=== PATIENT | female | born 1960 | race African-American/Black ===

== ENCOUNTER 2016-09-19 10:35 | Emergency (ER) ==
[2016-09-19 11:24] LABS: MANUAL DIFF NEEDED? NO
[2016-09-19 11:25] LABS: URINE SOURCE CLEAN CATCH
[2016-09-19 11:29] LABS: BASO% 0.3 % (0.0-0.8); EOS# 0.03 X1000 (0.0-0.7); EOS% 0.3 % (0.0-10.0); HEMATOCRIT 37.6 % (37.0-47.0); HEMOGLOBIN 12.5 g/dL (12.0-16.0); LYMPH# 1.07 X1000 (1.2-3.4); LYMPH% 11.2 % (20.5-51.1); MCH 28.7 PG (27-31); MCHC 33.2 g/dL (33-37); MCV 86.2 FL (81-99); MONO# 0.78 X1000 (0.11-0.59); MONO% 8.2 % (1.7-9.3); MPV 9.8 FL (7.4-10.4); PLT 313 X1000 (130-400); RBC 4.36 XMIL (4.2-5.4)
[2016-09-19 11:33] LABS: BILIRUBIN URINE NEGATIVE (NEGATIVE); BLOOD URINE NEGATIVE (NEGATIVE); COLOR YELLOW; GLUCOSE URINE NEGATIVE (NEGATIVE); LEUKOCYTES URINE LARGE (NEGATIVE); NITRITE URINE NEGATIVE (NEGATIVE); PROTEIN URINE TRACE mg/dL (NEGATIVE); SP GRAVITY URINE 1.021; TURBIDITY URINE HAZY (CLEAR); UROBILINOGEN URINE NORMAL (NORMAL)
[2016-09-19 11:35] LABS: URINE MICRO REVIEW NEEDED? YES
[2016-09-19 11:43] LABS: AGAP 14; ALBUMIN 3.9 g/dL (3.5-5.0); ALKALINE PHOSPHATASE 111 U/L (32-104); AMYLASE 78 U/L (20-200); BUN 8 mg/dL (8-22); CALCIUM 9.3 mg/dL (8.8-10.2); CHLORIDE 97 mmol/L (98-107); COSMO 270; GOT 14 U/L (10-30); GPT 10 U/L (10-36); LIPASE 17 U/L (13-60); POTASSIUM 3.9 mmol/L (3.5-5.1); SODIUM 136 mmol/L (136-145); TCO2 25 mmol/L (25-35); TOTAL BILIRUBIN 0.38 mg/dL (0.20-1.00); TOTAL PROTEIN 7.5 g/dL (6.3-8.3)
[2016-09-19 11:48] LABS: UR EPITHELIAL CELLS >10 /HPF (<10); URINE BACTERIA 2+ /HPF; URINE CULTURE NEEDED? YES; URINE RBC <10 /HPF (<10)
[2016-09-19 11:54] LABS: URINE CASTS NONE SEEN; URINE CRYSTALS NONE SEEN; URINE SMALL ROUND CELLS NONE SEEN
--- NOTE | 2016-09-19 13:45 | PROVIDER DOCUMENTATION ---
HPI-Abdominal Pain/GI Problem - General Chief Complaint: Abdominal Pain Stated Complaint: ABD PAIN,RT /LT SIDE PAIN Time Seen by Provider: 09/19/16 13:29 Source: patient Allergies/Adverse Reactions: Patient Allergies Allergy/AdvReac Type Severity Reaction Status Date / Time No Known Allergies Allergy Verified 01/06/16 00:30 Home Medications: Home Medication List Medication Instructions Recorded Confirmed Last Taken Type Albuterol Sulfate [Proair Hfa] 8.5 gm IH Q4-6H PRN PRN 01/02/16 01/06/16 History Bimatoprost 2.5 ml OP QHS 01/02/16 01/06/16 01/05/16 History Hydrocodone/Acetaminophen [[place] 1 each PO DAILY PRN PRN #20 tablet 01/05/1603/1501/05/16 Rx 7.5-325 Tablet] Nicotine Patch [Nicoderm Patch] 42 mg TD DAILY #14 [email or web address] 01/05/16 01/06/16 01/05/16 Rx Benzonatate [Tessalon] 100 mg PO TID PRN PRN #21 capsule 09/19/16 Unknown Rx Sulfamethoxazole/Trimethoprim 1 each PO BID #14 tablet 09/19/16 Unknown Rx [Bactrim Ds Tablet] - History of Present Illness-ABD Nature of Presenting Problems: 55 y/o F with history of COPD presents with RUQ pain that began last night. Patient states pain is cramping and intermittent and worse with movement. She reports similar pain in the past when she gets "muscle cramps". She denies any history of abdominal surgery. Abdominal Pain Onset Location: reports: RUQ Pain Radiation: reports: no radiation Quality of Pain: reports: cramping Severity in ED: reports: moderate Onset/Duration: reports: last night Timing: reports: still present, intermittent Activities at Onset: reports: none Exposure to sick contacts?: No Modifying Factors: improves with: movement (worsens) Associated Symptoms: reports: cough (chronic secondary to COPD). denies: back/ neck pain, chest pain, diarrhea, fever/chills, nausea, vomiting Last BM: this morning Dark Stools Present?: reports: none noticed Rectal Bleeding: reports: none Rectal Pain: reports: none Emesis Description: reports: none Review of Systems - Adult - REVIEW OF SYSTEMS - ADULT Constitutional: reports: no symptoms reported. denies: chills, fever Eyes: reports: no symptoms reported. denies: decreased vision, blurred vision Ears, Nose, Mouth & Throat: reports: no symptoms reported. denies: ear pain, hearing loss Cardiovascular: reports: no symptoms reported. denies: chest pain Respiratory: reports: chronic cough. denies: shortness of breath, wheezing Gastrointestinal: reports: see HPI Genitourinary: reports: no symptoms reported. denies: dysuria, discharge, frequency, flank pain, hematuria Musculoskeletal: reports: no symptoms reported. denies: back pain, neck pain Integumentary: reports: no symptoms reported. denies: itching, rash Neurological: reports: no symptoms reported. denies: dizziness/vertigo, headache/migraines Psychiatric: reports: no symptoms reported Endocrine: reports: no symptoms reported Hematologic/Lymphatic: reports: no symptoms reported Allergic/Immunologic: reports: no symptoms reported All Other Systems: Reviewed and Negative Past History - Adult - PAST MEDICAL HISTORY-ADULT Review of Records: reports: Nursing Assessment Review, Medications Reviewed Major Childhood Illnesses: reports: denies history Cardiovascular: reports: hyperlipidemia Respiratory: reports: COPD Endocrine/Immune: reports: anemia Other Conditions: reports: other cancer (throat), other (tongue/throat cancer) - PRIOR SURGERIES/PROCEDURES Surgical/Procedure History: reports: BTL, other (tumor removed in throat) - IMMUNIZATION STATUS Childhood Immunizations: See Nurse Assessment Flu Vaccine: See Nurse Assessment - FAMILY HISTORY Family History: reviewed, not pertinent Physical Exam-General - PHYSICAL EXAM-ADULT Initial Vital Signs Reviewed: Yes - CONSTITUTIONAL General Appearance: appears well, alert, no apparent distress - EYES Eyes: PERRL/EOMI, pink conjunctivae - HEAD, EARS, NOSE, MOUTH & THROAT HENMT: normocephalic/atraumatic, moist mucous membranes - NECK Neck: non-tender, full range of motion, supple - RESPIRATORY Respiratory: chest non-tender, lungs clear, normal breath sounds, no pleuratic chest pain, no respiratory distress, no accessory muscle use - CARDIOVASCULAR Cardiovascular: normal peripheral pulses, regular rate, rhythm, no edema - GASTROINTESTINAL (ABDOMEN) Abdominal Exam: normal bowel sounds, soft, tenderness (RUQ) - LYMPHATIC Lymphatic: no adenopathy - MUSCULOSKELETAL Back Exam: normal inspection, no CVA tenderness, no vertebral tenderness Extremity: normal inspection - SKIN Integumentary: normal color, normal turgor, warm/dry - NEUROLOGIC Neurologic: grossly normal, no motor/sensory deficits - PSYCHIATRIC Psych/Mental Status: normal mood/affect, normal thought content, normal thought process, oriented x 3 Progress - PLAN OF CARE/RESULTS Progress/Plan/Lab Results: Laboratory Tests 09/19/16 09/19/16 09/19/16 10:57 10:57 11:00 WBC 9.56 RBC 4.36 Hgb 12.5 Hct 37.6 MCV 86.2 MCH 28.7 MCHC 33.2 RDW Std Deviation 14.3 Plt Count 313 MPV 9.8 Immature Gran % (Auto) 0.0 Neut % (Auto) 80.0 H Lymph % (Auto) 11.2 L Bucks % (Auto) 8.2 Eos % (Auto) 0.3 Baso % (Auto) 0.3 Immature Gran # (Auto) 0.00 Neut # (Auto) 7.65 H Lymph # (Auto) 1.07 L Bucks # (Auto) 0.78 H Eos # (Auto) 0.03 Baso # (Auto) 0.03 Sodium 136 Potassium 3.9 Chloride 97 L Carbon Dioxide 25 Anion Gap 14 BUN 8 Creatinine 0.8 Estimated GFR/1.73 m2 > 60 BUN/Creatinine Ratio 10 Glucose 92 Calculated Osmolality 270 Calcium 9.3 Total Bilirubin 0.38 AST 14 ALT 10 Alkaline Phosphatase 111 H Total Protein 7.5 Albumin 3.9 Globulin 3.6 Albumin/Globulin Ratio 1.1 Amylase 78 Lipase 17 Urine Source CLEAN CATCH Urine Color YELLOW Urine Turbidity HAZY Urine pH 6.0 Ur Specific [place] 1.021 Urine Protein TRACE A Ur Glucose (Stick) NEGATIVE Ur Ketones (Stick) NEGATIVE Urine Blood NEGATIVE Urine Nitrite NEGATIVE Urine Bilirubin NEGATIVE Urobilinogen Dipstick NORMAL Urine Leukocytes LARGE A Urine WBC (Auto) 10-20 A Urine RBC (Auto) <10 U Epithel Cells (Auto) >10 A Urine Bacteria (Auto) 2+ Urine Crystals NONE SEEN Small Round Cells NONE SEEN Urine Casts NONE SEEN Urine Yeast-like Cells NONE SEEN Orders Category Date Time Status CHEST-2 VIEWS [RAD] Stat Exams 09/19/16 13:28 Completed US ABDOMEN-COMPLETE [US] Stat Exams 09/19/16 13:28 Draft AMYLASE [CHEM] Stat Lab 09/19/16 10:57 Completed CBC WITH ELECTRONIC DIFF [HEME] Stat Lab 09/19/16 10:57 Completed COMPREHENSIVE METABOLIC PANEL [CHEM] Stat Lab 09/19/16 10:57 Completed LIPASE [CHEM] Stat Lab 09/19/16 10:57 Completed URINALYSIS W/POSS RFLX CULT [URINALYSIS] Stat Lab 09/19/16 11:00 Completed URINE CULTURE [RM] Routine Lab 09/19/16 12:28 Received URINE MANUAL MICROSCOPIC [URINALYSIS] Stat Lab 09/19/16 11:00 Completed Vital Signs Temp Pulse Resp BP Pulse Ox 09/19/16 10:51 98.4 F 86 20 104/75 100 No Known Allergies Allergy (Verified 01/06/16 00:30) Albuterol Sulfate [Proair Hfa] 8.5 gm IH Q4-6H PRN PRN 01/02/16 Bimatoprost 2.5 ml OP QHS 01/02/16 Hydrocodone/Acetaminophen [[place] 7.5-325 Tablet] 1 each PO DAILY PRN PRN #20 tablet 01/05/16 Nicotine Patch [Nicoderm Patch] 42 mg TD DAILY #14 [email or web address] 01/05/16 I&O 09/18/16 09/19/16 09/20/16 06:59 06:59 06:59 Output Total 30 Balance -30 Laboratory 09/19/16 09/19/16 09/19/16 11:00 10:57 10:57 WBC 9.56 RBC 4.36 Hgb 12.5 Hct 37.6 MCV 86.2 MCH 28.7 MCHC 33.2 RDW Std Deviation 14.3 Plt Count 313 MPV 9.8 Immature Gran % (Auto) 0.0 Neut % (Auto) 80.0 H Lymph % (Auto) 11.2 L Bucks % (Auto) 8.2 Eos % (Auto) 0.3 Baso % (Auto) 0.3 Immature Gran # (Auto) 0.00 Neut # (Auto) 7.65 H Lymph # (Auto) 1.07 L Bucks # (Auto) 0.78 H Eos # (Auto) 0.03 Baso # (Auto) 0.03 Sodium 136 Potassium 3.9 Chloride 97 L Carbon Dioxide 25 Anion Gap 14 BUN 8 Creatinine 0.8 Estimated GFR/1.73 m2 > 60 BUN/Creatinine Ratio 10 Glucose 92 Calculated Osmolality 270 Calcium 9.3 Total Bilirubin 0.38 AST 14 ALT 10 Alkaline Phosphatase 111 H Total Protein 7.5 Albumin 3.9 Globulin 3.6 Albumin/Globulin Ratio 1.1 Amylase 78 Lipase 17 Urine Source CLEAN CATCH Urine Color YELLOW Urine Turbidity HAZY Urine pH 6.0 Ur Specific [place] 1.021 Urine Protein TRACE A Ur Glucose (Stick) NEGATIVE Ur Ketones (Stick) NEGATIVE Urine Blood NEGATIVE Urine Nitrite NEGATIVE Urine Bilirubin NEGATIVE Urobilinogen Dipstick NORMAL Urine Leukocytes LARGE A Urine WBC (Auto) 10-20 A Urine RBC (Auto) <10 U Epithel Cells (Auto) >10 A Urine Bacteria (Auto) 2+ Urine Crystals NONE SEEN Small Round Cells NONE SEEN Urine Casts NONE SEEN Urine Yeast-like Cells NONE SEEN - REASSESSMENT Reassessment #1 Time Reassessed: 15:21 (Patient stable. CXR shows poss RUL infiltrate. Normal WBC and SpO2 100%. UA with WBC and bacteria, but also contaminated with epithelial cells. Discussed with Dr. Low who also viewed the xray with me. Advised bactrim to cover for poss infiltrate and UTI.) Status: unchanged - XRAY 1 XRAY Study: Chest XRAY Interpretation: poss RUL infiltrate vs. fibrosis - CT/MRI 1 CT Study: Abdomen CT Results: no acute process Departure - Departure Time of Disposition Order: 15:23 DIAGNOSIS: Lung infiltrate UTI (urinary tract infection) Qualifiers: Urinary tract infection type: site unspecified Disposition: HOME 01 Certified Medical Emergency: Emergent Condition: Good Additional Instructions: Follow up with your primary care doctor for recheck and repeat chest xray within 1 week. Return to ER for any new or worsening symptoms. ED Follow Up Instructions: You have been treated by a care provider in the Emergency Department. These instructions are being provided to you so you can have an understanding of how to care for yourself upon discharge. Upon discharge from the Emergency Department, you are responsible for making arrangements for follow-up care by a physician of your choice. Take all prescribed medications as directed. Return to the Emergency Department immediately for any new or worsening symptoms. You may call the Physician Referral phone number at [phone] to obtain a list of Physicians who are taking new patients. Prescriptions: Sulfamethoxazole/Trimethoprim [Bactrim Ds Tablet] 1 each PO BID #14 tablet Benzonatate [Tessalon] 100 mg PO TID PRN PRN #21 capsule PRN Reason: Cough Attestation - Physician/ IAN Attestation Patient care was provided by Advanced Practice Provider:: Yes Advanced Practice Provider:: Sosa Stewart Advanced Practice Provider documentation review:: The Mid-level provider documentation, treatment plan and medical decision making was reviewed by the physician who agrees with all treatment and medical decision making by the MLP.
--- NOTE | 2016-09-19 14:42 | Diag Imaging Result Document ---
PROCEDURE NAME: US ABDOMEN-COMPLETE - 09/19/2016 COMPLETE ABDOMINAL ULTRASOUND: COMPARISON: None available. FINDINGS: The gallbladder appears normal with no stones, wall thickening, or pericholecystic fluid. The common bile duct is normal in diameter. Sonographic Wesley's sign was reported to be negative. The liver, visualized pancreas, aorta, and IVC are grossly unremarkable. There is a 1.1 cm simple-appearing renal cyst at the upper pole of the left kidney. The kidneys are grossly unremarkable, otherwise. IMPRESSION: Essentially unremarkable abdominal ultrasound.
--- NOTE | 2016-09-19 15:02 | Diag Imaging Result Document ---
PROCEDURE NAME: CHEST-2 VIEWS - 09/19/2016 FRONTAL AND LATERAL CHEST, TWO VIEWS: COMPARISON: 01/02/2016. FINDINGS: The lungs are well expanded. The heart is not enlarged. The pulmonary vessels are not distended. There is fibrosis in the upper right lung. However, the markings are more pronounced on the current exam thus there may be an underlying infiltrate as well. No pleural effusions. IMPRESSION: I suspect that there is combination of fibrosis and infiltrates in the upper right lung.
[2016-09-19 15:48] VITALS: BP 117/78
== END 2016-09-19 15:48 | disposition home or self-care (01) ==
LOC: ED 10:35
DX: N39.0 Urinary tract infection, site not specified (principal); R91.8 Other nonspecific abnormal finding of lung field; R10.11 Right upper quadrant pain; R05 Cough; R10.811 Right upper quadrant abdominal tenderness; E78.5 Hyperlipidemia, unspecified; J44.9 Chronic obstructive pulmonary disease, unspecified; Z79.899 Other long term (current) drug therapy; Z85.810 Personal history of malignant neoplasm of tongue; Z85.818 Personal history of malignant neoplasm of other sites of lip, oral cavity, and pharynx
CPT/HCPCS: 71020; 76700; 80053; 81001; 82150; 83690; 85025; 87088

== ENCOUNTER 2017-02-09 05:56 | Inpatient (IN) ==
[2017-02-09] MEDS ORDERED: D50W SYRINGE IV ONE ×2 (06:00→14:38)
[2017-02-09] MEDS ORDERED: D50W SYRINGE ONE (06:02)
[2017-02-09] MEDS ORDERED: NARCAN ONE (06:08)
[2017-02-09] MEDS ORDERED: ATIVAN ONE (06:11)
[2017-02-09] MEDS ORDERED: ATIVAN IV ONE (06:15)
[2017-02-09] MEDS ORDERED: ZOFRAN IV ONE (06:24)
[2017-02-09] MEDS ORDERED: NS 1,000 ML IV ONE ×2 (06:24→08:47)
[2017-02-09 06:33] LABS: MANUAL DIFF NEEDED? NO; URINE CULTURE NEEDED? NO; URINE MICRO REVIEW NEEDED? NO; URINE SOURCE CLEAN CATCH
[2017-02-09] MEDS ORDERED: NARCAN IV ONE (06:39)
[2017-02-09 06:40] LABS: ALLEN TEST YES; BE -4.9 mmoll (-3.0-3.0); BLOOD TYPE ARTERIAL; DRAW SITE R RADIAL; METHB 1.3 % (0.0-1.5); O2(CT) 15.8 mL/dL (15.0-23.0); PCO2(98.6) 45 mmHg (35-45); PO2(98.6) 104 mmHg (60-100); SAMPLE BLOOD; SAO2 99.1 % (95.0-100.0); pH(98.6) 7.29 (7.35-7.45)
[2017-02-09 06:41] LABS: BASO% 0.3 % (0.0-0.8); EOS# 0.13 X1000 (0.0-0.7); EOS% 0.8 % (0.0-10.0); HEMATOCRIT 36.5 % (37.0-47.0); HEMOGLOBIN 12.6 g/dL (12.0-16.0); IMM GRAN# 0.04 X1000 (0.0-0.04); IMM GRAN% 0.3 % (0.0-0.5); LYMPH# 2.63 X1000 (1.2-3.4); LYMPH% 16.8 % (20.5-51.1); MCH 30.9 PG (27-31); MCHC 34.5 g/dL (33-37); MCV 89.5 FL (81-99); MONO# 0.57 X1000 (0.11-0.59); MONO% 3.6 % (1.7-9.3); MPV 9.6 FL (7.4-10.4); NEUT% 78.2 % (42.2-75.2); PLT 442 X1000 (130-400); RBC 4.08 XMIL (4.2-5.4)
[2017-02-09 06:41] LABS: MODALITY ROOM AIR
[2017-02-09 06:50] LABS: AGAP 23; ALBUMIN 4.3 g/dL (3.5-5.0); ALKALINE PHOSPHATASE 102 U/L (32-104); BUN 14 mg/dL (8-22); CALCIUM 9.1 mg/dL (8.8-10.2); CHLORIDE 104 mmol/L (98-107); COSMO 294; GOT 67 U/L (10-30); GPT 48 U/L (10-36); POTASSIUM 3.2 mmol/L (3.5-5.1); SODIUM 149 mmol/L (136-145); TCO2 22 mmol/L (25-35); TOTAL PROTEIN 7.4 g/dL (6.3-8.3); UR AMPHETAMINES QUAL NONE DETECTED (NONE DETECT); UR BARBITUATES QUAL NONE DETECTED (NONE DETECT); UR BENZODIAZEPIN QUAL NONE DETECTED (NONE DETECT); UR CANNABINOIDS QUAL PRESUMPTIVE POSITIVE (NONE DETECT); UR COCAINE QUAL NONE DETECTED (NONE DETECT); UR METHADONE QUAL NONE DETECTED (NONE DETECT); UR OPIATES QUAL NONE DETECTED (NONE DETECT); UR OXYCODONE QUAL NONE DETECTED (NONE DETECT); UR PCP QUAL NONE DETECTED (NONE DETECT)
[2017-02-09 06:57] LABS: CK PROFILE 236 U/L (24-173)
--- NOTE | 2017-02-09 07:04 | Diag Imaging Result Doc PS360 ---
EXAM: HEAD W/O CONTRAST HISTORY: unresponsive TECHNIQUE: CT of the head without contrast COMMENT: There is no evidence of mass effect, bleed, abnormal extra-axial fluid collection, or hydrocephalus. There is beam hardening artifact from a clip anterolateral to the suprasellar cistern on the right. There is patient motion artifact. There are some patchy areas of subcortical lucency particularly in the left parietal lobe. This has been present since at least the previous study of 11/25/2015. There is some mucosal thickening in the left maxillary sinus. There is deformity of the right lamina papyracea. This was also present on the previous study.There is calcification in the left vertebral artery. IMPRESSION: Chronic ischemic changes. No evidence of acute disease. Electronically signed by Goldy Xie 02/09/2017 7:01 AM
--- NOTE | 2017-02-09 07:05 | Diag Imaging Result Doc PS360 ---
EXAM: FLAT/UPRIGHT ABD/1 VIEW CHEST HISTORY: AMS TECHNIQUE: Flat and upright abdomen with upright AP chest COMMENT: The bowel gas pattern is unremarkable. There is no evidence for organomegaly or mass. There is some stool and gas in the distal colon. There are ill-defined opacities in the right upper lobe which were also present on 09/19/2016 and are suggestive of reactivation mycobacterial or other granulomatous disease. There is COPD. IMPRESSION: No evidence of acute disease. Electronically signed by Goldy Xie 02/09/2017 7:03 AM
[2017-02-09 07:07] LABS: BILIRUBIN URINE NEGATIVE (NEGATIVE); BLOOD URINE NEGATIVE (NEGATIVE); COLOR YELLOW; GLUCOSE URINE NEGATIVE (NEGATIVE); LEUKOCYTES URINE NEGATIVE (NEGATIVE); NITRITE URINE NEGATIVE (NEGATIVE); PROTEIN URINE NEGATIVE (NEGATIVE); SP GRAVITY URINE 1.017; TURBIDITY URINE CLEAR (CLEAR); UROBILINOGEN URINE NORMAL (NORMAL)
[2017-02-09 07:08] LABS: UR EPITHELIAL CELLS <10 /HPF (<10); URINE BACTERIA NEGATIVE /HPF; URINE RBC <10 /HPF (<10); URINE WBC <10 /HPF (<10)
[2017-02-09 07:15] LABS: CK INDEX 1.1 (0.0-2.5); CK-MB 2.59 ng/mL (0.0-5.0)
[2017-02-09] MEDS ORDERED: NS 1,000 ML ONE (08:06)
[2017-02-09] MEDS ORDERED: ZOSYN 3.375 GM/NS 3.375 GM/50 ML IVPB IV ONE (08:17)
[2017-02-09] MEDS ORDERED: VANCOMYCIN 1 GM/NS 1 GM/250 ML IVPB IV ONE (08:17)
[2017-02-09] MEDS ORDERED: M.V.I.-12 10 ML, FOLIC ACID 1 MG, MAGNESIUM SULFATE 1 GM, THIAMINE 100 MG in NS 1,000 ML IV ONE (08:27)
[2017-02-09] MEDS ORDERED: POTASSIUM CHLORIDE 60 MEQ in NS 500 ML IV ONE (08:29)
--- NOTE | 2017-02-09 08:41 | PROVIDER DOCUMENTATION ---
HPI-General Adult - General Chief Complaint: Altered Mental Status Stated Complaint: ETOH Time Seen by Provider: 02/09/17 06:20 Source: family, EMS Allergies/Adverse Reactions: Patient Allergies Allergy/AdvReac Type Severity Reaction Status Date / Time No Known Allergies Allergy Verified 09/19/16 15:47 Home Medications: Home Medication List Medication Instructions Recorded Confirmed Last Taken Type Albuterol Sulfate [Proair Hfa] 8.5 gm IH Q4-6H PRN PRN 01/02/16 09/19/16 History Bimatoprost 2.5 ml OP QHS 01/02/16 09/19/16 01/05/16 History Hydrocodone/Acetaminophen [[place] 1 each PO DAILY PRN PRN #20 tablet 01/05/1601/05/16 Rx 7.5-325 Tablet] Benzonatate [Tessalon] 100 mg PO TID PRN PRN #21 capsule 09/19/16 Unknown Rx Sulfamethoxazole/Trimethoprim 1 each PO BID #14 tablet 09/19/16 Unknown Rx [Bactrim Ds Tablet] - History of Present Illness -Gen Adult Nature of Presenting Problems: Found unresponsive and cold to touch/diaphoresis this morning. Per boyfriend, pt is a daily drinker. Came home last night at midnight and had a brief conversation with the boyfriend. H/o ETOH withdrawal related SZ, R eye glaucoma and brain aneurysm. Pt has a rectal temp of 93 on ED arrival. With 2 SZ episodes. SO2 = 100% on RA. Pt moves all fours but obtunded and does not follow commands and does not answer questions. Location of Pain/Injury: reports: other (Unknown) Onset/Duration: reports: this morning Timing: reports: still present Context/Activities at Onset: reports: other (Unknown) Modifying Factors: improves with: nothing Associated Symptoms: reports: seizure Similar Symptoms Previously?: No Recently seen or treated by another doctor?: No Review of Systems - Adult - REVIEW OF SYSTEMS - ADULT ROS:: unobtainable per condition Constitutional: denies: chills, fever Respiratory: denies: cough, shortness of breath Gastrointestinal: denies: nausea, vomiting Neurological: reports: see HPI, seizure, other (Unresponsive) Past History - Adult - PAST MEDICAL HISTORY-ADULT Review of Records: reports: Old Records Reviewed, Nursing Assessment Review Major Childhood Illnesses: reports: denies history Cardiovascular: reports: hyperlipidemia Respiratory: reports: COPD Endocrine/Immune: reports: anemia Other Conditions: reports: other cancer (throat), other (tongue/throat cancer) - PRIOR SURGERIES/PROCEDURES Surgical/Procedure History: reports: BTL, other (tumor removed in throat) - IMMUNIZATION STATUS Childhood Immunizations: See Nurse Assessment Flu Vaccine: See Nurse Assessment - FAMILY HISTORY Family History: reviewed, not pertinent - SOCIAL HISTORY Smoking: cigarettes Substance Use: alcohol Living Situation: family Physical Exam-General - PHYSICAL EXAM-ADULT Initial Vital Signs Reviewed: Yes - CONSTITUTIONAL General Appearance: no apparent distress, cachetic, thin, obtunded, other (SZ spells observed) - EYES Eyes: other (R pupil slightly larger than L side, about 3mm, L sifr 2 mm. Sluggish response to light b/l) - HEAD, EARS, NOSE, MOUTH & THROAT HENMT: normocephalic/atraumatic - NECK Neck: non-tender, full range of motion, supple, normal inspection. negative: Brudzinski's sign, C-spine tenderness, limited range of motion, lymphadenopathy , tender midline - RESPIRATORY Respiratory: lungs clear, normal breath sounds, no pleuratic chest pain, no respiratory distress, no accessory muscle use - CARDIOVASCULAR Cardiovascular: normal peripheral pulses, regular rate, rhythm, no edema, no gallop, no JVD, no murmur - GASTROINTESTINAL (ABDOMEN) Abdominal Exam: non tender, soft, no organomegaly, no pulsatile mass - LYMPHATIC Lymphatic: no adenopathy - MUSCULOSKELETAL Back Exam: normal inspection, no CVA tenderness, no vertebral tenderness Extremity: normal range of motion, normal inspection, no pedal edema, no calf tenderness - SKIN Integumentary: diaphoresis, other (Cold to touch) - NEUROLOGIC Neurologic: other (Obtunded, but moves all fours.). negative: facial droop - PSYCHIATRIC Psych/Mental Status: other (See above) Progress - PLAN OF CARE/RESULTS Progress/Plan/Lab Results: Vital Signs - 8 hr 02/09/17 06:25 02/09/17 07:26 02/09/17 07:59 Temperature 93.8 F L 96.0 F L Pulse Rate 72 74 78 Respiratory Rate 24 16 14 Blood Pressure 101/66 108/70 92/65 O2 Sat by Pulse Oximetry 92 L 98 96 Laboratory Results - last 24 hr 02/09/17 02/09/17 02/09/17 06:03 06:03 06:03 WBC RBC Hgb Hct MCV MCH MCHC RDW Std Deviation Plt Count MPV Immature Gran % (Auto) Neut % (Auto) Lymph % (Auto) Banks % (Auto) Eos % (Auto) Baso % (Auto) Immature Gran # (Auto) Neut # (Auto) Lymph # (Auto) Banks # (Auto) Eos # (Auto) Baso # (Auto) Specimen Type Sample Site pH pCO2 pO2 HCO3 Base Excess Oxyhemoglobin ABG O2 Sat (Calculated) ABG O2 Saturation ABG Carboxyhemoglobin ABG Methemoglobin Akil Test A-a O2 Difference Total Hemoglobin Lactate Blood Gas Modality FiO2 % Sodium 149 H Potassium 3.2 L Chloride 104 Carbon Dioxide 22 L Anion Gap 23 BUN 14 Creatinine 0.8 Estimated GFR/1.73 m2 > 60 BUN/Creatinine Ratio 18 Glucose 50 L Calculated Osmolality 294 Calcium 9.1 Total Bilirubin 0.20 AST 67 H ALT 48 H Alkaline Phosphatase 102 Creatine Kinase 236 H Creatine Kinase Index 1.1 CK-MB (CK-2) 2.59 Troponin T < 0.010 Total Protein 7.4 Albumin 4.3 Globulin 3.1 Albumin/Globulin Ratio 1.4 Lipase Urine Source Urine Color Urine Turbidity Urine pH Ur Specific [place] Urine Protein Ur Glucose (Stick) Ur Ketones (Stick) Urine Blood Urine Nitrite Urine Bilirubin Urobilinogen Dipstick Urine Leukocytes Urine WBC (Auto) Urine RBC (Auto) U Epithel Cells (Auto) Urine Bacteria (Auto) Urine Opiates Screen Ur Oxycodone Screen Ur Methadone, Qual Ur Barbiturates Screen Ur Phencyclidine Scrn Ur Amphetamines Screen U Benzodiazepines Scrn Urine Cocaine Screen U Cannabinoids Screen Plasma/Serum Ethyl Alc 91 H 02/09/17 02/09/17 02/09/17 06:03 06:03 06:03 WBC 15.68 H RBC 4.08 L Hgb 12.6 Hct 36.5 L MCV 89.5 MCH 30.9 MCHC 34.5 RDW Std Deviation 13.3 Plt Count 442 H MPV 9.6 Immature Gran % (Auto) 0.3 Neut % (Auto) 78.2 H Lymph % (Auto) 16.8 L Banks % (Auto) 3.6 Eos % (Auto) 0.8 Baso % (Auto) 0.3 Immature Gran # (Auto) 0.04 Neut # (Auto) 12.27 H Lymph # (Auto) 2.63 Banks # (Auto) 0.57 Eos # (Auto) 0.13 Baso # (Auto) 0.04 Specimen Type Sample Site pH pCO2 pO2 HCO3 Base Excess Oxyhemoglobin ABG O2 Sat (Calculated) ABG O2 Saturation ABG Carboxyhemoglobin ABG Methemoglobin Akil Test A-a O2 Difference Total Hemoglobin Lactate Blood Gas Modality FiO2 % Sodium Potassium Chloride Carbon Dioxide Anion Gap BUN Creatinine Estimated GFR/1.73 m2 BUN/Creatinine Ratio Glucose Calculated Osmolality Calcium Total Bilirubin AST ALT Alkaline Phosphatase Creatine Kinase Creatine Kinase Index CK-MB (CK-2) Troponin T Total Protein Albumin Globulin Albumin/Globulin Ratio Lipase Urine Source CLEAN CATCH Urine Color YELLOW Urine Turbidity CLEAR Urine pH 5.0 Ur Specific [place] 1.017 Urine Protein NEGATIVE Ur Glucose (Stick) NEGATIVE Ur Ketones (Stick) 10 A Urine Blood NEGATIVE Urine Nitrite NEGATIVE Urine Bilirubin NEGATIVE Urobilinogen Dipstick NORMAL Urine Leukocytes NEGATIVE Urine WBC (Auto) <10 Urine RBC (Auto) <10 U Epithel Cells (Auto) <10 Urine Bacteria (Auto) NEGATIVE Urine Opiates Screen NONE DETECTED Ur Oxycodone Screen NONE DETECTED Ur Methadone, Qual NONE DETECTED Ur Barbiturates Screen NONE DETECTED Ur Phencyclidine Scrn NONE DETECTED Ur Amphetamines Screen NONE DETECTED U Benzodiazepines Scrn NONE DETECTED Urine Cocaine Screen NONE DETECTED U Cannabinoids Screen PRESUMPTIVE POSITIVE A Plasma/Serum Ethyl Alc 02/09/17 02/09/17 06:03 06:30 WBC RBC Hgb Hct MCV MCH MCHC RDW Std Deviation Plt Count MPV Immature Gran % (Auto) Neut % (Auto) Lymph % (Auto) Banks % (Auto) Eos % (Auto) Baso % (Auto) Immature Gran # (Auto) Neut # (Auto) Lymph # (Auto) [place] # (Auto) Eos # (Auto) Baso # (Auto) Specimen Type ARTERIAL Sample Site R RADIAL pH 7.29 L pCO2 45 pO2 104 H HCO3 21.0 Base Excess -4.9 L Oxyhemoglobin 92.8 L ABG O2 Sat (Calculated) 15.8 ABG O2 Saturation 99.1 ABG Carboxyhemoglobin 5.00 H ABG Methemoglobin 1.3 Aikl Test YES A-a O2 Difference -11.0 Total Hemoglobin 12.0 Lactate 5.00 H Blood Gas Modality ROOM AIR FiO2 % 21.0 Sodium Potassium Chloride Carbon Dioxide Anion Gap BUN Creatinine Estimated GFR/1.73 m2 BUN/Creatinine Ratio Glucose Calculated Osmolality Calcium Total Bilirubin AST ALT Alkaline Phosphatase Creatine Kinase Creatine Kinase Index CK-MB (CK-2) Troponin T Total Protein Albumin Globulin Albumin/Globulin Ratio Lipase 19 Urine Source Urine Color Urine Turbidity Urine pH Ur Specific [place] Urine Protein Ur Glucose (Stick) Ur Ketones (Stick) Urine Blood Urine Nitrite Urine Bilirubin Urobilinogen Dipstick Urine Leukocytes Urine WBC (Auto) Urine RBC (Auto) U Epithel Cells (Auto) Urine Bacteria (Auto) Urine Opiates Screen Ur Oxycodone Screen Ur Methadone, Qual Ur Barbiturates Screen Ur Phencyclidine Scrn Ur Amphetamines Screen U Benzodiazepines Scrn Urine Cocaine Screen U Cannabinoids Screen Plasma/Serum Ethyl Alc Orders Category Date Time Status FSBS [Finger Stick Blood Sugar (ED)] DIRECTED Care 02/09/17 07:[address] THORAX W/CONTRAST [CT] Stat Exams 02/09/17 08:16 Ordered HEAD W/O CONTRAST [CT] Stat Exams 02/09/17 06:18 Completed flat [FLAT/UPRIGHT ABD/1 VIEW CHEST] [RAD] Stat Exams 02/09/17 06:27 Completed ABG [RESP] Routine Lab 02/09/17 06:30 Completed ACETAMINOPHEN [TDM] Stat Lab 02/09/17 08:26 Ordered ACETONE SERUM [CHEM] Stat Lab 02/09/17 08:26 Ordered ALCOHOL BLOOD Stat Lab 02/09/17 06:03 Completed BLOOD CULTURE [BLDCUL] Stat Lab 02/09/17 06:24 Ordered CBC WITH ELECTRONIC DIFF [HEME] Stat Lab 02/09/17 06:03 Completed CK PROFILE [SP CHEM] Q8H Lab 02/09/17 08:45 Uncollected CK PROFILE [SP CHEM] Q8H Lab 02/09/17 16:45 Uncollected CK PROFILE [SP CHEM] Q8H Lab 02/10/17 00:45 Uncollected CK PROFILE [SP CHEM] Stat Lab 02/09/17 06:03 Completed COMPREHENSIVE METABOLIC PANEL [CHEM] Stat Lab 02/09/17 06:03 Completed FOLATE Timed Lab 02/09/17 08:34 Ordered HEPATITIS PROFILE [HH] Routine Lab 02/09/17 08:33 Ordered HIV AB SCREEN [HH] Timed Lab 02/09/17 08:33 Ordered LACTATE, PLASMA [CHEM] Stat Lab 02/09/17 07:24 Ordered LIPASE [CHEM] Stat Lab 02/09/17 06:03 Completed MAGNESIUM [CHEM] Stat Lab 02/09/17 08:30 Ordered PHOSPHORUS [CHEM] Stat Lab 02/09/17 08:30 Ordered SALICYLATES [TDM] Stat Lab 02/09/17 08:26 Ordered SPUTUM CULTURE WITH GRAM STAIN [RM] Stat Lab 02/09/17 08:29 Uncollected TROPONIN T Stat Lab 02/09/17 06:03 Completed TSH Timed Lab 02/09/17 08:34 Ordered UA [UA NIMS W/REFLEX CULT] [URINALYSIS] Stat Lab 02/09/17 06:03 Completed URINE DRUG SCREEN Stat Lab 02/09/17 06:03 Completed VITAMIN B12 Timed Lab 02/09/17 08:34 Ordered 0.9% Sodium Chloride Inj [Ns] 1,000 ml Med 02/09/17 08:06 Discontinued .ROUTE As Directed 0.9% Sodium Chloride Inj [Ns] 1,000 ml Med 02/09/17 06:24 Discontinued IV 999 mls/hr Dextrose 50% Syringe [D50w Syringe] Med 02/09/17 06:02 Discontinued 50 ml .ROUTE .STK-MED ONE Dextrose 50% Syringe [D50w Syringe] Med 02/09/17 06:00 Discontinued 50 ml IV NOW ONE Lorazepam [Ativan] Med 02/09/17 06:11 Discontinued 2 mg .ROUTE .STK-MED ONE Lorazepam [Ativan] Med 02/09/17 06:15 Discontinued 2 mg IV NOW ONE Mvi [M.v.i.-12] 10 ml Med 02/09/17 08:27 Active Folic Acid 1 mg Magnesium Sulfate 1 gm Thiamine 100 mg 0.9% Sodium Chloride Inj [Ns] 1,000 ml IV NOW Naloxone [Narcan] Med 02/09/17 06:08 Discontinued 2 mg .ROUTE .STK-MED ONE Naloxone [Narcan] Med 02/09/17 06:39 Discontinued 2 mg IV NOW ONE Ondansetron [Zofran] Med 02/09/17 06:24 Discontinued 4 mg IV NOW ONE Piperacil/Tazobact 3.375 gm/Ns [Zosyn 3.375 gm/Ns] Med 02/09/17 08:17 Active 3.375 gm in 50 ml IV NOW Potassium Chloride 60 meq Med 02/09/17 08:29 Active 0.9% Sodium Chloride Inj [Ns] 500 ml IV ONCE Vancomycin 1 gm/Ns Med 02/09/17 08:17 Active 1 gm in 250 ml IV NOW EKG [EKG] Stat Ther 02/09/17 06:18 Ordered Transfer/Admit Order [TRANSFER] Routine Transfer 02/09/17 08:17 Ordered Result Diagrams: 02/09/17 06:03 02/09/17 06:03 - REASSESSMENT Reassessment #1 Time Reassessed: 08:46 Status: other (Stable. Admit to ICU) - EKG 1 EKG Interpretation (*Must complete 3 of following elements*): Abnormal Rate: 54 Rhythm: Sinus enrrique Kellogg: normal QRS: normal [place] Interval: normal - XRAY 1 XRAY Study: Chest, Abdomen Impression: Abnormal XRAY Interpretation: See Radiology reports for details. - CT/MRI 1 CT Study: Head Impression: Normal - CONSULTS/PCP/HOSPITALIST Notification #1 *Consult/PCP/Hospitalist*: Dr. Alvarenga/Dagoberto Time Discussed: 08:49 Consult Disposition: Will see in ED, Admit Departure - Departure Date of Disposition Decision: 02/09/17 Time of Disposition Decision: 08:49 DIAGNOSIS: Altered mental status, ETOH abuse, Hypothermia Disposition: ADMITTED INPATIENT 09 Certified Medical Emergency: Emergent Condition: Serious Referrals and Follow-Ups: None,PCP [Primary Care Provider] - - Critical Care Note This patient required my direct & personal management of CC.: Yes Total Time (mins): 60 Critical Care Statement: This patient required my direct personal management to treat or rule out processes, the absence of which, could potentiallly result in sudden, clinically significant life or limb threatening deterioration. Attestation - Physician/ IAN Attestation Patient care was provided by Advanced Practice Provider:: No The physician spent face to face time with patient:: Yes Advanced Practice Provider documentation review:: Supervising physician onsite and consulted in the evaluation and care of this patient. The physician did have a face to face encounter with the patient.
--- NOTE | 2017-02-09 09:07 | Diag Imaging Result Doc PS360 ---
EXAM: CT THORAX W/CONTRAST HISTORY: possible cavitary lung lesion TECHNIQUE: CT of the chest with intravenous contrast and dose reduction (clarity.) COMMENT: There is emphysematous change in both lungs with large blebs and bullae present in the apices. Multiple cavitary lesions which were present on 06/05/2016 and the right apex have regressed. There is a nodule in the right apex on image 33 measuring less than 9 mm in diameter which is not clearly identifiable on the previous study. Multiple small nodules and cavities are present in the superior segment of the right lower lobe most notably on image 36 where there is a 13 mm cavitary nodule. This was not present time the previous study. There was a nodule in the right lower lobe on image 56 the previous study which has regressed since the previous exam. There is a lesion present adjacent to the fissure on image 50 of the current study which previously was present on image 54. This has not changed appreciably in size. Nodules present previously in the azygos esophageal recess in the medial right lower lobe have regressed since the previous study. The appearance of the right lung has not changed appreciably. Severe confluence opacity and apparent bronchial thickening present in the inferior medial right upper lobe on the previous study has largely resolved. The appearance of the mediastinum has not changed significantly. There are no abnormal fluid collections. The regional skeleton is stable in appearance. IMPRESSION: Waxing and waning granulomatous lesions. While the large cavitary lesions have largely regressed, there are clearly some new nodules and cavities indicating active disease. Electronically signed by Goldy Xie 02/09/2017 9:04 AM
[2017-02-09] MEDS ORDERED: ATIVAN IV PRN (10:01)
[2017-02-09] MEDS ORDERED: VANCOMYCIN IV PER PHARMACY MISC SCH (10:20)
[2017-02-09 10:26] LABS: MAGNESIUM 1.6 mg/dL (1.5-2.7)
[2017-02-09 10:28] LABS: ACETAMINOPHEN < 1.2 ug/mL (10-30)
[2017-02-09] MEDS ORDERED: TUBERSOL ID ONE (10:37)
[2017-02-09] MEDS ORDERED: MAGNESIUM SULFATE 2 GM/S.W.I. 2 GM/50 ML IVPB IV ONE (10:37)
[2017-02-09 10:45] LABS: ACETONE SERUM NEGATIVE (NEGATIVE)
[2017-02-09] MEDS: SODIUM CHLORIDE 0.9% INJ SCH ×2 (10:59→22:30)
[2017-02-09] MEDS: PROTONIX IV SCH ×2 (10:59→22:30)
[2017-02-09 11:13] LABS: CK INDEX 1.2 (0.0-2.5); CK-MB 2.55 ng/mL (0.0-5.0)
[2017-02-09] MEDS ORDERED: ZOFRAN IV PRN (11:38)
[2017-02-09] MEDS ORDERED: D5W 1,000 ML IV SCH (12:00)
--- NOTE | 2017-02-09 12:05 | HISTORY AND PHYSICAL ---
CHIEF COMPLAINT: Unresponsiveness. HISTORY OF PRESENT ILLNESS: Ms. Mo is a 56-year-old female with a history of COPD, hyperlipidemia, anemia, throat cancer, and history of brain aneurysm who was found minimally responsive by her boyfriend this morning. She was also very cool to touch. She was then brought to the ER this morning and had apparently 2 witnessed seizures and was hypothermic with a rectal temperature of 93 degrees on arrival. She has a history of significant alcohol and drug dependence, her boyfriend reports that she has a daily drinker. The patient herself only reports that she drank last night for the first time in a few months back but her alcohol level is morning was 91. Head CT was performed that did not show anything acute. Chest x-ray did show there are ill-defined opacities in the right upper lobe which were present in August of this year and are suggestive of reactivation mycobacteria, other granulomatous disease. We did go ahead and decide to do a chest CT with contrast and it revealed waxing and waning granulomatous disease. There were large cavitary lesions that have largely regressed and some new nodules in cavities indicating active disease. It is unclear exactly what these represent, however , she does report she has been tested for TB in the past and it was negative. Indeed we have a negative TB results from 2015. Right now the patient is complaining of some abdominal pain. She has been nauseous over the past day. She denies any chest pain or shortness of breath. She is reporting a dry cough. Given the constellation of symptoms and issues, we are going to put her in the ICU for now under reverse isolation until we have a further grasp on her pulmonary status. PAST MEDICAL HISTORY: 1. Brain aneurysm status post repair. 2. History of esophageal cancer. 3. Anemia. 4. Nicotine dependence. 5. Polysubstance dependence. 6. Hyperlipidemia. 7. COPD. PAST SURGICAL HISTORY: The patient had a bilateral tubal ligation, esophageal tumor excision, and a brain aneurysm repair. SOCIAL HISTORY: Patient smokes about a half a pack to a pack a day. She drinks daily according to her boyfriend. She also smokes marijuana. She has 4 daughters. ALLERGIES: No known drug allergies. HOME MEDICATIONS: Currently being compiled. REVIEW OF SYSTEMS: A 14 point review of systems obtained and found to be negative with the exception of the HPI. PHYSICAL EXAMINATION: VITAL SIGNS: Blood pressure is 107/70, heart rate 74, respiratory rate 18, O2 saturation 98% on 2 L, temperature is 98.4 degrees. GENERAL: This is a chronically ill, frail and malnourished appearing 56-year- old female who appears older than stated age. She is lying in bed in no acute distress. NEUROLOGIC: The patient is a bit lethargic but her eyes are open spontaneously. She follows commands without focal deficits. She is orientated. HEENT: Head is atraumatic and normocephalic. Her pupils are equal and sluggish bilaterally. Trachea is midline. Oral mucosa is moist. CHEST: Diminished throughout with no adventitious sounds heard. CARDIOVASCULAR: Regular rate and rhythm. S1-S2 is noted. No murmurs. GASTROINTESTINAL: Soft and nondistended but tender in all 4 quadrants. There is no rigidity or guarding. EXTREMITIES: Without edema, clubbing or cyanosis. Pulses are 2+ bilaterally. DIAGNOSTIC DATA: Chest x-ray and chest CT: Please see HPI. Head CT does not show anything acute. There are chronic ischemic changes. WBC 15.6, hemoglobin 12.6, hematocrit 36.5, platelet count 442,000. ABG on room air revealed pH 7.29, pCO2 45, pO2 104, bicarb 21, carboxyhemoglobin is 5. Lactic acid is 5. Sodium 149, potassium 3.2, chloride 102, CO2 22, anion gap 23, BUN 14, creatinine 0.8, glucose 50, calcium 9.1. Phosphorus 2.7, magnesium 1.6. Total bilirubin 0.2, AST 67, ALT 48. Albumin 4.2. Lactic acid 2.6. TSH 0.85. Urinalysis is negative. Toxicology is positive for cannabinoids. Alcohol level 91. ASSESSMENT/PLAN: 1. Toxic metabolic encephalopathy: Likely illicit substance related and alcohol related. She is more awake and lucid at this time. Head CT is negative. There is also question of seizure. She will have Ativan for that. We will monitor her neuro response. Check thyroid, B12, folate, blood cultures and monitor. 2. Sepsis: Patient meets criteria with hypothermia, lactic acidosis, leukocytosis, mild hypotension. Source is unclear, however, she does have some abnormal x-ray and CT shows some cavitary lung lesions. Vancomycin and Zosyn have been started. 3. Cavitary lung lesions: We have ordered multiple infectious disease studies including fungal, TB, HIV, hepatitis, AFB and other TB testing. We have consulted Dr. Montero and started broad- spectrum antibiotics and Dr. Simon with Pulmonary. She reports negative TB testing in the past but we are going to go ahead and do a PPD today as well. 4. Hypernatremia: Likely volume related. Continue volume resuscitation. 5. Hypokalemia: Replacing and will recheck labs in the morning. 6. Elevated transaminases: Mild. We are checking hepatitis panel, acetaminophen and salicylate levels. We may do an abdominal ultrasound as well given her abdominal pain. 7. Deep venous thrombosis prophylaxis will be provided with SCDs for now. TIME SPENT: Critical care time with this patient 45 minutes. Dictated by ANA Peacock for Rhiannon Mars MD cc: ANA Peaocck MD MTDD
[2017-02-09] MEDS ORDERED: VANCOMYCIN 1,350 MG in NS 250 ML IV ONE (12:30)
--- NOTE | 2017-02-09 13:43 | Diag Imaging Result Doc PS360 ---
EXAM: US GB < RUQ (LIMITED) HISTORY: abd pain, elevated lfts TECHNIQUE: Right upper quadrant ultrasound COMMENT: The pancreas, aorta and inferior vena cava are within normal limits. The liver is unremarkable. There is antegrade flow in the portal vein. There is no evidence of biliary dilatation the common bile duct measuring 4 mm. The gallbladder is clear and nontender. There are no abnormal fluid collections. The right kidneys without evidence of hydronephrosis or mass. IMPRESSION: No definite abnormality. Electronically signed by Goldy Xie 02/09/2017 1:40 PM
[2017-02-09] MEDS: D10W 1,000 ML IV SCH (15:32)
--- NOTE | 2017-02-09 15:38 | CONSULTATION ---
DATE OF CONSULTATION: 02/09/2017 REFERRING PROVIDER: Dagoberto Yee, nurse practitioner and Dr. Mars. CHIEF COMPLAINT: Evaluation for cavitary lung disease, pneumonia. HISTORY OF PRESENTING ILLNESS: This is a 56-year-old female with a past history of COPD, hyperlipidemia, active smoker, history of esophageal cancer and brain aneurysm repair in the past, cavitary lung disease we been observing as an outpatient was ruled out in January 2015, she had serial CAT scans with variable results sometimes regression of cavitary lung disease. We suspected ANDREW in the past. Presented now with the main chief complaint her admission is unresponsiveness and there is marijuana in the drug urine toxicology. 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 PAST SURGICAL HISTORY: Esophageal tumor excision, brain aneurysm repair and tubal ligation. SOCIAL HISTORY: Active smoker, daily drinking, smokes marijuana. REVIEW OF SYSTEMS: As detailed in history of presenting illness, otherwise noncontributory. ALLERGIES: No known drug allergies. MEDICATIONS: Medications in the hospital were reviewed and they include Lovenox, Ativan, vancomycin, Zosyn, Protonix, Zofran, thiamine. PHYSICAL EXAMINATION: General: The patient is awake and communicative in bed. She is now respiratory isolation. Vital Signs: Noted. Head and Neck: Examined. Trachea midline. Chest Exam: Slight reduced entry bilaterally. Cardiac Examination: S1, S2. Abdominal Exam: Nontender. Extremities: No pedal edema. Neurological: Awake, communicative. LABS AND INVESTIGATIONS: Chest CT scan. Images and report were reviewed showing regression of pulmonary cavity from the past with new nodules, per radiologist he considers this to be an active disease. WBC 15.68, hemoglobin 12.6, platelets 442,000, pH 7.29, pCO2 45 and PO2 is 104 on room air. Microbiology. AFB is pending. ASSESSMENT AND PLAN: A 56-year-old female past medical history as above presented with unconsciousness now being treated for pneumonia, cavitary lung disease that was observed over the years to be excluded in January 2015 and now has variation in the disease pathology on CAT scan with regression of the cavity but variable new pulmonary nodules. PLAN: Agree with antibiotics and current management. Will plan the patient for bronchoscopy and tissue sampling and culture sampling early next week. Thank you for the courtesy of this consult. cc: Todd Simon MD
[2017-02-09 17:11] LABS: CK INDEX 1.2 (0.0-2.5); CK-MB 2.94 ng/mL (0.0-5.0)
--- NOTE | 2017-02-09 18:13 | CONSULTATION ---
DATE OF CONSULTATION: 02/09/2017 CONCLUSION: The patient was admitted to the hospital after vomiting and passing out. She had alcohol and it was felt that this induced that. I have been asked to see the patient because of her pulmonary disease, she has cavitary disease. She tells me that she in the last year has had a skin test for TB which was negative. However, the patient is alcoholic and does abuse drugs, and thus I still think TB is a consideration. Apparently Dr. the pay Dr. Simon has been following the patient and plans to bronchoscope her tomorrow. Besides TB, I think histoplasmosis would be a consideration also. Also one of the nontuberculous mycobacteria could be in the differential diagnosis as well. RECOMMENDATIONS: Many tests have been ordered and bronchoscopy is scheduled for tomorrow with which I agree. I have also ordered antibodies to histoplasmosis and histoplasma antigen. DISCUSSION: The patient states that she is an alcoholic and when she drinks she gets abdominal pain and vomiting, and passes out, which is what happened yesterday. She also tells me that she has episodes of difficulty breathing. She does cough, but has not been bringing up any blood. She has been losing weight. Urinalysis is negative for white cells and bacteria. Blood gases with a pH of 7.29, a PO2 of 104 and a pCO2 of 45. [place] a [place] [address], hemoglobin 12.6, platelet count 442,000, creatinine 0.8. GFR is greater than 60. The AST is 67. The patient had a drug screen that was positive for marijuana. Blood cultures are pending. CT scan of the thorax shows large cavities some of which have regressed and there also are new nodules and cavities that have formed since the last CT of the chest. CT of the head shows chronic ischemic changes. OB-COUNTERSINKER HISTORY: She is a 7, para 4, AB 3. She has had a tubal ligation. REVIEW OF SYSTEMS: Eyes and ears: No hearing or visual deficit. Neck: No stiffness. Respiratory: Patient does cough. She does not cough up blood. She has a chronic dyspnea. Cardiac: No chest pains or palpitation. GI: The patient when she drinks alcohol gets lower abdominal pain. She is not currently having diarrhea and she is not vomiting. Neurologic: The patient did pass out during this admission. She has not had seizures. She does not have unilateral loss of strength or sensation. Endocrine: Patient said she is a borderline diabetic. She does not have thyroid disease. PREVIOUS HOSPITALIZATIONS AND OPERATIONS: She has had labor and deliveries, miscarriages, a tubal ligation, a surgery on her throat for cancer. She has had removal of a brain aneurysm. She has been admitted with alcoholism in the past. MEDICAL DISEASES: Positive for alcoholism, cigarette smoking and drug abuse, including marijuana. She also told me that she is a borderline diabetic. She also appears malnourished. She also has paresthesias and hyperlipidemia. INFECTIOUS DISEASE HISTORY: Negative for pneumonia and UTI. The patient says she had a skin test for TB seven months ago and it was negative. FAMILY HISTORY: Positive for diabetes mellitus, hypertension and cancer. SOCIAL HISTORY[place] She smokes cigarettes, uses marijuana and also is an alcoholic. ALLERGIES: According to the computer, she has no known drug allergies. MEDICATIONS: Taken at home include: Fosamax, Spiriva inhaler, albuterol inhaler, Dulera inhaler, diclofenac, Lumigan, atorvastatin and gabapentin. PHYSICAL EXAMINATION: Vital Signs: Temperature is 98.5 degrees, pulse 70, respirations 14, blood pressure 111/78. General: This is a chronically ill-appearing and malnourished middle-aged female who is in no acute distress. Head, eyes, ears, nose, and throat: She can hear my spoken words and see near objects. The patient is edentulous. No drainage noted from the nose or ears. Neck: No meningismus. Thorax: She has an increased AP diameter of the chest. Lungs: Clear to auscultation. Cardiovascular: Regular heart rate. Abdomen: Soft and nontender. Neurologic: Patient is alert. She can move her extremities. There is no tremor. Her memory as regarding her medical history was diminished. Thank you for the consult. cc: Clemente Montero MD
[2017-02-09] MEDS: NEURONTIN PO SCH (20:56)
[2017-02-09] MEDS: LUMIGAN 0.01% OPH SOLUTION BOTH EYES SCH (20:56)
[2017-02-10 02:07] LABS: CK INDEX 1.2 (0.0-2.5); CK-MB 2.47 ng/mL (0.0-5.0)
[2017-02-10 04:13] LABS: AGAP 11; ALBUMIN 3.9 g/dL (3.5-5.0); ALKALINE PHOSPHATASE 88 U/L (32-104); BUN 11 mg/dL (8-22); CALCIUM 8.1 mg/dL (8.8-10.2); CHLORIDE 104 mmol/L (98-107); COSMO 273; GOT 27 U/L (10-30); GPT 30 U/L (10-36); POTASSIUM 3.9 mmol/L (3.5-5.1); SODIUM 137 mmol/L (136-145); TCO2 22 mmol/L (25-35); TOTAL BILIRUBIN 0.32 mg/dL (0.20-1.00); TOTAL PROTEIN 5.9 g/dL (6.3-8.3)
[2017-02-10] MEDS: D10W 1,000 ML IV SCH (04:55)
--- NOTE | 2017-02-10 05:28 | EKG Report ---
Test Performed on : 02/09/2017 05:51:09 AM Test Reason : unresponsive Blood Pressure : / mmHG Vent. Rate : 054 BPM Atrial Rate : 054 BPM P-R Int : 164 ms QRS Dur : 088 ms QT Int : 480 ms P-R-T Axes : 073 037 054 degrees QTc Int : 455 ms Sinus bradycardia. with sinus arrhythmia. Otherwise normal ECG When compared with ECG of 06-JAN-2016 00:04, QT has lengthened Unconfirmed Result
[2017-02-10] MEDS: DULERA 200 MCG/5 MCG INHALER INH SCH ×2 (07:35→20:20)
[2017-02-10] MEDS: SPIRIVA INH SCH (07:35)
[2017-02-10] MEDS: SODIUM CHLORIDE 0.9% INJ SCH (08:14)
[2017-02-10] MEDS: PROTONIX IV SCH ×2 (08:15→21:03)
[2017-02-10] MEDS: NEURONTIN PO SCH ×2 (08:15→21:03)
[2017-02-10] MEDS ORDERED: THIAMINE 100 MG in NS 50 ML IV SCH (09:00)
[2017-02-10] MEDS ORDERED: M.V.I.-12 10 ML, FOLIC ACID 1 MG, MAGNESIUM SULFATE 1 GM, THIAMINE 100 MG in NS 1,000 ML IV SCH (09:00)
[2017-02-10] MEDS: LOVENOX SUBQ SCH (09:26)
[2017-02-10 10:35] LABS: HEPATITIS PROFILE ACUTE SEE COMMENTS
[2017-02-10 10:36] LABS: HIV ANTIBODY SCREEN SEE COMMENTS
--- NOTE | 2017-02-10 11:27 | PROGRESS NOTE ---
DATE: 02/10/2017 SUBJECTIVE: The patient has no complaints. Main complaint is just she wants to get out of the room. OBJECTIVE: Vital Signs: Blood pressure 113/78, heart rate of 55, respiratory rate of 13, temperature 97.1 degrees, 100% on 2 L. General: A well-developed female in no acute distress. Cardiovascular: Regular rate and rhythm. Pulmonary: Bilateral breath sounds clear to auscultation. GI: Soft, nontender, nondistended. Bowel sounds are positive. Extremities: No clubbing or cyanosis. Lymphatics: No peripheral edema. Neurological: Examination was nonfocal. Laboratory Data: White count, I do not have one today. Her basic looked okay. Phosphorus was a little low at 2.6. Sugars have been up. PROBLEM LIST: 1. Cavitary pneumonia. We are ruling out tuberculosis. I cannot tell that the QuantiFERON, I do not think it has been collected. AFP is still pending. Dr. Carter and Dr. Simon are following. Plan for pulmonary tomorrow. 2. Sepsis. Clinically, she appears to be stable. Blood pressure is stable. She is on vancomycin and Zosyn. We will continue to follow. 3. Encephalopathy, appears to be resolved. May have been drug associated. 4. Hypophosphatemia. We will continue to follow. 5. Elevated liver enzymes, appears to be stable. Continue to monitor. Workup has been thus far negative. DISPOSITION: Pending her TB workup, cavitary pneumonia workup, and resolution, probably at least a couple more days. I think she is stable for the floor. cc: Williams Thompson MD
[2017-02-10] MEDS ORDERED: SODIUM PHOSPHATE 40 MEQ in NS 250 ML IV ONE (12:00)
[2017-02-10] MEDS: VANCOMYCIN 1,100 MG in NS 250 ML IV SCH (13:48)
--- NOTE | 2017-02-10 16:17 | PROGRESS NOTE ---
DATE: 02/10/2017 PRESENT ILLNESS: The patient has a cavitary lung disease, the exact etiology of which is to be determined. MEDICATIONS: Currently the patient is receiving vancomycin as a single agent. PHYSICAL EXAMINATION: Vital Signs: Temperature is 97.8 degrees, pulse 76, respirations 20, blood pressure 112/79. General: This is a chronically ill and malnourished-appearing, middle-aged female. She is in no acute distress. Lungs: There were diminished breath sounds on the right side but both sides were clear. Cardiovascular: Regular heart rate. Abdomen: Soft and nontender. Extremities: I examined the patient's arms. She told me she had a skin test for TB placed but I could not find anywhere on her arms where there was evidence of a prior needle stick or any swelling on her arms. LAB AND X-RAY: There is no new x-ray today. The CBC today shows a white count of 15,680, hemoglobin 12.6, and platelet count of 442,000. Creatinine is 0.9. Sputum gram stain showed gram negative rods and gram positive cocci. ASSESSMENT AND PLAN: The patient is to be bronchoscoped today. We have sent off other tests to test for AFB and fungi, which are also pending. The patient's comorbidities include alcoholism, cigarette smoking, and drug abuse. Patient also is a "borderline diabetic." The patient also appears malnourished. cc: Clemente Montero MD
[2017-02-10] MEDS: LUMIGAN 0.01% OPH SOLUTION BOTH EYES SCH (21:03)
[2017-02-11] MEDS: LOVENOX SUBQ SCH (08:15)
[2017-02-11] MEDS: NEURONTIN PO SCH ×2 (08:16→20:55)
[2017-02-11] MEDS: SODIUM CHLORIDE 0.9% INJ SCH (08:16)
[2017-02-11] MEDS: PROTONIX IV SCH ×2 (08:16→20:55)
[2017-02-11 08:33] LABS: HEMATOCRIT 32.7 % (37.0-47.0); HEMOGLOBIN 11.1 g/dL (12.0-16.0); MCH 30.4 PG (27-31); MCHC 33.9 g/dL (33-37); MCV 89.6 FL (81-99); MPV 9.9 FL (7.4-10.4); RBC 3.65 XMIL (4.2-5.4)
[2017-02-11] MEDS: SPIRIVA INH SCH (08:40)
[2017-02-11] MEDS: DULERA 200 MCG/5 MCG INHALER INH SCH ×2 (08:41→19:48)
[2017-02-11 09:43] LABS: AGAP 12; ALBUMIN 3.3 g/dL (3.5-5.0); ALKALINE PHOSPHATASE 82 U/L (32-104); BUN 6 mg/dL (8-22); CALCIUM 9.2 mg/dL (8.8-10.2); CHLORIDE 107 mmol/L (98-107); COSMO 284; GOT 24 U/L (10-30); GPT 28 U/L (10-36); MAGNESIUM 1.7 mg/dL (1.5-2.7); POTASSIUM 4.1 mmol/L (3.5-5.1); SODIUM 144 mmol/L (136-145); TCO2 25 mmol/L (25-35); TOTAL BILIRUBIN 0.29 mg/dL (0.20-1.00); TOTAL PROTEIN 5.8 g/dL (6.3-8.3)
[2017-02-11 09:51] LABS: HEMOGLOBIN A1C 5.2 % (4.8-6.0)
[2017-02-11] MEDS ORDERED: M.V.I.-12 10 ML, FOLIC ACID 1 MG, MAGNESIUM SULFATE 1 GM, THIAMINE 100 MG in NS 1,000 ML IV SCH (10:00)
[2017-02-11] MEDS ORDERED: XYLOCAINE-MPF 2% ONE (10:38)
[2017-02-11] MEDS ORDERED: FENTANYL ONE (10:39)
[2017-02-11] MEDS ORDERED: DIPRIVAN 1% ONE ×2 (10:40→12:32)
[2017-02-11] MEDS ORDERED: EPINEPHRINE ONE ×2 (11:23→12:50)
[2017-02-11] MEDS ORDERED: XYLOCAINE 1% ONE (11:23)
[2017-02-11] MEDS ORDERED: XYLOCAINE 2% VISCOUS ONE (11:24)
[2017-02-11] MEDS ORDERED: XYLOCAINE 2% ONE (11:24)
[2017-02-11] MEDS ORDERED: SODIUM CHLORIDE 0.9% 20 ML ONE ×2 (11:24→12:50)
[2017-02-11] MEDS ORDERED: VERSED ONE (12:29)
--- NOTE | 2017-02-11 13:17 | OPERATIVE NOTE ---
PROCEDURE DATE: 02/11/2017 REFERRING PHYSICIAN: Dr. Williams Thompson. OPERATION: Bronchoscopy. INDICATION: Cavitary lung disease and pulmonary nodules. AFB negative in January 2017 per medical records. The patient has been observed as outpatient with variation of the disease now. DESCRIPTION OF PROCEDURE IN DETAIL: Consent obtained. Conscious sedation administered via anesthesia and local topical anesthesia of lidocaine applied. The right nostril approached. Normal vocal cord movements. No endobronchial lesions. All major segments visualized and fluoroscopy scanning used for guidance and sampling. We have taken brushings from right upper lobe posterior segment and right upper lobe segment and right lower lobe superior segment. Then we took transbronchial biopsies from the very same segments. There was minimal bleed of a total of less than 50 mL of blood loss that halted with diluted epinephrine spray. Fluoroscopy scanning showed no pneumothorax. An official chest x-ray is also requested. IMPRESSION: 1. 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 2. No endobronchial lesions. PLAN: Awaiting cytology and microbiology, AFB, fungal stain and cultures. cc: Todd Simon MD
[2017-02-11] MEDS: M.V.I.-12 10 ML, FOLIC ACID 1 MG, MAGNESIUM SULFATE 1 GM, THIAMINE 100 MG in NS 1,000 ML IV SCH (14:37)
[2017-02-11] MEDS: CARAFATE LIQUID PO SCH ×2 (14:37→20:55)
[2017-02-11] MEDS: VANCOMYCIN 1,100 MG in NS 250 ML IV SCH (14:37)
[2017-02-11] MEDS ORDERED: TYLENOL PO PRN (14:48)
[2017-02-11] MEDS ORDERED: G.I. COCKTAIL PO ONE (15:45)
[2017-02-11] MEDS: MIRALAX PO SCH (17:15)
--- NOTE | 2017-02-11 18:21 | PROGRESS NOTE ---
DATE: 02/11/2017 PRESENT ILLNESS: The patient is admitted to the hospital with a cavitary lung disease, the exact etiology is to be determined. MEDICATIONS: Patient is on vancomycin as a single agent. PHYSICAL EXAMINATION: Vital Signs: Temperature is 97.6 degrees, pulse 67, respirations 23, blood pressure 136/83. General: This is a chronically ill-appearing, middle-aged female. She seems somewhat malnourished. Lungs: Had diminished breath sounds on the right side but both sides were clear. Cardiovascular: Heart rate is regular. Abdomen: Soft and nontender. Neurologic: Patient is alert and can move all of her extremities. Integument: There is no evidence of induration from a TB skin test on the patient's arms. LAB AND X-RAY: There is no new x-ray today. Laboratory studies came back. The QuantiFERON Gold TP was negative. Antibody to HIV was negative. The hepatitis panel was nonreactive. The bronchoscopy results are pending including the cultures and the pathology. ASSESSMENT AND PLAN: For right now, I am going to stop the patient's isolation. Also I have discontinued vancomycin. COMORBIDITIES: Alcoholism, cigarette smoking, drug abuse, and borderline diabetes. In addition the patient appeared malnourished. cc: Clemente Montero MD
[2017-02-11] MEDS: LUMIGAN 0.01% OPH SOLUTION BOTH EYES SCH (20:54)
[2017-02-11] MEDS: PERICOLACE PO SCH (20:57)
[2017-02-11] MEDS ORDERED: DULCOLAX PR ONE (21:00)
[2017-02-12] MEDS: CARAFATE LIQUID PO SCH ×2 (03:00→08:41)
--- NOTE | 2017-02-12 08:25 | Diag Imaging Result Doc PS360 ---
EXAM: CHEST-1 VIEW INDICATION: SOB TECHNIQUE: One view COMPARISON: 02/09/2017 FINDINGS: The vaguely nodular right upper lobe infiltrate is unchanged. There is no new consolidation identified cardiac silhouette is stable. IMPRESSION: Stable chest. Electronically signed by Linus Gutierrez 02/12/2017 8:23 AM
[2017-02-12] MEDS: MIRALAX PO SCH (08:41)
[2017-02-12] MEDS: PERICOLACE PO SCH (08:41)
[2017-02-12] MEDS: LOVENOX SUBQ SCH (08:42)
[2017-02-12] MEDS: PROTONIX IV SCH (08:42)
[2017-02-12] MEDS: NEURONTIN PO SCH (08:42)
[2017-02-12 08:43] LABS: MANUAL DIFF NEEDED? NO
[2017-02-12 08:52] LABS: BASO% 0.4 % (0.0-0.8); EOS# 0.35 X1000 (0.0-0.7); EOS% 3.8 % (0.0-10.0); HEMATOCRIT 30.5 % (37.0-47.0); HEMOGLOBIN 10.5 g/dL (12.0-16.0); LYMPH# 1.33 X1000 (1.2-3.4); LYMPH% 14.5 % (20.5-51.1); MCH 30.4 PG (27-31); MCHC 34.4 g/dL (33-37); MCV 88.4 FL (81-99); MONO# 0.59 X1000 (0.11-0.59); MONO% 6.4 % (1.7-9.3); MPV 10.3 FL (7.4-10.4); NEUT% 74.9 % (42.2-75.2); PLT 246 X1000 (130-400); RBC 3.45 XMIL (4.2-5.4)
[2017-02-12 09:14] LABS: AGAP 12; ALBUMIN 3.5 g/dL (3.5-5.0); ALKALINE PHOSPHATASE 87 U/L (32-104); BUN 6 mg/dL (8-22); CALCIUM 9.2 mg/dL (8.8-10.2); CHLORIDE 102 mmol/L (98-107); COSMO 277; GOT 17 U/L (10-30); GPT 24 U/L (10-36); IRON SATURATION 11 %; MAGNESIUM 1.6 mg/dL (1.5-2.7); POTASSIUM 3.6 mmol/L (3.5-5.1); SODIUM 140 mmol/L (136-145); TCO2 26 mmol/L (25-35); TIBC 219 ug/dL; TOTAL BILIRUBIN 0.55 mg/dL (0.20-1.00); TOTAL IRON 24 ug/dL (49-151); TOTAL PROTEIN 6.3 g/dL (6.3-8.3); UNBOUND IRON 195 ug/dL (112-346)
[2017-02-12] MEDS: M.V.I.-12 10 ML, FOLIC ACID 1 MG, MAGNESIUM SULFATE 1 GM, THIAMINE 100 MG in NS 1,000 ML IV SCH (10:35)
[2017-02-12] MEDS: SPIRIVA INH SCH (11:52)
[2017-02-12] MEDS: DULERA 200 MCG/5 MCG INHALER INH SCH (11:53)
[2017-02-12 12:02] VITALS: BP 122/82
[2017-02-12 13:31] LABS: COCCIDIOIDES AB SCREEN SERUM SEE COMMENTS
--- NOTE | 2017-02-13 05:55 | DISCHARGE SUMMARY ---
ADMISSION DATE: 02/09/2017 DISCHARGE DATE: 02/12/2017 CONSULTATIONS: 1. Dr. Simon of Pulmonology. 2. Dr. Clemente Montero with Infectious Disease. PROCEDURES: 1. Head CT showed chronic ischemic changes. No evidence of acute disease. 2. Chest CT showed waxing and waning granulomatous lesions while the large cavitary lesions have largely regressed. There are clearly some new nodules in cavities indicating active disease. 3. Abdominal ultrasound showed no definite abnormality. Chest x-ray showed stable chest. 4. Bronchoscopy performed by Dr. Simon showed cavitary and nodular lung disease, likely histoplasma or atypical mycobacteria. No endobronchial lesions. DISCHARGE DIAGNOSES: 1. Cavitary pneumonia to be ruled out, status post bronchoscopy by Dr. Simon that showed cavitary nodular lung disease likely histoplasma or atypical mycobacteria. No endobronchial lesions, exact etiology is to be determined. Specimens are still pending. The patient was taken off isolation and her antibiotics have been discontinued. She will follow up with Dr. Simon as well as Dr. Clemente Montero after discharge. 2. Sepsis resolved. 3. Encephalopathy resolved. 4. Hypophosphatemia anemia improved. 5. Elevated liver enzymes stable. HOSPITAL COURSE: Ms. Mo is a 52-year-old female with a history of COPD, hyperlipidemia, anemia, throat cancer, history of brain aneurysm who was found minimally responsive by her boyfriend on the morning of her admission. Also, very cool to the touch. She was brought to the ER where she had 2 witnessed seizures and was hypothermic with a rectal temperature of 93 degrees. There is significant history of alcohol and drug dependence. Her boyfriend reports she is a daily drinker. The patient herself only reports that she drank the night before her admission for the first time in a few months. Her alcohol level on the day of her admission was 91. Head CT was performed that did not show anything acute. Chest x-ray was suggestive of reactivation of mycobacteria or other granulomatosis disease. A CT of the chest with contrast revealed wax and waning granulomatosis disease. There were cavitary lesions that had largely regressed and some new nodules in the cavities indicating active disease. Unclear exactly what those represent. However, she does report that she has been tested for TB in the past and it was negative. We did have negative TB results from 2014. Patient was complaining of abdominal pain and nausea. Patient was admitted to the ICU under isolation until a further assessment on her pulmonary status could be established. She was admitted for toxic metabolic encephalopathy likely from illicit substance and alcohol related. She was started on broad-spectrum antibiotics for her sepsis. Multiple Infectious Disease studies were ordered. Pulmonology Infectious Disease was consulted as well as a PPD. The patient underwent a bronchoscopy by Dr. Simon that showed cavitary nodular lung disease, likely histoplasma and atypical mycobacteria. No endobronchial lesions were found. Her QuantiFERON gold TB was negative antibody and HIV was negative. Her hepatitis panel was nonreactive. Pathology of her bronch are still pending. Her isolation was stopped. Her vancomycin was discontinued. She will follow up with Dr. Simon and Dr. Montero for further follow up. VITAL SIGNS: Her vital signs at the time of discharge, temperature 98.8 degrees, heart rate 67, respirations 22, blood pressure 122/82, and O2 is 100% on room air. DISCHARGE DIET: Diabetic. DISCHARGE MEDICATIONS: 1. ProAir inhaler 8.5 g inhaled q.4-6 hours p.r.n. 2. Fosamax 70 mg p.o. as directed. 3. Atorvastatin calcium 10 mg p.o. at bedtime. 4. 1 drop both eyes at bedtime. 5. Gabapentin 3 mg p.o. b.i.d. 6. Dulera 200 mcg 5 mcg inhaler 2 puffs inhaled b.i.d. 7. Spiriva 2 puffs inhaled daily. FOLLOWUP: Ms. Mo is being discharged back home. She will follow up with Dr. Simon and Dr. Clemente Montero. She will return to the ED for any worsening of symptoms DISCHARGE TIME: 30 minutes. Dictated by ANA Chavez for Adelso Goncalves MD cc: Adelso Goncalves MD
== END 2017-02-12 13:10 | disposition home or self-care (01) ==
LOC: ED 05:56 → ICU 09:27 → SUATTDRO 09:27
PROVIDERS: ATTEND Internal Medicine

== ENCOUNTER 2018-07-09 11:54 | Inpatient (IN) ==
[2018-07-09] MEDS ORDERED: NS 1,000 ML IV ONE ×2 (12:33→16:13)
[2018-07-09 13:55] LABS: BASO# 0.01 X1000 (0.0-0.2); BASO% 0.1 % (0.0-0.8); EOS# 0.03 X1000 (0.0-0.7); EOS% 0.4 % (0.0-10.0); HEMATOCRIT 37.9 % (37.0-47.0); HEMOGLOBIN 12.1 g/dL (12.0-16.0); LYMPH# 0.76 X1000 (1.2-3.4); LYMPH% 10.3 % (20.5-51.1); MCH 26.5 PG (27-31); MCHC 31.9 g/dL (33-37); MCV 82.9 FL (81-99); MONO# 0.32 X1000 (0.11-0.59); MONO% 4.3 % (1.7-9.3); MPV 9.1 FL (7.4-10.4); NEUT# 6.24 X1000 (1.4-6.5); NEUT% 84.9 % (42.2-75.2); PLT 470 X1000 (130-400); RBC 4.57 XMIL (4.2-5.4); RDW 14.3 % (11.5-14.5); WBC 7.36 X1000 (4.8-10.8)
--- NOTE | 2018-07-09 14:01 | EKG Report ---
Test Performed on : 07/09/2018 12:08:30 PM Test Reason : ED. NO ORDER FOR MUSE Blood Pressure : / mmHG Vent. Rate : 082 BPM Atrial Rate : 082 BPM P-R Int : 162 ms QRS Dur : 074 ms QT Int : 360 ms P-R-T Axes : 075 041 059 degrees QTc Int : 420 ms Normal sinus rhythm. Possible Left atrial enlargement Borderline ECG When compared with ECG of 23-DEC-2017 16:39, (Unconfirmed) No significant change was found Unconfirmed Result
[2018-07-09 14:03] LABS: INR 0.92; PROTIME 13.1 Seconds (11.0-16.0)
[2018-07-09 14:04] LABS: PTT 35.5 Seconds (22.3-41.8)
[2018-07-09 14:16] LABS: AGAP 16; ALBUMIN 3.9 g/dL (3.5-5.0); ALKALINE PHOSPHATASE 153 U/L (32-104); BUN 10 mg/dL (8-22); CALCIUM 9.7 mg/dL (8.8-10.2); CHLORIDE 95 mmol/L (98-107); COSMO 272; CREATININE 0.7 mg/dL (0.5-0.9); ESTIMATED GFR > 60; GLUCOSE 79 mg/dL (70-104); GOT 9 U/L (10-30); GPT 5 U/L (10-36); POTASSIUM 4.4 mmol/L (3.5-5.1); SODIUM 137 mmol/L (136-145); TCO2 26 mmol/L (25-35); TOTAL BILIRUBIN 0.33 mg/dL (0.20-1.00); TOTAL PROTEIN 7.9 g/dL (6.3-8.3)
[2018-07-09] MEDS ORDERED: PROTONIX IV ONE (14:40)
[2018-07-09] MEDS: SODIUM CHLORIDE 0.9% INJ ONE (15:10)
[2018-07-09] MEDS ORDERED: SODIUM CHLORIDE 0.9% INJ ONE (16:09)
[2018-07-09] MEDS ORDERED: VENTOLIN HFA INH PRN (16:13)
--- NOTE | 2018-07-09 16:22 | Diag Imaging Result Doc PS360 ---
EXAM: FLAT/UPRIGHT ABD/1 VIEW CHEST HISTORY: abd pain, chest pain TECHNIQUE: Flat and upright with chest, three views COMPARISON: 12/23/2017 FINDINGS: There is a masslike density in the upper right lung. Scarring or a small infiltrate is found in the medial right base. The left lung is well expanded and clear. No cardiomegaly. No free air beneath the diaphragm. No bowel obstruction. No organomegaly. No abnormal abdominal calcifications. IMPRESSION: No acute abdominal abnormality. Mass or consolidation in the upper right lung. Electronically signed by Fawad Lemos 07/09/2018 4:19 PM
--- NOTE | 2018-07-09 17:35 | PROVIDER DOCUMENTATION ---
This chart was entered by Arabella Howard Scribe, acting as scribe for Armin Hong MD. HPI-Abdominal Pain/GI Problem - General Chief Complaint: Nausea/Vomiting Stated Complaint: ADB PAIN,CANT BREATHE Time Seen by Provider: 07/09/18 12:27 Source: patient, family Allergies/Adverse Reactions: Patient Allergies Allergy/AdvReac Type Severity Reaction Status Date / Time No Known Allergies Allergy Verified 07/09/18 13:40 Home Medications: Home Medication List Medication Instructions Recorded Confirmed Last Taken Type Atorvastatin Calcium 20 mg PO DAILY 02/09/17 05/04/18 05/02/18 History Gabapentin 300 mg PO BID 02/09/17 04/29/18 05/02/18 09:00 History Albuterol Sulfate [Proair Hfa] 2 puff INH PRN PRN 04/16/18 05/04/18 05/03/18 09: 00 History Latanoprostene Bunod [Vyzulta] 1 drop BOTH EYES QHS 04/16/18 05/04/18 04/16/18 22:00 History Mometasone/Formoterol [Dulera 200 2 puff INH DAILY 04/16/18 04/29/18 05/02/18 09 :00 History Mcg/5 Mcg Inhaler] Omeprazole 40 mg PO DAILY 04/16/18 04/29/18 05/02/18 09:00 History Sucralfate [Carafate] 1 gm PO 4XDAY #120 tab 04/17/18 05/04/18 05/02/18 09:00 Rx Levofloxacin [Levaquin] 500 mg PO DAILY #10 tab 05/04/18 Unknown Rx Metronidazole [Flagyl] 250 mg PO TID #30 tab 05/04/18 Unknown Rx - History of Present Illness-ABD Nature of Presenting Problems: 57 yobf presents to the ed with c/o epigastric pain with vomiting bright red blood with weight loss. pt has hx of throat cancer 9 years prior. pt looks to not feel well on exam Abdominal Pain Onset Location: reports: epigastric Quality of Pain: reports: aching, cramping Severity in ED: reports: moderate Onset/Duration: reports: 3 days ago Timing: reports: still present Activities at Onset: reports: light activity Exposure to sick contacts?: No Modifying Factors: improves with: nothing. worse with: eating Associated Symptoms: reports: constipation, nausea, vomiting (bright red blood) . denies: back/neck pain, chest pain, diarrhea, fatigue, headaches, shortness of breath, weakness, trouble walking Last BM: last night Dark Stools Present?: reports: none noticed Rectal Bleeding: reports: none # of Diarrhea Episodes: 0 Rectal Pain: reports: none # of Vomiting Episodes: 4 Emesis Description: reports: red blood Bruising or Bleeding Gums?: No Similar Symptoms Previously?: Yes (has seen dr vega in the past) Recently seen or treated by another doctor?: No Review of Systems - Adult - REVIEW OF SYSTEMS - ADULT Constitutional: reports: see HPI, weight loss. denies: chills, fever Eyes: reports: no symptoms reported Ears, Nose, Mouth & Throat: reports: no symptoms reported Cardiovascular: denies: chest pain, palpitations Respiratory: denies: cough, shortness of breath, wheezing Gastrointestinal: reports: see HPI, abdominal pain, hematemesis, constipation, nausea, poor appetite. denies: diarrhea, vomiting Genitourinary: reports: no symptoms reported Musculoskeletal: denies: back pain, neck pain Integumentary: reports: no symptoms reported Neurological: denies: dizziness/vertigo, headache/migraines Psychiatric: reports: no symptoms reported Endocrine: reports: no symptoms reported Hematologic/Lymphatic: reports: no symptoms reported Allergic/Immunologic: reports: no symptoms reported All Other Systems: Reviewed and Negative Past History - Adult - PAST MEDICAL HISTORY-ADULT Review of Records: reports: Old Records Reviewed, Nursing Assessment Review, Medications Reviewed, Social history reviewed & non-contributory. Major Childhood Illnesses: reports: denies history Cardiovascular: reports: hyperlipidemia Respiratory: reports: COPD Gastrointestinal: reports: cancer, GERD, GI bleed Obstetrical/Gynecological: reports: denies history Genitourinary: reports: denies history Musculoskeletal: reports: denies history Neurological: reports: Seizures/Epilepsy Psychiatric: reports: denies history Endocrine/Immune: reports: anemia, Diabetes Other Conditions: reports: other cancer (throat), other (tongue/throat cancer) - PRIOR SURGERIES/PROCEDURES Surgical/Procedure History: reports: BTL, other (tumor removed in throat) - IMMUNIZATION STATUS Childhood Immunizations: See Nurse Assessment Flu Vaccine: See Nurse Assessment - FAMILY HISTORY Family History: reviewed, not pertinent - SOCIAL HISTORY Smoking: cigarettes, greater than 1 pack/day Provider spent 3-5 mins advising pt. on dangers of tobacco.: Discussed manners to quit use, and f/u contacts for add'l counseling. Substance Use: none presently/history of abuse Alcohol Use Frequency: sober (former use) Living Situation: family Physical Exam-General - PHYSICAL EXAM-ADULT Initial Vital Signs Reviewed: Yes - CONSTITUTIONAL General Appearance: alert, thin. negative: appears well - EYES Eyes: PERRL/EOMI, pale conjunctivae - HEAD, EARS, NOSE, MOUTH & THROAT HENMT: negative: moist mucous membranes - NECK Neck: full range of motion, normal inspection - RESPIRATORY Respiratory: chest non-tender, lungs clear, normal breath sounds - CARDIOVASCULAR Cardiovascular: normal peripheral pulses, regular rate, rhythm - GASTROINTESTINAL (ABDOMEN) Abdominal Exam: normal bowel sounds, soft, guarding, tenderness (epigastric). negative: distended, rigid, rebound - GENITOURINARY Female Genitalia/Pelvic Exam: deferred Rectal Exam: normal exam, normal rectal tone Hemoccult Exam: heme negative stool - LYMPHATIC Lymphatic: no adenopathy - MUSCULOSKELETAL Back Exam: normal inspection, no CVA tenderness, no vertebral tenderness Extremity: normal range of motion, non-tender, no calf tenderness, normal capillary refill - SKIN Integumentary: warm/dry, pallor - NEUROLOGIC Neurologic: grossly normal, no motor/sensory deficits - PSYCHIATRIC Psych/Mental Status: normal mood/affect, normal thought content, normal thought process, oriented x 3 Progress - PLAN OF CARE/RESULTS Progress/Plan/Lab Results: Vital Signs - 8 hr 07/09/18 11:59 Temperature 98.7 F Pulse Rate 86 Respiratory Rate 18 Blood Pressure 102/79 O2 Sat by Pulse Oximetry 100 Result Diagrams: 07/09/18 13:30 07/09/18 13:30 - REASSESSMENT Reassessment #1 Time Reassessed: 13:18 (no vomiting seen since being in ed and dr hong at bedside speaking with pt ) Status: improving Reassessment #2 Time Reassessed: 14:38 Status: unchanged Reassessment Comment: pt is resting in bed Reassessment #3 Time Reassessed: 14:48 (dr hong was at bedside and discussing poc with pt and family) Status: unchanged - EKG 1 Time of EKG reading by physician:: 12:22 EKG Read and Signed by:: Armin Hong EKG Interpretation (*Must complete 3 of following elements*): Normal (borderline ) Rate: 82 Rhythm: nsr Rawlings: normal QRS: normal [place] Interval: normal ST Wave: normal Comments: possible left atrial enlargement - CONSULTS/PCP/HOSPITALIST Notification #1 *Consult/PCP/Hospitalist*: dr gary SOUZA Time Discussed: 14:39 (wants hospitalist to admit) Reason/Comments: phone consult will consult #2 Consult: hospitalist dr estrada Time Discussed: 14:46 Reason/Comments: vomiting blood Consult Disposition: Admit Departure - Departure Date of Disposition Decision: 07/09/18 Time of Disposition Decision: 14:47 DIAGNOSIS: Tobacco abuse, Acute epigastric pain Hematemesis Qualifiers: Nausea presence: with nausea Qualified Code(s): K92.0 - Hematemesis Disposition: ADMITTED INPATIENT 09 Certified Medical Emergency: Emergent Condition: Stable Referrals and Follow-Ups: Salma Gipson CRNP [Primary Care Provider] - - Critical Care Note This patient required my direct & personal management of CC.: Yes Total Time (mins): 33 Critical Care Statement: This patient required my direct personal management to treat or rule out processes, the absence of which, could potentiallly result in sudden, clinically significant life or limb threatening deterioration. Attestation - Physician/ IAN Attestation Patient care was provided by Advanced Practice Provider:: No The physician spent face to face time with patient:: Yes Advanced Practice Provider documentation review:: Supervising physician onsite and consulted in the evaluation and care of this patient. The physician did have a face to face encounter with the patient. This chart was documented by the indicated scribe, (Arabella Howard Scribe) and accurately reflects the services I performed and decisions made by me, Armin Hong MD, as attested by the provider's signature.
[2018-07-09] MEDS: NICODERM PATCH TD SCH (18:15)
--- NOTE | 2018-07-09 20:02 | HISTORY AND PHYSICAL ---
SENIOR CORPORATE ACCOUNTANT: Dr. Denise Keith. PRIMARY CARE PHYSICIAN: ANA Shen. CHIEF COMPLAINT: Abdominal pain, nausea and vomiting. HISTORY OF PRESENT ILLNESS: Ms. Mo is a 57-year-old female with a history of COPD, hyperlipidemia, nicotine dependence, prediabetes, iron-deficiency anemia and chronic abdominal pain who presents with abdominal pain, nausea and vomiting since . She reports since that time she has had epigastric and right upper quadrant pain associated with nausea and vomiting almost any time she tries to eat. She is able to hold down medications when she tries, but for the most part she throws up every time she eats or drinks. She reports epigastric discomfort and a frequent urge to belch but inability to do so. Over the past few days she has also reported throwing up blood. She came to the ER today for evaluation. In the ER, labs were done, and they were noted to be unremarkable. Her vital signs were stable; however, the ER doctor spoke with , who recommended admission. She does report some midsternal discomfort, but mainly when she is trying to swallow or take a deep breath. She denies any fever. No diarrhea. She does have constipation. No lower extremity edema. No orthopnea. We are going to admit her for observation status. PAST MEDICAL HISTORY: 1. COPD. 2. Nicotine dependence. 3. Gastroesophageal reflux disease. 4. History of cavitary pneumonia status post bronchoscopy in 2017. 5. History of polysubstance dependence. 6. History of alcohol dependence. 7. Hyperlipidemia. 8. History of esophageal cancer. 9. Sleep apnea. 10.Anemia, chronic. 11.History of brain aneurysm. PAST SURGICAL HISTORY: 1. Bilateral tubal ligation. 2. Esophageal tumor excision. 3. Brain aneurysm repair. 4. EGD. 5. Colonoscopy. SOCIAL HISTORY: Smokes a half a pack to a pack a day. She denies current drug or alcohol use but does have a history of such. Boyfriend is at the bedside ALLERGIES: No known drug allergies. HOME MEDICATIONS: Yet to be compiled. REVIEW OF SYSTEMS: A 14-point review of systems was obtained and found to be negative with the exception of the HPI. PHYSICAL EXAMINATION: VITAL SIGNS: Blood pressure 102/79, heart rate 56, respiratory rate 18, O2 saturation 100% on room air, temperature 97.7. GENERAL: This is a chronically ill-appearing 57-year-old female lying in the hospital bed in no acute distress. NEUROLOGIC: Awake, alert and oriented. Follows commands. No focal deficits. HEENT: Head is atraumatic, normocephalic. Pupils equal, round, and reactive to light. Oral mucosa is a bit dry. NECK: Trachea is midline. There is no JVD. CHEST: Diminished at the bases but clear to auscultation. CV: Regular rate and rhythm. S1 and S2 noted. There are no murmurs. GI: Diffuse tenderness mainly in the epigastric region. No rigidity. Abdomen is soft. Bowel sounds are hypoactive. EXTREMITIES: Without edema,clubbing or cyanosis. Pulses are 1+ bilaterally. DIAGNOSTIC DATA: Chest and abdomen x-rays pending. LABORATORY DATA: WBCs 7.36, hemoglobin 12.1, hematocrit 37.9, platelet count 470. INR 0.92. Chemistry is unremarkable with the exception of an alkaline phosphatase of 153. ASSESSMENT/PLAN: 1. Unspecified abdominal pain: Likely multifactorial, possibly acid reflux or ulcer disease. We will continue with IV fluids, keep her n.p.o., add a proton pump inhibitor intravenously, and consult . Check a flat and upright with chest x-ray. 2. Chronic obstructive pulmonary disease. Continue breathing treatments. Check a chest x-ray. There is no indication of chronic obstructive pulmonary disease exacerbation or pneumonia. 3. Nicotine dependence. We have advised the patient to quit smoking or wear a nicotine patch. Continue cessation education. 4. History of throat cancer. Aware. 5. History of brain aneurysm. Aware. 6. Deep venous thrombosis prophylaxis with sequential compression devices. 7. Further recommendations to follow. Dictated by ANA Peacock for Rhiannon Mars MD cc: ANA Peacock MD
[2018-07-09] MEDS ORDERED: BLISTEX MEDICATED BERRY LIP BALM TOP PRN (20:05)
[2018-07-10] MEDS: PROTONIX IV SCH ×2 (04:20→14:09)
[2018-07-10] MEDS: MORPHINE IV PRN ×4 (04:29→21:55)
[2018-07-10 06:21] LABS: AGAP 17; BUN 12 mg/dL (8-22); CALCIUM 8.3 mg/dL (8.8-10.2); CHLORIDE 99 mmol/L (98-107); COSMO 266; CREATININE 0.7 mg/dL (0.5-0.9); ESTIMATED GFR > 60; GLUCOSE 62 mg/dL (70-104); MAGNESIUM 1.7 mg/dL (1.5-2.7); POTASSIUM 4.1 mmol/L (3.5-5.1); SODIUM 134 mmol/L (136-145); TCO2 18 mmol/L (25-35)
[2018-07-10 06:23] LABS: BASO# 0.02 X1000 (0.0-0.2); BASO% 0.3 % (0.0-0.8); EOS# 0.09 X1000 (0.0-0.7); EOS% 1.2 % (0.0-10.0); HEMATOCRIT 30.4 % (37.0-47.0); HEMOGLOBIN 9.9 g/dL (12.0-16.0); LYMPH# 0.89 X1000 (1.2-3.4); LYMPH% 12.3 % (20.5-51.1); MCH 27.2 PG (27-31); MCHC 32.6 g/dL (33-37); MCV 83.5 FL (81-99); MONO# 0.51 X1000 (0.11-0.59); MONO% 7.1 % (1.7-9.3); NEUT% 79.1 % (42.2-75.2); PLT 395 X1000 (130-400); RBC 3.64 XMIL (4.2-5.4); RDW 14.1 % (11.5-14.5); WBC 7.21 X1000 (4.8-10.8)
--- NOTE | 2018-07-10 06:45 | CONSULTATION ---
DATE OF CONSULTATION: 07/09/2018 PRIMARY HOSPITALIST: Rhiannon Mars M.D. PRIMARY CARE PHYSICIAN: Quinton Hamilton M.D./ANA Shen. INDICATION FOR CONSULTATION: 1. Nausea with vomiting. 2. Right upper quadrant abdominal pain. 3. Ongoing weight loss. HISTORY OF PRESENT ILLNESS: The patient is a 57-year-old female who has been followed in our clinic for the last several years. Over the last year and a half, she has had progressive epigastric pain and right upper quadrant pain. She has undergone EGD and colonoscopy for further evaluation. In April of 2018, she underwent an EGD for further evaluation of dysphagia, epigastric pain, weight loss, and iron deficiency anemia. She was found to have postsurgical changes in the hypopharynx consistent with throat cancer, left oropharyngeal nodule of unknown significance, increased resistance at the upper esophageal sphincter consistent with cricopharyngeal achalasia, a Schatzki's ring at the lower esophageal sphincter, hiatal hernia, gastritis and duodenitis. At the time of the procedure, we were able to successfully dilate her esophagus using a 54-[place] Savary dilator. Because the EGD did not explain her ongoing weight loss, she underwent a colonoscopy that revealed gomez colitis with ileitis, left- sided diverticulosis, proctitis, rectal polyp, and external hemorrhoids. The colitis was mild and responded to antibiotic therapy. She also underwent a HIDA scan with abdominal ultrasound which was unremarkable. Her HIDA scan was normal. Because she continued to have abdominal pain, she underwent a CT scan of the abdomen and pelvis on 06/09/2018. It revealed a new opacity in the right lower lobe. There was no evidence of acute GI pathology. Dr. Hamilton's office was contacted and she was sent to Dr. Hamilton for further evaluation. The patient states that she had multiple tests performed, but is unaware of the test results. She states that for the last 4 days, she has had progressive epigastric pain that radiates into the right upper quadrant associated with vomiting. Today, she notes bright red blood mixed in with the emesis, which is new and different. She presented to the emergency room for further evaluation. She states that she has been unable to eat solid food for the last 4 days. She also reports that she is able to tolerate her medications but is not tolerating liquids or solid food. Although her labs in the emergency room were unremarkable, her abdominal exam is remarkable for significant increase in abdominal tenderness. She is admitted for further evaluation. PAST MEDICAL HISTORY: 1. COPD. 2. Nicotine dependence. 3. GERD. 4. Cavitary pneumonia in 2017, status post bronchoscopy. 5. Polysubstance abuse. 6. History of alcohol dependence. 7. Hyperlipidemia. 8. History of oropharyngeal cancer. 9. Sleep apnea. 10. Anemia of chronic disease. 11. Iron deficiency anemia. 12. History of brain aneurysm. 13. GI history as noted above including Schatzki's ring. 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 15. Hiatal hernia. 16. Gastritis. 17. Duodenitis. 18. Ileocolitis in April of 2018. 19. Diverticulosis. 20. Hemorrhoids. PAST SURGICAL HISTORY: 1. Bilateral tubal ligation. 2. Tumor excision. 3. Brain aneurysm. 4. EGD. 5. Colonoscopy. SOCIAL HISTORY: The patient smokes 1/2 to 1 pack of cigarettes per day. The patient states that she is not currently drinking alcohol, but has historically consumed 6 to 12 beers per day. She denies recreational drug use although there have been reports of recreational drug use in the past according to her medical history. MEDICATION ALLERGIES: None. HOME MEDICATIONS: 1. ProAir. 2. Atorvastatin. 3. Gabapentin. 4. Latanoprostene eyedrops. 5. Dulera. 6. Omeprazole. REVIEW OF SYSTEMS: Remarkable for nausea, vomiting, abdominal pain, and hematemesis. She reports that her bowels have been regular. She states that she was evaluated by ENT and there has been no evidence of her oropharyngeal malignancy. She states that Dr. Hamilton has ordered several pulmonary tests, but she is unaware of the test results. PHYSICAL EXAMINATION: Vital Signs: Her blood pressure is 117/73, pulse of 81 respirations 16, and temperature of 98.5 degrees. HEENT: Negative for jaundice. Her oropharyngeal mucosal membranes are dry. Pulmonary: Lungs are clear to auscultation with normal respiratory effort. Cardiovascular: Reveals regular rate and rhythm with no murmurs, gallops, or rubs. Abdomen: Soft, but diffusely tender. She has voluntary guarding but no rebound. Extremities: Negative for cyanosis, clubbing, or edema. DIAGNOSTIC: Objective data reveals a hemoglobin of 12.1 with hematocrit of 37.9 and white count of 7.36. She has 470,000 platelets. Her PT is 13.1 with an INR 0.92 and a PTT of 35.5. Sodium is 137, potassium 4.4, chloride 95, CO2 26, BUN 10, creatinine 0.7 with a glucose of 79. Calcium is 9.7, total bilirubin 0.33, AST 9, ALT 5, alkaline phosphatase 153, total protein 7.9, and albumin 3.9. IMPRESSION: 1. Nausea with vomiting. 2. Hematemesis. 3. Right lung mass on CT scan and chest x-ray. 4. Weight loss. 5. Recent history of noninfective enterocolitis with elevated calprotectin and lactoferrin. Her inflammatory bowel disease profile was consistent with Crohn's disease. RECOMMENDATIONS: 1. The patient has a history of oropharyngeal malignancy, and has a new right lung mass. I recommend that we obtain a chest, abdomen and pelvis CT. 2. With regard to the nausea with vomiting, her evaluation to date has been unremarkable. However, the hematemesis is new. If the CT scan is unremarkable, it would be reasonable to consider an EGD for further evaluation. 3. Please repeat her CBC in the morning to assess for interval change with hydration. 4. Continue Protonix 40 mg IV q.12 hours. 5. I will contact ENT to obtain the results of their evaluation given that her symptoms sound more consistent with hemoptysis as opposed to hematemesis. She describes streaks of pinkish red blood in her emesis, but not mixed in her food. 6. Her abdomen is significantly more tender today than it has been on previous exams. From a GI perspective, I would continue Protonix 40 mg IV and IV hydration. 7. Because she has a right lung mass on CT scan in May as well as chest x- ray today, I will obtain a chest, abdomen, and pelvis CT tonight. Her ongoing weight loss is very concerning for malignancy especially in a patient with a history of tobacco use, throat cancer and a family history of GI malignancies. 8. If the CT scan is unremarkable, I will consider an EGD tomorrow. Therefore, I will have her remain NPO after midnight, but she may have clear liquids after the CT scan. 9. Please monitor serial hemoglobin and hematocrit, and assess for interval change. 10. Additional recommendations to follow based on her clinical course. 11. I will try to obtain the results of her ENT evaluation given that she had a possible nodule in her hypopharynx on her most recent EGD. 12. Additional recommendations to follow based on the results of her CT scan. cc: MD Rhiannon Ayala MD Johnna Langford, CRNP Joel Powell, MD [facility] HOSPITALValeria
--- NOTE | 2018-07-10 06:57 | Diag Imaging Result Doc PS360 ---
CT THORAX/ABD/PELVIS W/CON - 07/09/2018 INDICATION: hematemesis, abd pain, lung mass on CXR COMPARISON: 06/09/2018, 12/23/2017 FINDINGS: CHEST: There is advanced COPD. There are some mildly enlarged carinal nodes. Stable mild dilation of the ascending aorta measuring about 3.5 cm. There is coalescent cavitation of the superior segment of the right lower lobe. On the prior chest CT this was involved with a similar process. However this has dramatically increased since prior. There are other small cavitary nodules throughout the right lower lobe and right middle lobe. The left lung is clear. The airways are all clear. Abdomen pelvis: The liver, gallbladder, spleen, pancreas, adrenals, and kidneys are normal. There is mild diverticulosis of the colon. No bowel obstruction or inflammation. Normal appendix. Urinary bladder and rectum are normal. There are moderate degenerative changes of the spine. No acute or suspicious bony lesion. IMPRESSION: 1. Slowly progressive, chronic cavitary consolidation or mass in the superior segment of the right lower lobe. Worsening diffuse nodular densities throughout the right lung base, also largely cavitary. Likely represents a chronic infectious process. Consider tuberculosis, histoplasmosis, or atypical mycobacteria. Infectious disease consultation recommended. 2. Diverticulosis coli. No acute process in the abdomen or pelvis. This exam was performed using automated exposure control, adjustment of mA or kV according to patient size, and/or use of iterative reconstruction technique Electronically signed by Quinton Lange 07/10/2018 6:55 AM
[2018-07-10] MEDS ORDERED: MAGNESIUM SULFATE 2 GM/S.W.I. 2 GM/50 ML IVPB IV ONE (08:28)
[2018-07-10] MEDS: NICODERM PATCH TD SCH (09:18)
[2018-07-10] MEDS: NS 1,000 ML IV SCH (10:30)
[2018-07-10] MEDS: DUONEB (A & A) INH SCH ×3 (11:00→21:41)
[2018-07-10] MEDS ORDERED: TUBERSOL ID ONE (12:45)
[2018-07-10] MEDS ORDERED: VANCOMYCIN IV PER PHARMACY MISC SCH (13:30)
[2018-07-10] MEDS: MAXIPIME 2 GM in NS 100 ML IV SCH (14:55)
[2018-07-10] MEDS ORDERED: VANCOMYCIN 1,400 MG in NS 250 ML IV ONE (15:00)
[2018-07-10] MEDS ORDERED: ATIVAN IV PRN (18:00)
--- NOTE | 2018-07-10 19:59 | PROGRESS NOTE ---
DATE: 07/10/2018 SUBJECTIVE: The patient is resting comfortably in bed. No acute events noted overnight. She states that she has not had a bowel movement in several days and she has been having some abdominal pain. OBJECTIVE: Vital Signs: Temperature 98.3 degrees, blood pressure 103/71, heart rate 73, respirations 18, O2 saturation 98% on room air. General: This is a chronically ill-appearing elderly female lying in bed in no acute distress. Head: Normocephalic, atraumatic. Heart: S1, S2 normal. Regular rate and rhythm. Lungs: Equal air entry bilaterally. No wheezing, no rales. Abdomen: Positive bowel sounds. Soft, diffuse tenderness. Extremities: No edema, no cyanosis, no calf tenderness. Neuro: The patient is alert and oriented x3. LABS: White blood cell count 7.2, hemoglobin 9.9, hematocrit 30, platelets 395,000, sodium 134, potassium 4.1, chloride 99, CO2 18, BUN 12, creatinine 0.7, glucose 62, magnesium 1.7. ASSESSMENT AND PLAN: 1. Right lower lobe cavitary lesion with multiple nodules. The patient has been seen by ID and pulmonary, the lung biopsy is planned for next week, also infectious etiologies are being ruled out. In the meantime, the patient is on empiric antibiotic therapy and is on TB isolation pending the results. 2. Constipation. The patient will be started on scheduled laxative therapy and GI soft diet. 3. Tobacco dependence. The patient has been counseled about smoking cessation. 4. Hypomagnesemia. Will replace the patient's magnesium. 5. Alcohol abuse. Will start the patient on Ativan and monitor closely for withdrawal. 6. Gastrointestinal prophylaxis. Continue on Protonix. 7. Deep vein thrombosis prophylaxis. Continue on Lovenox. cc: Rhiannon Mars MD
--- NOTE | 2018-07-10 20:23 | INFECTIOUS DISEASE CONSULT REP ---
DATE: 07/10/2018 CONCLUSION: The patient has a progressive cavitary lung disease. I think it is possible that she has a mycobacterial infection such as Mycobacterium avium complex or TB or a fungal pulmonary infection such as histoplasmosis or chronic Aspergillus infection. RECOMMENDATIONS: I agree with treating the patient initially with vancomycin and cefepime in case she has bacterial cavitary lung infection. I have ordered sputum for AFB and fungus and I have consulted Dr. Robledo. The patient has not been producing much in the way of sputum and I think possibly bronchoscopy may be helpful. DISCUSSION: The patient in the past 3 months has been having abdominal pain, nausea, vomiting, weight loss, hot and cold flashes. She has lost 15 pounds. She has not had any diarrhea. In fact she told me that when she has a lot of hot and cold flashes she becomes constipated. Associated with the nausea and vomiting she aches all over. Studies thus far show a CBC with a white count of 7920, hemoglobin 11.5, and platelet count 223,000, creatinine 0.8. GFR is greater than 60. The patient's CBC shows a white count of 7210, hemoglobin 9.9, platelet count 395,000. Creatinine 0.7. GFR is greater than 60. Swab for influenza is negative. Blood cultures are pending. CT scan of the chest, abdomen and pelvis showed progressive cavitary consolidation or mass. The CAT scan also showed worsening diffuse nodular densities. The CT scan showed colonic diverticulosis. PAST MEDICAL HISTORY/REVIEW OF SYSTEMS: Eyes and ears: The patient wears glasses. Her hearing is okay. Neck: No stiffness. Endocrine: The patient does not have diabetes or thyroid disease. Bones, joints, muscles: Patient states that she aches all over in her bones for the past 6 months. Genitourinary: No dysuria or flank pain. GI: See present illness. Cardiac: No chest pain or palpitations. Respiratory: Patient has a chronic cough and she has been dyspneic especially with activity for years also. 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 PREVIOUS HOSPITALIZATIONS AND OPERATIONS: Patient has had labor and deliveries , miscarriages, surgery for throat cancer, and she has been admitted because of alcoholism also. MEDICAL DISEASES: Positive for throat cancer, COPD, alcoholism and cigarette use. INFECTIOUS DISEASE HISTORY: Negative for pneumonia and UTI. FAMILY HISTORY: Positive for diabetes mellitus, hypertension and cancer. SOCIAL HISTORY: [place]. She smokes cigarettes. She stopped drinking alcoholic beverages over a year ago. She does use marijuana. PHYSICAL EXAMINATION: Vital Signs: Temperature is 98.3 degrees, pulse 73, respirations 18, blood pressure is 103/71. The patient weighs 103 pounds. General: The patient looks chronically ill and malnourished. Head, eyes, ears, nose, and throat: She can hear my spoken words and see near objects. She does have some white coating on her tongue but she says it is not bothering her and is not painful. Neck: No meningismus. Thorax: Increased AP diameter of the chest. Lungs: Clear to auscultation. Cardiovascular: Heart rate is regular. Abdomen: Soft but somewhat tender in the upper part of her abdomen. Neurologic: The patient is alert. She can move her extremities. There is no tremor. Her sensation was intact to touch. Her memory as regarding her medical illnesses is decreased. Integument: No rash noted. Thank you for the consult. cc: Clemente Montero MD [facility]
[2018-07-10] MEDS ORDERED: LACTULOSE PO SCH (21:00)
--- NOTE | 2018-07-10 21:08 | PROGRESS NOTE ---
DATE: 07/10/2018 SUBJECTIVE: Last night, the patient underwent a chest, abdomen and pelvis CT. It was remarkable for slowly progressive chronic cavitary consolidation or mass in the superior segment of the right lower lobe. There were worsening nodular densities throughout the right lung base. They were also cavitary. The differential includes tuberculosis, histoplasmosis, atypical mycobacterium and malignancy. There were no acute GI processes in the abdomen or pelvis to account for her nausea with vomiting or ongoing weight loss. There was evidence of stable diverticulosis. Today, the patient reports interval resolution of the nausea with vomiting and states that she is hungry. PHYSICAL EXAM: Vital Signs: Her blood pressure is 103/71, pulse 73, respiration 18, temperature of 98.3 degrees. The remainder of her exam was deferred. OBJECTIVE DATA: Reveals a hemoglobin of 9.9 with hematocrit of 30.4 and a white count of 7.21. She has 395,000 platelets. Her ESR is 71. Sodium is 134, potassium 4.1, chloride 99, CO2 18, BUN 12, creatinine 0.7 with a glucose of 62. Calcium is 8.3, magnesium 1.7, CRP of 51.85, and a CEA of 4.0. RECOMMENDATION: 1. From a GI perspective, her nausea and vomiting appears to have resolved. Therefore, I will advance her diet as tolerated. 2. The patient appears to have a significant pulmonary lesion. I have consulted Dr. Christiano Robledo for further evaluation. 3. I explained to the patient and her that she may have tuberculosis versus malignancy versus infection. They are aware of the possibilities and await Dr. Robledo's intervention and evaluation. 4. The patient has elevated CEA, but there have been no GI findings on EGD or colonoscopy to account for the elevated CEA. I am concerned that this likely represents a pulmonary malignancy with metastasis. We will defer to Dr. Robledo's endoscopic evaluation. 5. The patient has anemia. Evaluation will be based on the results of her pulmonary evaluation. 6. Because there is a risk of tuberculosis, I agree with continued TB precautions pending exclusion of tuberculosis as a causative agent for her CT scan findings. 7. Dr. Abdifatah Arevalo is available over the weekend if there are any additional questions. Please feel free to contact us. cc: MD Salma Ayala CRNP Joel Powell, MD MTDD
--- NOTE | 2018-07-11 00:47 | PULMONOLOGY CONSULTATION ---
DATE: 07/10/2018 REASON FOR CONSULTATION: Progressive cavitary lesion. HISTORY OF PRESENT ILLNESS: Ms. Mo is a 57-year-old black female status post treatment for a head and neck cancer approximately 9 years ago by her report. She has had no evidence of recurrence. The patient has had a cavitary process defect in the superior segment of the right lower lobe. The patient underwent bronchoscopy by Dr. Simon on 02/11/2017, and she reports she continues to follow up in his office. Washings for cytology, AFB, and fungal stains were performed. No significant pathogens were identified, and lung biopsies at that time revealed benign pulmonary parenchyma with chronic inflammation. The patient has had difficulty with ongoing weight loss. The patient presented to the emergency room because she thought she had food poisoning. She was having some nausea and vomiting with some epigastric tenderness. She underwent a CT scan of the chest, abdomen, and pelvis. No acute abdominal process was identified. She has had some progressive cavitation in the superior segment of the right lower lobe when CT scan 12/23/2017 and 06/09/2018 are compared to her current film. The patient denies significant sputum production. She denies sweats. She does report she is occasionally chilled. PAST MEDICAL HISTORY: Problem list: 1. History of head and neck cancer as per above. 2. COPD with ongoing tobacco use. 3. Prior bronchoscopy as per above. 4. History of alcohol dependence. 5. History of dyslipidemia. 6. Sleep apnea, followed by Dr. Simon. 7. History of brain aneurysm. 8. History of bilateral tubal ligation. SOCIAL HISTORY: The patient reports continues to smoke. She reports she has stopped drinking alcohol. FAMILY HISTORY: Noncontributory. PHYSICAL EXAMINATION: General: Reveals a thin black female who appears older than her stated age of 57. Vital signs: BP 103/71, heart rate 73, respiratory rate 18, oxygen saturation 98%. HEENT: Pupils are equal and reactive. Oropharynx is clear. Neck: Reveals prior head and neck surgery. Chest: Reveals occasional rhonchi bilaterally. Cardiac Exam: S1, S2. Abdomen: Scaphoid and soft. Extremities: Without edema. LABORATORIES: White blood count 7.21, hemoglobin 9.9, platelet count 395,000. IMPRESSION: A 57-year-old with progressive cavitation in the superior segment of the right lower lobe. Previous bronchoscopies failed to identify a fungus, bacteria, or atypical mycobacterium. She currently denies significant sputum production but does have a slightly wet cough. This may represent an indolent infectious process, but a squamous cell carcinoma might also appear similar. RECOMMENDATIONS: 1. Continue to collect sputum for C and S, fungal and bacterial cultures as you are doing. 2. We will schedule CT-guided biopsy of the thick-walled cavity on Friday. This will also allow special stains to be performed to look for pathogens as well as malignancy. cc: Christiano Robledo MD [facility]
[2018-07-11] MEDS: PROTONIX IV SCH ×2 (03:02→17:33)
[2018-07-11] MEDS: MAXIPIME 2 GM in NS 100 ML IV SCH ×2 (03:02→13:39)
[2018-07-11] MEDS: NS 1,000 ML IV SCH ×3 (03:03→16:47)
[2018-07-11] MEDS: DUONEB (A & A) INH SCH ×3 (03:17→22:04)
[2018-07-11 06:48] LABS: BASO# 0.01 X1000 (0.0-0.2); BASO% 0.2 % (0.0-0.8); EOS# 0.19 X1000 (0.0-0.7); EOS% 4.1 % (0.0-10.0); HEMOGLOBIN 9.7 g/dL (12.0-16.0); LYMPH# 0.67 X1000 (1.2-3.4); LYMPH% 14.6 % (20.5-51.1); MCH 26.6 PG (27-31); MCHC 32.3 g/dL (33-37); MCV 82.2 FL (81-99); MONO# 0.58 X1000 (0.11-0.59); MONO% 12.7 % (1.7-9.3); NEUT# 3.13 X1000 (1.4-6.5); NEUT% 68.4 % (42.2-75.2); PLT 410 X1000 (130-400); RBC 3.65 XMIL (4.2-5.4); WBC 4.58 X1000 (4.8-10.8)
[2018-07-11 07:21] LABS: AGAP 16; ALB/GLOB RATIO 1.2; ALKALINE PHOSPHATASE 114 U/L (32-104); BUN 8 mg/dL (8-22); CALCIUM 8.3 mg/dL (8.8-10.2); CHLORIDE 102 mmol/L (98-107); COSMO 271; CREATININE 0.6 mg/dL (0.5-0.9); ESTIMATED GFR > 60; GLUCOSE 79 mg/dL (70-104); GOT 10 U/L (10-30); GPT < 5 U/L (10-36); MAGNESIUM 1.7 mg/dL (1.5-2.7); PHOSPHORUS 2.8 mg/dL (2.7-4.5); POTASSIUM 4.2 mmol/L (3.5-5.1); SODIUM 137 mmol/L (136-145); TCO2 19 mmol/L (25-35); TOTAL BILIRUBIN 0.19 mg/dL (0.20-1.00); TOTAL PROTEIN 5.6 g/dL (6.3-8.3)
--- NOTE | 2018-07-11 08:19 | Diag Imaging Result Doc PS360 ---
CHEST-PORTABLE - 07/11/2018 INDICATION: dyspnea COMPARISON: 07/09/2018 FINDINGS: There is a stable large cavitary opacity in the right midlung. No new infiltrates or masses. IMPRESSION: No change from prior. Electronically signed by Quinton Lange 07/11/2018 8:17 AM
[2018-07-11] MEDS ORDERED: FIORICET PO ONE (08:29)
[2018-07-11] MEDS: NICODERM PATCH TD SCH (09:00)
--- NOTE | 2018-07-11 13:16 | PROGRESS NOTE ---
DATE: 07/11/2018 SUBJECTIVE: The patient is resting comfortably. She complains of diarrhea and nausea. OBJECTIVE: Vital signs: Temperature is 98, blood pressure 117/93, heart rate 91, respirations 24, O2 saturation is 100% on room air. General: This is an elderly female lying in bed in no acute distress. Heart: S1, S2 normal. Regular rate and rhythm. Lungs: Equal inhalation bilaterally. No crackles. No rales. Abdomen: Positive bowel sounds. Soft, nontender and nondistended. Extremities: No edema. No cyanosis. Neurologic: The patient is alert and oriented x3. DIAGNOSTIC DATA: White blood cell count is 4.5, hemoglobin 9.7, hematocrit 30, platelets 412. Sodium is 137, potassium 4.2, chloride 102, CO2 is 19, BUN is 8, creatinine 0.6 , glucose 79, AST is 10. ASSESSMENT AND PLAN: 1. Right lower lobe cavitary lesion. The workup is in progress. Continue with antibiotics. Follow up on the serologies and cultures. 2. Constipation. Improved. The patient states that she is now having diarrhea. We will hold the lactulose today. 3. Tobacco dependence. The patient has been counseled about smoking cessation. 4. Alcohol abuse. The patient is on Ativan as needed. 5. Gastrointestinal prophylaxis. Continue on Protonix. 6. DVT prophylaxis. Continue on Lovenox. cc: Rhiannon Mars MD [facility]
[2018-07-11] MEDS: VANCOMYCIN 1,250 MG in NS 250 ML IV SCH (15:04)
--- NOTE | 2018-07-11 15:49 | Diag Imaging Result Doc PS360 ---
KUB ABDOMEN - 07/11/2018 INDICATION: constipation COMPARISON: 07/09/2018 FINDINGS: There is a nonobstructive bowel gas pattern. No free air or abdominal calcifications. There is no constipation. IMPRESSION: No acute disease. Electronically signed by Quinton Lange 07/11/2018 3:46 PM
--- NOTE | 2018-07-11 20:15 | PULMONOLOGY PROGRESS NOTE ---
DATE: 07/11/2018 SUBJECTIVE: The patient is awake, alert and conversant. She was able to collect a sputum which reveals a few gram-positive cocci. She reports no change in her overall shortness of breath. OBJECTIVE: General: The patient has been afebrile during this hospitalization. Vital Signs: Blood pressure 132/88, heart rate 70, respiratory rate 20, oxygen saturation 99 % on room air. HEENT: Pupils are equal and reactive. Oropharynx is clear. Neck: Supple. Chest: Chest reveals prolonged expiratory phase with occasional rhonchi. Cardiac: S1, S2. Abdomen: Soft and without hepatosplenomegaly. Extremities: Without edema. LABORATORIES: Sodium 137, potassium 4.2, chloride 102, bicarbonate 19, anion gap 16, BUN 8, creatinine 0.6. Carcinoembryonic antigen. 4.0. White blood count 4.58, hemoglobin 9.7, platelet count 410,000. IMPRESSION: A 57-year-old with progressive cavitation of a thick wall lesion in the superior segment of the right lower lobe with negative prior bronchoscopy, abnormal weight loss, no active signs of infection. Patient has a history of head and neck cancer and she continues to smoke. RECOMMENDATIONS: 1. Await results of the sputum cultures. 2. Smoking cessation. 3. CT-guided biopsy planned for Friday. cc: Christiano Robledo MD [facility]
[2018-07-11] MEDS: PATIENT'S OWN MED BOTH EYES SCH (22:19)
[2018-07-12] MEDS: MAXIPIME 2 GM in NS 100 ML IV SCH ×2 (02:14→12:42)
[2018-07-12] MEDS: PROTONIX IV SCH ×2 (02:15→14:56)
[2018-07-12] MEDS: NS 1,000 ML IV SCH (03:42)
[2018-07-12] MEDS: DUONEB (A & A) INH SCH ×4 (03:43→22:19)
[2018-07-12 06:48] LABS: BASO# 0.01 X1000 (0.0-0.2); BASO% 0.2 % (0.0-0.8); EOS# 0.22 X1000 (0.0-0.7); EOS% 4.8 % (0.0-10.0); HEMATOCRIT 29.3 % (37.0-47.0); HEMOGLOBIN 9.8 g/dL (12.0-16.0); LYMPH# 0.57 X1000 (1.2-3.4); LYMPH% 12.5 % (20.5-51.1); MCHC 33.4 g/dL (33-37); MCV 80.7 FL (81-99); MONO# 0.47 X1000 (0.11-0.59); MONO% 10.3 % (1.7-9.3); MPV 9.3 FL (7.4-10.4); NEUT# 3.29 X1000 (1.4-6.5); NEUT% 72.2 % (42.2-75.2); PLT 399 X1000 (130-400); RBC 3.63 XMIL (4.2-5.4); WBC 4.56 X1000 (4.8-10.8)
[2018-07-12 07:28] LABS: AGAP 14; BUN 5 mg/dL (8-22); CALCIUM 8.4 mg/dL (8.8-10.2); CHLORIDE 104 mmol/L (98-107); COSMO 279; CREATININE 0.5 mg/dL (0.5-0.9); ESTIMATED GFR > 60; GLUCOSE 101 mg/dL (70-104); POTASSIUM 3.2 mmol/L (3.5-5.1); SODIUM 141 mmol/L (136-145); TCO2 23 mmol/L (25-35)
[2018-07-12] MEDS: NICODERM PATCH TD SCH (09:06)
[2018-07-12] MEDS ORDERED: KLOR-CON PO ONE (09:07)
[2018-07-12] MEDS: CLINIMIX E 4.25%-5% SOLUTION 1,000 ML IV SCH ×2 (09:10→19:20)
[2018-07-12] MEDS ORDERED: MAGNESIUM SULFATE 2 GM/S.W.I. 2 GM/50 ML IVPB IV ONE (09:54)
[2018-07-12] MEDS: FIORICET PO PRN (12:41)
--- NOTE | 2018-07-12 13:47 | INFECTIOUS DISEASE PROGRESS NO ---
DATE: 07/12/2018 CONCLUSION: The patient has a progressive cavitary lung disease. I think this could be due to an infection. MEDICATIONS: The patient is on her 2nd day of treatment with vancomycin and cefepime. PHYSICAL EXAMINATION: Vital Signs: Temperature is 98.3 degrees, pulse 75, respirations 20, blood pressure 117/75. General: This is a chronically ill and somewhat malnourished-appearing, middle- aged female. She is in no acute distress. Head, eyes, ears, nose, throat: She can hear my spoken words and see near objects. She does not have any white coating on her tongue. Neck: No stiffness. Thorax: She has an increase in her AP diameter of the chest. Lungs: Clear to auscultation. Cardiovascular: Heart rate is regular. Abdomen: Soft and nontender. Neurologic: The patient is awake. She can move her extremities. There is no tremor. LAB AND X-RAY: Sputum cultures growing normal gina. Influenza swab is negative. Blood cultures are negative. CBC has a white count of 4,560, hemoglobin 9.8, and platelet count of 399,000. Creatinine 0.5. GFR is greater than 60. ASSESSMENT AND PLAN: The patient is being treated with antibiotics for possible lung infection. Sputum specimens for AFB and fungi have been ordered. Dr. Robledo has seen the patient and he is planning on having a transthoracic lung biopsy done if the patient's cultures are negative. COMORBIDITIES: She is a cigarette smoker. She previously drank alcoholic beverages. She does now also use marijuana. cc: Clemente Montero MD
[2018-07-12] MEDS ORDERED: SODIUM CHLORIDE 0.9% 10 ML ONE (14:30)
[2018-07-12] MEDS: VANCOMYCIN 1,250 MG in NS 250 ML IV SCH (16:15)
--- NOTE | 2018-07-12 17:54 | PROGRESS NOTE ---
DATE: 07/12/2018 SUBJECTIVE: The patient is resting comfortably, she complains of a headache. OBJECTIVE: Vital signs: Temperature 97.9 degrees, blood pressure 113/73, heart rate 89, respirations 20, O2 saturations 100% on room air. General: This is an elderly female lying in bed in no acute distress. Heart: S1, S2 normal, regular rate and rhythm. Lungs: Equal air entry bilaterally. No wheezing, no rales. Abdomen: Positive bowel sounds. Soft, nontender, nondistended. Extremities: No edema, no cyanosis. Neuro: The patient is alert and oriented x3. LABS: White blood cell count 4.5, hemoglobin 9.8, hematocrit 29, platelets 399, 000, sodium 141, potassium 3.2, magnesium 1.7, BUN 5, creatinine 0.5, glucose 101. ASSESSMENT AND PLAN: 1. Cavitary lung infection. The patient is currently on antibiotic. Infectious disease and pulmonary are following for potential lung biopsy. 2. Constipation. Improved. 3. Tobacco dependence. The patient has been counseled about smoking cessation. 4. Alcohol abuse. Continue with p.r.n. Ativan. 5. Migraine headaches. Continue on Fioricet. Will add Topamax. 6. Gastrointestinal prophylaxis. Continue on Protonix. 7. Deep vein thrombosis prophylaxis. Continue on Lovenox. cc: Rhiannon Mars MD [facility]
--- NOTE | 2018-07-12 20:15 | PULMONOLOGY PROGRESS NOTE ---
DATE: 07/12/2018 SUBJECTIVE: The patient is awake, alert and conversant. She is unable to produce significant sputum. She denies fevers or chills. She continues to have some epigastric pain with nausea and is currently on Clinimix. OBJECTIVE: The patient has been afebrile since hospital admission. Blood pressure 117/75, heart rate 75, respiratory rate 20, oxygen saturation 99% on room air.HEENT: Pupils are equal and reactive. Oropharynx is clear. Neck: Is supple. Chest: Reveals prolonged expiratory phase with faint crackles at the right lung base. Cardiac: S1-S2. Abdomen: Soft without hepatosplenomegaly. Extremities: Without edema. LABORATORIES: Sputum culture reveals sparse growth of normal gina. White blood count 4.56, hemoglobin 9.8, platelet count 399,000, sodium 141, potassium 3.2, chloride 104, bicarbonate 23, BUN 5, creatinine 0.5. AFB smear from 07/11/2018 no AFB seen. IMPRESSION: 57-year-old with progressive thick wall cavitary lesion in the right lower lobe. Prior bronchoscopy was negative for AFB or fungal disease and the area has progressed in thickness and cavitation. She has a history of head and neck cancer. She continues to smoke. She has no active signs of infection. PLAN: 1. Proceed with CT-guided biopsy tomorrow morning. 2. Continue current antibiotic regimen. 3. Smoking cessation was discussed and recommended. cc: Christiano Robledo MD
[2018-07-12] MEDS: PATIENT'S OWN MED BOTH EYES SCH (22:07)
[2018-07-13] MEDS: PHENERGAN IV PRN ×2 (00:08→17:39)
[2018-07-13] MEDS: MAXIPIME 2 GM in NS 100 ML IV SCH ×2 (02:41→14:20)
[2018-07-13] MEDS: DUONEB (A & A) INH SCH ×5 (03:54→22:40)
[2018-07-13] MEDS: PROTONIX IV SCH ×2 (04:03→14:55)
[2018-07-13 06:44] LABS: BASO# 0.02 X1000 (0.0-0.2); BASO% 0.2 % (0.0-0.8); EOS# 0.31 X1000 (0.0-0.7); EOS% 3.2 % (0.0-10.0); HEMATOCRIT 31.4 % (37.0-47.0); HEMOGLOBIN 10.4 g/dL (12.0-16.0); LYMPH# 0.59 X1000 (1.2-3.4); LYMPH% 6.1 % (20.5-51.1); MCH 26.8 PG (27-31); MCHC 33.1 g/dL (33-37); MCV 80.9 FL (81-99); MONO# 0.56 X1000 (0.11-0.59); MONO% 5.8 % (1.7-9.3); MPV 9.1 FL (7.4-10.4); NEUT# 8.12 X1000 (1.4-6.5); NEUT% 84.7 % (42.2-75.2); PLT 469 X1000 (130-400); RBC 3.88 XMIL (4.2-5.4); RDW 14.4 % (11.5-14.5)
[2018-07-13 07:24] LABS: AGAP 13; BUN 8 mg/dL (8-22); CHLORIDE 101 mmol/L (98-107); COSMO 273; CREATININE 0.6 mg/dL (0.5-0.9); ESTIMATED GFR > 60; GLUCOSE 116 mg/dL (70-104); POTASSIUM 3.9 mmol/L (3.5-5.1); SODIUM 137 mmol/L (136-145); TCO2 23 mmol/L (25-35)
--- NOTE | 2018-07-13 09:53 | Diag Imaging Result Doc PS360 ---
EXAM: CHEST-2 VIEWS INDICATION: POST BIOPSY LUNG TECHNIQUE: 2 views COMPARISON: 07/11/2018 FINDINGS: The right upper lobe cavitary lung mass is stable as compared to the prior study. There is no evidence of pneumothorax status post right lung biopsy. No new consolidations are identified. Cardiac silhouette is stable. IMPRESSION: No evidence of pneumothorax status post right lung biopsy. Stable chest, otherwise. Electronically signed by Linus Gutierrez 07/13/2018 9:51 AM
[2018-07-13] MEDS: TOPAMAX PO SCH (10:29)
[2018-07-13] MEDS: NICODERM PATCH TD SCH (10:29)
[2018-07-13] MEDS: FIORICET PO PRN (10:34)
[2018-07-13] MEDS: CLINIMIX E 4.25%-5% SOLUTION 1,000 ML IV SCH ×2 (10:35→20:35)
--- NOTE | 2018-07-13 12:39 | Diag Imaging Result Doc PS360 ---
EXAM: CT GUIDED BIOPSY LUNG INDICATION: Thick wall cavity, ? malignant TECHNIQUE: COMPARISON: CT chest abdomen and pelvis dated 07/09/2018 FINDINGS: Risks, benefits, and alternatives were discussed with the patient and informed consent was obtained. Patient was placed in a prone position and was prepped and draped in sterile fashion. Local anesthesia was achieved with 1% lidocaine solution. Using CT guidance, an 18-gauge coaxial biopsy needle system was used to obtain three 1.3 cm core biopsies from the periphery of the thick-walled cavitary mass in the right upper quadrant seen on previous CT. There were no known complications. A postprocedural chest radiograph showed no pneumothorax. IMPRESSION: Technically successful CT-guided right upper lobe lung biopsy. Electronically signed by Linus Gutierrez 07/13/2018 12:36 PM
[2018-07-13] MEDS: VANCOMYCIN 1,250 MG in NS 250 ML IV SCH (14:54)
--- NOTE | 2018-07-13 16:50 | INFECTIOUS DISEASE PROGRESS NO ---
DATE: 07/13/2018 PRESENT ILLNESS: Ms. Mo has a cavitary lung mass and is status post right upper lobe biopsy done this morning. There is a possibility of infection to the area. MEDICATIONS: She is receiving broad-spectrum coverage using IV vancomycin per pharmacy dosing and cefepime 2 grams IV every 12 hours. Today is day 3 of these medications. PHYSICAL EXAMINATION: Vital Signs: She has been afebrile since admission. Most recent temp 98.1 degrees, pulse rate 89, respiratory rate 18, blood pressure 109/78, and O2 saturation 95% on room air. General: This is a chronically ill-appearing middle-aged female. She is lying on her left lateral left side in mild distress due to pain to her right shoulder after biopsy, and pain to her abdomen. HEENT: Atraumatic, normocephalic. Oral mucous membranes are pink and moist. Conjunctivae are pale pink. Neck: Supple. Trachea is midline. Cardiovascular: Heart rate and rhythm are regular. Normal sinus rhythm on the monitor. Pedal and radial pulses are palpable bilaterally. No edema noted. Respiratory: Lung sounds are clear and diminished bilaterally. Abdomen: Soft, flat, and tender. Bowel sounds are active. Neurologic: She is awake, alert, and oriented. Able to move all extremities without weakness in the bed. Integumentary: Skin is warm and dry. She does have Band-Aids noted to her right back from the biopsy. LABORATORY AND X-RAY: Today her white count is 9.6, hemoglobin 10.4, platelet count 469,000. Creatinine is 0.6, estimated GFR is greater than 60. Her AFB smear was negative. She does have a sputum culture which is pending that has gram positive cocci noted. Blood cultures have shown no growth after 48 hours. Chest x-ray this morning shows no evidence of pneumothorax after the right lung biopsy, with no new consolidations and right upper lobe cavitary lung mass, which is stable. ASSESSMENT AND PLAN: Ms. Mo is being treated with broad-spectrum antibiotics for the possibility of a lung infection related to her cavitary lesion on the right. We are still awaiting results of her sputum culture, which is pending, as well as the lung biopsy pathology. For now, we will continue vancomycin and cefepime as ordered. These plans have been discussed with and recommended by Dr. Montero. COMORBIDITIES: The comorbidities for Ms. Mo include that she is a smoker and alcoholic, with COPD, and a history of head and neck cancer. Dictated by ANA Pond for Clemente Montero MD This chart was documented by, ANA Pond and accurately reflects the services performed, treatment plan and medical decisions as attested by the providers signature Clemente Montero MD. cc: Clemente Montero MD [facility]
[2018-07-13] MEDS: MORPHINE IV PRN ×2 (17:47→21:50)
[2018-07-13] MEDS: ZOFRAN IV PRN (17:50)
--- NOTE | 2018-07-13 17:54 | PROGRESS NOTE ---
DATE: 07/13/2018 SUBJECTIVE: The patient is resting comfortably in bed. No acute events noted overnight. The patient had a CT-guided lung biopsy done this morning. OBJECTIVE: Vital Signs: Temperature 98.6 degrees, blood pressure 107/76, heart rate 91, respirations 18, O2 saturation 98% on room air. General: This is a chronically ill-appearing, elderly female lying in bed, in no acute distress. Heart: S1 and S2 normal. Regular rate and rhythm. Lungs: Equal air entry bilaterally. No wheezing. No rales. No rhonchi. Abdomen: Positive bowel sounds. Soft, nontender, nondistended. Extremities: No edema. No cyanosis. Neurologic: The patient is alert and oriented x3. LABORATORY DATA: Hemoglobin 10, hematocrit 31. Platelets 469,000. Sodium 137, potassium 3.9, chloride 101, CO2 23, BUN 8, creatinine 0.6, glucose 116. ASSESSMENT AND PLAN: 1. Cavitary lung infection. The patient had a CT-guided lung biopsy today. Will continue with antibiotic therapy pending the results of the biopsy. Pulmonary and Infectious Disease are following. 2. Constipation. The patient is having bowel movements. 3. Migraines. Continue on p.r.n. Fioricet. 4. Alcohol abuse. Continue with p.r.n. Ativan. 5. Tobacco dependence. The patient has been counseled about smoking cessation. 6. Gastroesophageal reflux disease. Continue on Protonix. 7. Deep vein thrombosis prophylaxis. Will restart the patient's Lovenox. cc: Rhiannon Mars MD
--- NOTE | 2018-07-13 20:27 | PROGRESS NOTE ---
DATE: 07/13/2018 SUBJECTIVE: The patient continues to have episodic abdominal pain that she describes as severe knife-like pain in the epigastrium that radiates into her back that is associated with nausea with vomiting. She reports awakening in the middle of the night with nausea with vomiting following the onset of this severe abdominal pain. Although she has had a normal HIDA scan in 2018, in 2016 and 2017 she had small stones present on her CT scans. Those previous labs were associated with a bump in liver function tests. Currently, she only has a mildly elevated alkaline phosphatase. It tends to wax and wane which remains concerning for gallstones. PHYSICAL EXAM: Vital Signs: Her blood pressure is 141/68, pulse of 68, respiration 15, temperature of 98.1 degrees. Her oxygen saturation is 94% on room air. HEENT: Negative for jaundice. Her oropharyngeal mucosa membranes are moist. Pulmonary: Lungs are clear to auscultation with normal respiratory effort. Cardiovascular: Reveals regular rate and rhythm with no murmurs, gallops, or rubs. Abdomen: Soft with epigastric tenderness. There is no rebound or guarding. Extremities: Negative for cyanosis, clubbing, or edema. OBJECTIVE DATA: Reveals a hemoglobin of 10.4 with hematocrit of 31.4 and a white count of 9.60. She has 469,000 platelets. Sodium is 137, potassium 3.9, chloride 101, CO2 of 23, BUN 8, creatinine 0.6 with a glucose of 116 and a calcium of 9.0. RECOMMENDATION: 1. Given that the patient has had gallstones on previous CT scan and continues to have symptoms that are suggestive of biliary colic in the setting of an elevated alkaline phosphatase, I will obtain a right upper quadrant ultrasound in the morning. 2. Continue Protonix 40 mg IV q.12 hours. 3. Continue Clinimix until she is able to tolerate an oral diet. 4. One can consider an empiric trial with Carafate as she had gastroduodenitis on her previous EGD, which was just performed in March 2018. 5. Patient underwent a lung biopsy today to further evaluate the right lung mass. The results are pending. 6. Additional recommendations to follow based on her clinical course. cc: MD Salma Montalvo CRNP Joel Powell, MD MTDD
[2018-07-13] MEDS: PATIENT'S OWN MED BOTH EYES SCH (20:34)
[2018-07-13] MEDS ORDERED: TYLENOL PO ONE (23:01)
--- NOTE | 2018-07-14 01:20 | PULMONOLOGY PROGRESS NOTE ---
DATE: 07/13/2018 SUBJECTIVE: The patient is awake and alert. She reports she is still having difficulty with eating due to epigastric pain. CT scan of the chest with CT-guided biopsy performed earlier today. She reports some pain with that but tolerated it without difficulty. OBJECTIVE: The patient has been afebrile during this hospitalization. Blood pressure 116/79, heart rate 90, respiratory rate 16, oxygen saturation 95% on room air.HEENT: Pupils are equal and reactive. Oropharynx is clear. Neck: Supple. Chest: Reveals prolonged expiratory phase. Cardiac: S1-S2. Abdomen: Soft and without hepatosplenomegaly. She has mild epigastric pain tenderness. Extremities: Without edema. IMPRESSION: 57-year-old with progressive thick wall cavity in the right lower lobe. QuantiFERON gold TB test was negative. Prior bronchoscopy was negative for AFB or fungal disease. The patient has a history of head and neck cancer. She continues to actively smoke. CT scan has been performed with a biopsy of the thick wall cavity earlier today without evidence of pneumothorax. PLAN: 1. Continue to encourage patient to discontinue tobacco. 2. Continue treatment of epigastric pain and anorexia per GI service. 3. Await results of CT guided biopsy. cc: Christiano Robledo MD
[2018-07-14] MEDS: CLINIMIX E 4.25%-5% SOLUTION 1,000 ML IV SCH ×2 (02:22→12:54)
[2018-07-14] MEDS: MAXIPIME 2 GM in NS 100 ML IV SCH ×2 (03:03→12:54)
[2018-07-14] MEDS: PROTONIX IV SCH ×2 (03:04→14:18)
[2018-07-14] MEDS: DUONEB (A & A) INH SCH ×4 (04:00→23:29)
[2018-07-14 06:38] LABS: BASO# 0.03 X1000 (0.0-0.2); BASO% 0.3 % (0.0-0.8); EOS# 0.13 X1000 (0.0-0.7); EOS% 1.3 % (0.0-10.0); HEMATOCRIT 31.9 % (37.0-47.0); HEMOGLOBIN 10.4 g/dL (12.0-16.0); IMM GRAN# 0.04 X1000 (0.0-0.04); IMM GRAN% 0.4 % (0.0-0.5); LYMPH# 0.94 X1000 (1.2-3.4); LYMPH% 9.5 % (20.5-51.1); MCH 26.7 PG (27-31); MCHC 32.6 g/dL (33-37); MONO# 0.51 X1000 (0.11-0.59); MONO% 5.2 % (1.7-9.3); MPV 9.2 FL (7.4-10.4); NEUT# 8.21 X1000 (1.4-6.5); NEUT% 83.3 % (42.2-75.2); PLT 455 X1000 (130-400); RBC 3.89 XMIL (4.2-5.4); RDW 14.6 % (11.5-14.5); WBC 9.86 X1000 (4.8-10.8)
[2018-07-14 06:57] LABS: AGAP 13; BUN 17 mg/dL (8-22); CALCIUM 8.2 mg/dL (8.8-10.2); CHLORIDE 96 mmol/L (98-107); COSMO 267; CREATININE 0.7 mg/dL (0.5-0.9); ESTIMATED GFR > 60; GLUCOSE 114 mg/dL (70-104); POTASSIUM 4.1 mmol/L (3.5-5.1); SODIUM 132 mmol/L (136-145); TCO2 23 mmol/L (25-35)
--- NOTE | 2018-07-14 08:21 | Diag Imaging Result Doc PS360 ---
EXAM: US GB < RUQ (LIMITED) 07/14/2018 HISTORY: n/v, abd pain, gallstones on prev CT TECHNIQUE: Right upper quadrant ultrasound COMMENT: The pancreas is normal in appearance. The aorta and inferior vena cava are within normal limits. The liver is unremarkable in appearance. There is antegrade flow in the portal vein. The gallbladder is clear and nontender. There is no evidence of biliary dilatation the common bile duct measuring less than 4 mm. The right kidney is without evidence of hydronephrosis or mass. IMPRESSION: No evidence of acute disease. No evidence of gallstones. Electronically signed by Goldy Xie 07/14/2018 8:19 AM
[2018-07-14] MEDS: TOPAMAX PO SCH (08:36)
[2018-07-14] MEDS: LOVENOX SUBQ SCH (08:36)
[2018-07-14] MEDS: NICODERM PATCH TD SCH (08:36)
[2018-07-14] MEDS ORDERED: SODIUM CHLORIDE 0.9% 20 ML ONE (09:36)
[2018-07-14] MEDS: ZOFRAN IV PRN (10:23)
--- NOTE | 2018-07-14 12:49 | PROGRESS NOTE ---
DATE: 07/14/2018 SUBJECTIVE: She presented with abdominal pain, nausea and vomiting. She sees ANA Shen, here. She is also followed by Dr. Denise Keith. A 57-year-old, black female with a history of COPD, hyperlipidemia, nicotine dependence, pre diabetes, iron deficiency anemia and chronic abdominal pain, who presented with abdominal pain, nausea and vomiting since . Today, she reports since that time she has had epigastric and right upper quadrant pain associated with nausea and vomiting almost any time she tries to eat. She is able to hold down some medications when she tries, but for the most part, she throws up despite her attempts to eat. She is reports epigastric discomfort, frequent urge to belch, and inability to do so. In the few days, she has reported throwing up blood. She came to the emergency room for evaluation in the emergency room. Labs were done and were noted to be unremarkable. Her vital signs were stable. However, ER are spoke to and she recommended admission. She had epigastric and midsternal discomfort. PAST MEDICAL HISTORY: 1. COPD. 2. Nicotine dependence. 3. Gastroesophageal reflux disease. 4. History of cavitary pneumonia status post bronchoscopy in 2017. 5. History of polysubstance dependence. 6. History of alcohol dependence. 7. Hyperlipidemia. 8. History of gastroesophageal cancer. 9. Sleep apnea. 10. Apnea, chronic. 11. History of brain aneurysm. PAST SURGICAL HISTORY: 1. Bilateral tubal ligation. 2. Esophageal tumor excision. 3. Brain aneurysm repair. 4. EGD and colonoscopy, although admitted with nonspecific abdominal pain. She had a CT of abdomen and chest, slowly progressive chronic cavitary consolidation or mass in the superior segment of the right lower lobe, worsening diffuse nodular densities throughout the right lung base, also largely cavitary. It likely represents chronic infectious process. May want to consider tuberculosis, histoplasmosis or atypical mycobacteria. Infectious Disease was consulted. Because of her progressive cavitary lung disease, it is possible that she has Mycobacterium infection such as mycobacterium avium complex, TB or fungal pulmonary infection, such as histoplasmosis or chronic aspergillosis. So, studies were performed. Pulmonary asked to see Dr. Robledo. She has progressive cavitations. Segment of the right lower lobe previous bronchoscopies fail to identify fungus bacteria or atypical mycobacterium. Denies any sputum production ,slightly wet cough. So collected sputum for C and S and fungal bacterial cultures, and then scheduled a CT-guided needle biopsy. This was done on 07/13/[address]-guided upper lung biopsy she got an ultrasound this morning. Exam today awake and alert. Just got off a bedside commode. Still does not feel real good. The abdominal discomfort may be predominantly more epigastric discomfort. OBJECTIVE: Vital Signs: Temperature 98.6 degrees, pulse 78, respirations 16, blood pressure 96/67. Eyes: Pupils are equal and round. Lungs: Clear in all lung cooper. Cardiovascular exam: Regular rhythm and rate without murmur or S3. Abdomen: Soft. Skin: Warm and dry. : Urine output 2100 mL. IMAGING: Abdominal ultrasound done this morning: No evidence of acute disease. No evidence of gallstones. ASSESSMENT AND PLAN: 1. The patient has gallstones on previous CT scan. Continued to have symptoms and so suggested of biliary colic in the setting of elevated alkaline phosphatase. So ultrasound was obtained which was read as unremarkable. Continue Protonix 40 mg IV q. 12 hours. She is on the Clinimix, not able to tolerate an oral diet, and this will help her nutrition. Will try trial of Carafate. Her previous esophagogastroduodenoscopy showed some gastroenteritis, which was performed in March 2018. 2. Cavitary lung infection. CT-guided needle biopsy. Await the results. Infectious Disease and Pulmonary are following. 3. Migraines. She takes Fioricet. 4. Alcohol abuse. Continue Ativan p.r.n. 5. Tobacco dependence. Talked about smoking cessation. 6. Gastroesophageal reflux disease. She is on Protonix. 7. Deep vein thrombosis prophylaxis. Review of her orders: Patient on albuterol ipratropium inhalation q. 6 hours and she can get it q. 2 hours p.r.n. She is on Fioricet 1 q .4 hours p.r.n. headaches, getting Clinimix at 75 mL an hour. She gets cefepime 2 g q. 12 hours. Nicotine patch 17 mg patch daily, Protonix 40 mg IV q. 12 hours, Topamax 25 mg daily, vancomycin 1250 mg IV q. 24 hours. This cavitary lung mass is status post right upper lobe biopsy. There is a possible infection in this area. She has received broad-spectrum coverage, IV vancomycin and cefepime. This is the fourth day of these medications. cc: Akil Maldonado MD
[2018-07-14] MEDS: MORPHINE IV PRN ×2 (14:18→21:12)
--- NOTE | 2018-07-14 15:08 | INFECTIOUS DISEASE PROGRESS NO ---
DATE: 07/14/2018 PRESENT ILLNESS: The patient has a cavitary lung mass which has been biopsied. This may be an infection and Dr. Robledo is concerned that it could be a malignancy. The patient also on exam today appeared to have oral candidiasis and she is having problems with heartburn and pain in the epigastric area, which could be due to candidal involvement of the throat and esophagus. MEDICATIONS: The patient is on a combination of vancomycin and cefepime. PHYSICAL EXAMINATION: Vital Signs: Temperature is 98.6 degrees, pulse 78, respirations 16, blood pressure 96/67. General: This is a chronically ill-appearing, middle-aged female. She is lying today on her side, and she is complaining of some epigastric pain. Head/eyes/ears/nose/throat: She can hear my spoken words and see near objects. She does have some white coating on her tongue. Neck: No meningismus. Lungs: Clear to auscultation. Cardiovascular: Heart rate is regular. Abdomen: Soft and slightly tender in the epigastric area. Neurologic: The patient is a little lethargic. She is fully arousable, though. She can move her extremities. There is no tremor. LAB AND X-RAY: The patient's CBC shows a white count of 9860, hemoglobin 10.4, and platelet count 455,000. Creatinine is 0.7. GFR is greater than 60. The sputums for AFB smear are negative. The patient's Aspergillus antigen, histoplasma antigen, and QuantiFERON all are negative. ASSESSMENT AND PLAN: The patient has a cavitary lesion. I am going to continue his antibiotics for the time being, namely cefepime and vancomycin which is day 4 of treatment with them. The biopsy is pending. I am keeping the patient on cefepime and vancomycin in case the cavitary lesion is bacterial in nature. I have started the patient on nystatin swish and swallow to see if that helps her pain. I am going to also add fluconazole in case the patient's oral candidiasis has spread into the esophagus and possibly stomach. COMORBIDITIES: The patient smokes cigarettes and she is alcoholic. She also has COPD and a history of head and neck cancer. cc: Clemente Montero MD
[2018-07-14] MEDS: DIFLUCAN PO SCH (16:03)
[2018-07-14] MEDS: VANCOMYCIN 1,250 MG in NS 250 ML IV SCH (16:03)
[2018-07-14] MEDS ORDERED: MYCOSTATIN SUSP PO SCH (17:00)
--- NOTE | 2018-07-14 20:36 | PROGRESS NOTE ---
DATE: 07/14/2018 DATE OF ROUNDS: 07/14/2018. SUBJECTIVE: The patient states that she is feeling somewhat better today. She continues to have abdominal spasms with mild constipation. She denies severe abdominal pain overnight. She notes that her chest is uncomfortable at the site of the lung biopsy. Her lung biopsy remains pending. EXAMINATION: Vital Signs: Her blood pressure is 92/70, pulse 101, respirations 20, temperature of 97.9. Exam: The remainder of her exam was deferred as her family was at bedside. OBJECTIVE DATA: Reveals a hemoglobin of 10.4, with hematocrit of 31.9 and a white count of 9.86. She has 455,000 platelets. Sodium is 132, potassium 4.1, chloride 96, CO2 23, BUN 17, creatinine 0.7 with a glucose of 114. Calcium is 8.2. Her abdominal ultrasound showed no acute disease. RECOMMENDATIONS: 1. Continue Protonix 40 mg q.12 hours while she is an inpatient. 2. She should complete a course of Diflucan as prescribed. 3. I will begin Levsin 0.125 mg sublingual 4 times a day to help with the abdominal spasms. 4. Additional recommendations to follow based on her clinical course. cc: MD Akil Ayala MD Johnna Langford, CRNP Joel Powell, MD MTDD
[2018-07-14] MEDS: LEVSIN-SL SL SCH (21:11)
[2018-07-14] MEDS: PATIENT'S OWN MED BOTH EYES SCH (21:11)
[2018-07-15] MEDS: CLINIMIX E 4.25%-5% SOLUTION 1,000 ML IV SCH ×2 (02:22→20:52)
[2018-07-15] MEDS: PROTONIX IV SCH ×2 (02:22→16:32)
[2018-07-15] MEDS: MAXIPIME 2 GM in NS 100 ML IV SCH ×2 (02:22→15:05)
[2018-07-15] MEDS: DUONEB (A & A) INH SCH ×4 (03:50→21:10)
[2018-07-15] MEDS: MORPHINE IV PRN ×4 (06:14→23:14)
--- NOTE | 2018-07-15 07:01 | PULMONOLOGY PROGRESS NOTE ---
DATE: 07/14/2018 SUBJECTIVE: The patient is awake and alert. She has a cough which is nonproductive. She denies chest pain. She reports her abdominal pain is improving and she is tolerating some p.o. intake. OBJECTIVE: VITAL SIGNS: BP 99/62, heart rate 84, respiratory rate 15, oxygen saturation 99% on room air. HEENT: Pupils are equal and reactive. Oropharynx is clear. NECK: Supple. CHEST: Reveals prolonged expiratory phase. CARDIAC: S1, S2. ABDOMEN: Soft without hepatosplenomegaly. EXTREMITIES: Without edema. LABORATORIES: CT guided biopsy is pending. Aspergillus antigen, histoplasmosis antigen and QuantiFERON Gold TB tests are all negative. IMPRESSION: 57-year-old with progressive thick wall cavity in the right lower lobe. Bacterial, fungal and AFB workup are negative today. CT guided biopsy has been performed and is pending. The patient has a prior history of head and neck cancer. Patient continues to actively smoke. PLAN: 1. Continue antibiotics per Infectious Disease. 2. Encourage patient to discontinue tobacco use. 3. Continue GI management per . 4. CT guided biopsy pending. cc: Christiano Robledo MD
[2018-07-15] MEDS: NICODERM PATCH TD SCH (08:13)
[2018-07-15] MEDS: DIFLUCAN PO SCH (08:13)
[2018-07-15] MEDS: TOPAMAX PO SCH (08:13)
[2018-07-15] MEDS: LEVSIN-SL SL SCH ×4 (08:14→20:53)
[2018-07-15] MEDS: LOVENOX SUBQ SCH (08:14)
[2018-07-15] MEDS: VANCOMYCIN 1,250 MG in NS 250 ML IV SCH (10:03)
[2018-07-15] MEDS ORDERED: REGLAN LIQUID PO PRN (10:07)
--- NOTE | 2018-07-15 10:23 | PROGRESS NOTE ---
DATE: 07/15/2018 SUBJECTIVE: She is still having abdominal pain and epigastric pain. Feels about the same as yesterday. OBJECTIVE: Vital signs: Remains afebrile. Temperature 98.2 degrees, pulse 77, respirations 16, blood pressure 99/69. Pupils: Are equal and round. Lungs: Clear in all lung cooper. Cardiovascular: Regular rhythm and rate without murmur or S3. Abdomen: Soft. Skin: Warm and dry. Urine output: 3500 mL. ASSESSMENT AND PLAN: 1. Still epigastric discomfort, abdominal spasm, mild constipation. Continue Protonix 40 mg q.12, complete a course of Diflucan. We are going to start her on Levsin 0.125 mg sublingual 4 times a day to help with abdominal spasms. I thought we might try some Reglan to see if it would help. 2. The patient's cavitary lung mass which has been biopsied. This may contain some kind of infection. Dr. Robledo is concerned that it is malignancy. Did have some oral candidiasis, and this could be due to candidal involvement of the throat and esophagus on vancomycin and cefepime. 3. Review of orders. I do not see any change. I will try some Reglan 5 mg q.i.d. and see if that makes any difference. cc: Akil Maldonado MD
[2018-07-15] MEDS: FIORICET PO PRN (19:02)
[2018-07-15] MEDS: PATIENT'S OWN MED BOTH EYES SCH (20:53)
[2018-07-16] MEDS: MAXIPIME 2 GM in NS 100 ML IV SCH ×2 (02:11→13:13)
[2018-07-16] MEDS: PROTONIX IV SCH ×2 (02:11→15:36)
[2018-07-16] MEDS: VANCOMYCIN 1,250 MG in NS 250 ML IV SCH ×3 (03:10→22:44)
--- NOTE | 2018-07-16 04:56 | INFECTIOUS DISEASE PROGRESS NO ---
DATE: 07/15/2018 PRESENT ILLNESS: The patient has a cavitary mass which has been biopsied, the result is still pending. The patient also is having odynophagia and heartburn, this may be due to a Siobhan overgrowth. MEDICATIONS: The patient is on vancomycin and cefepime for the 5th day, and fluconazole was started yesterday because there is a national shortage of Mycostatin. The patient is on vancomycin and cefepime for the possible lung infection, and she has been started on fluconazole for oropharyngeal and possibly esophageal or gastric candidiasis. There is a national shortage of Mycostatin. PHYSICAL EXAMINATION: Vital Signs: Temperature is 98 degrees, pulse 77, respirations 16, blood pressure 110/60. General: This is a chronically ill-appearing middle-aged female. She is having some less pain today than she did yesterday. Head, Eyes, Ears, Nose and Throat: She can hear my spoken words and see near objects. She does not have any white coating on her tongue. Neck: No stiffness. Lungs: Clear to auscultation. Cardiovascular: Heart rate is regular. Abdomen: Soft, and today it was not tender. Neurologic: The patient is a little more alert today. She can move her extremities. There is no tremor. LAB AND X-RAY: Prior lab showed that the patient's Aspergillus antigen, histoplasma antigen and QuantiFERON all are negative. ASSESSMENT AND PLAN: The patient has a cavitary lesion, I am going to continue his antibiotics namely cefepime and vancomycin. This is the 5th day of treatment with those 2 agents, hopefully the patient's lung biopsy will be back soon. There is a national shortage of nystatin, so the patient is on fluconazole in addition to vancomycin and cefepime. COMORBIDITIES: Cigarette smoking, alcoholism, COPD and a history of head and neck cancer. cc: Clemente Montero MD
[2018-07-16] MEDS: DUONEB (A & A) INH SCH ×4 (05:48→21:10)
--- NOTE | 2018-07-16 07:39 | PULMONOLOGY PROGRESS NOTE ---
DATE: 07/15/2018 SUBJECTIVE: The patient is awake, alert, and conversant. She has some right shoulder pain. She reports her abdomen feels a little better and she is tolerating p.o. intake. She is not having any dyspnea. The patient has been afebrile over the last 24 hours but she did have a transient temperature on the evening of the . OBJECTIVE: Vital Signs: Blood pressure 97/62, heart rate 72, respiratory rate 16, oxygen saturation 100% on room air, temperature 98.4 degrees. HEENT: Pupils are equal and reactive. Oropharynx is clear. Neck: Supple. Chest: Reveals occasional rhonchi bilaterally. Cardiac: S1, S2. Abdomen: Soft, without hepatosplenomegaly. Extremities: Without edema. Laboratories: CT-guided biopsy is pending. No new chemistries or cultures. Sputum culture reveals sparse growth. IMPRESSION: A 57-year-old with progressive thick walled cavity in the right lower lobe, ongoing tobacco use, history of head and neck cancer, severe protein calorie malnutrition, and intermittent epigastric pain. PLAN: 1. Continue antibiotics per infectious disease. 2. Encourage smoking cessation. 3. Encourage p.o. intake. 4. CT-guided biopsy pending. Results should be available by tomorrow morning. cc: Christiano Robledo MD
[2018-07-16] MEDS: ZOFRAN IV PRN (07:53)
[2018-07-16] MEDS: TOPAMAX PO SCH (07:59)
[2018-07-16] MEDS: NICODERM PATCH TD SCH (07:59)
[2018-07-16] MEDS: LOVENOX SUBQ SCH (08:00)
[2018-07-16] MEDS: DIFLUCAN PO SCH (08:00)
[2018-07-16] MEDS: LEVSIN-SL SL SCH ×4 (08:00→20:31)
--- NOTE | 2018-07-16 08:02 | Diag Imaging Result Doc PS360 ---
EXAM: CHEST-2 VIEWS 07/16/2018 HISTORY: abnormal exam TECHNIQUE: PA and lateral chest COMMENT: There is a thick-walled and irregular cavity in the superior segment of the right lower lobe. There are also some ill-defined opacities in the inferior medial portion of the right lower lobe. The left lung appears to be clear and the heart and pulmonary vascularity are within normal limits. Compared to 07/13/2018 the basilar opacities are slightly worse in appearance. This may be due to less optimal inspiration however. The cavity in question was not present on 12/23/2017 however there was an ill-defined opacity in this location at that time. IMPRESSION: Right lower lobe pneumonia with cavitary mass in the superior segment. By pathology this is granulomatous. The possibility of active disease elsewhere in the right lower lobe cannot be excluded. Electronically signed by Goldy Xie 07/16/2018 7:59 AM
[2018-07-16] MEDS: MORPHINE IV PRN ×3 (08:10→20:32)
[2018-07-16] MEDS: FIORICET PO PRN (08:11)
[2018-07-16] MEDS ORDERED: SODIUM CHLORIDE 0.9% 20 ML ONE (09:54)
--- NOTE | 2018-07-16 10:19 | PROGRESS NOTE ---
DATE: 07/16/2018 HISTORY OF PRESENT ILLNESS: She does feel a little better today. She has talked about maybe trying to go home in the morning. She would like to arrange home health. OBJECTIVE: Vital Signs: Temperature 98 degrees, pulse 70, respirations 16, blood pressure 100/72. HEENT: Pupils are equal and round. Lungs: Clear in all lung cooper. Cardiovascular: Regular rhythm and rate without murmur or S3. DIAGNOSTIC DATA: Urine output is a little over 4 liters. Chest x-ray from today, right lower lobe pneumonia, cavitary mass in the superior segment. By pathology, this is granulomatosis. Possibility of active disease elsewhere in the right lower lobe cannot be excluded. ASSESSMENT AND PLAN: 1. Thick-walled cavity in the right lower lobe, ongoing tobacco use, history of head and neck cancer, and she has severe protein-calorie malnutrition, intermittent epigastric pain. So, continue present antibiotics. Encouraged smoking cessation. CT-guided biopsy is pending, and hopefully we have the results available soon. 2. Epigastric discomfort, which is a little better. Abdominal spasm and constipation. Continue proton pump inhibitor, and she has been started on Levsin. 3. History of migraine. She is on Fioricet. 4. History of alcohol abuse in the past. cc: Akil Maldonado MD
[2018-07-16] MEDS: CLINIMIX E 4.25%-5% SOLUTION 1,000 ML IV SCH ×2 (15:35→19:26)
[2018-07-16] MEDS: LACTULOSE PO SCH (20:30)
[2018-07-16] MEDS: PATIENT'S OWN MED BOTH EYES SCH (20:31)
[2018-07-17] MEDS: MAXIPIME 2 GM in NS 100 ML IV SCH ×2 (02:19→13:03)
[2018-07-17] MEDS: PROTONIX IV SCH ×2 (02:19→16:26)
[2018-07-17] MEDS: DUONEB (A & A) INH SCH ×3 (03:32→15:53)
--- NOTE | 2018-07-17 04:07 | PROGRESS NOTE ---
DATE: 07/16/2018 SUBJECTIVE: The patient states that since she was placed on Levsin, her abdominal pain has resolved. She only has abdominal pain in the morning, but it resolves as soon as she takes her Levsin. She reports that she is eating better. She denies nausea, vomiting, or abdominal pain. Her only complaint is shoulder pain. She awaits a repeat biopsy of her lung lesion as the initial biopsy was indeterminate. She denies other complaints. OBJECTIVE: On exam, her blood pressure is 104/72, pulse 65, respirations 16, and temperature of 98.1 degrees. The remainder of her exam was deferred. Objective Data: There have been no new labs since 07/14/2018. RECOMMENDATIONS: 1. From a GI perspective, the patient's abdominal pain is resolved. I would continue Levsin 0.125 mg sublingual or p.o. as an outpatient. 2. Continue Reglan as needed. 3. Continue Protonix 40 mg q.12 hours. She may transition to omeprazole 40 mg once a day. 4. From a GI perspective, I will sign off. She should return to the GI clinic as an outpatient for interval reassessment. cc: MD Salma Ayala CRNP Dr. Joel Powell, MD Allen J. Schmidt, MD
--- NOTE | 2018-07-17 04:34 | PULMONOLOGY PROGRESS NOTE ---
DATE: 07/16/2018 SUBJECTIVE: The patient is awake and alert. She reports she is eating well, but when her bedside tray is examined she has had limited off of her lunch plate. She reports her abdominal pain is better. OBJECTIVE: Vital Signs: The patient has been afebrile for the last 24 hours. Blood pressure 100/72, heart rate 66, respiratory rate 15, oxygen saturation 100%. HEENT: Pupils are equal and reactive. Oropharynx is clear. Neck: Supple. Chest: Reveals prolonged expiratory phase. Cardiac: S1 and S2. Abdomen: Scaphoid and soft. Extremities: Without edema. LABORATORIES: Biopsy of the cavitary lesion reveals marked necrosis. Findings consistent with either granulomatous disease or necrotic neoplasm. Special stains for AFB and GMS are negative for acid-fast organisms and fungal elements. IMPRESSION: The patient is a 57-year-old with a history of head and neck cancer, thick-walled cavity in the right lower lobe with ongoing tobacco use, bowel dysfunction and weight loss. The CT-guided biopsy did not provide the etiology for the thick-wall cavity, it was necrotic and no organisms were identified. QuantiFERON gold TB test has been negative making tuberculosis less likely. With necrotic tissue it would be hoped that fungal organisms could be seen. I have discussed the case with the patient. She is willing to try a second biopsy attempt and is aware that a second biopsy may yield the same results. I have discussed the case with Dr. Quinton Lange and he has also agreed to attempt a second biopsy. PLAN: 1. Repeat CT guided biopsy as outlined above. 2. Encourage the patient to discontinue tobacco use. 3. Encourage p.o. intake. cc: Christiano Robledo MD
--- NOTE | 2018-07-17 05:09 | INFECTIOUS DISEASE PROGRESS NO ---
DATE: 07/16/2018 PRESENT ILLNESS: Ms. Mo has a cavitary mass to the right lower lobe. The pathology shows necrosis within a granuloma, with the possibility of necrotic neoplasm. She also has oropharyngeal and possibly esophageal or gastric candidiasis with some odynophagia, which she states is improving. MEDICATIONS: Today is day 6 of treatment with IV vancomycin per pharmacy dosing , cefepime 2 g IV every 12 hours, and she has also been on fluconazole 200 mg p.o. daily for the last 2 days. PHYSICAL EXAM: Vital Signs: Temperature is 98.1 degrees, pulse rate 65, respiratory rate 16, blood pressure 104/72, O2 saturation is 100% on 2 L nasal cannula. General: This is a chronically ill- appearing middle-aged female. She is lying in the bed, currently in no acute distress. HEENT: Atraumatic, normocephalic. Oral mucous membranes are pink and moist. Conjunctivae are pale. Neck: Supple. Trachea is midline. Cardiovascular: Heart rate and rhythm are regular. Normal sinus rhythm on the monitor. Pedal and radial pulses are palpable bilaterally. No edema noted. Abdomen: Soft, round, mildly tender. Bowel sounds are active. Neurologic: She is awake, alert, and oriented. Able to move all extremities with generalized weakness noted. There is no tremor. LABORATORY AND X-RAY: Today, there is no blood work. Her chest x-ray showed right lower lobe pneumonia with a cavitary mass in the superior segment with the possibility of active disease elsewhere in the right lower lobe. Also, her pathology report showed fragments necrotic tissue and debris with findings that could be seen with caseous necrosis within a granuloma and fragments of necrotic neoplasm that cannot be completely excluded. AFB and Gram stains are negative for acid-fast organisms and fungal elements. ASSESSMENT AND PLAN: Ms. Mo has a cavitary lesion with the possibility of active disease elsewhere in the right lower lobe. Her white count is normal. We will continue her vancomycin and cefepime as ordered as well as the fluconazole. These plans have been discussed with and recommended by Dr. Montero. COMORBIDITIES: For Ms. Mo include cigarette smoking and COPD, alcoholism, and a history of head and neck cancer. Dictated by ANA Pond for Clemente Montero MD This chart was documented by, ANA Pond and accurately reflects the services performed, treatment plan and medical decisions as attested by the providers signature Clemente Montero MD. cc: Clemente Montero MD MTDD
[2018-07-17] MEDS: CLINIMIX E 4.25%-5% SOLUTION 1,000 ML IV SCH ×2 (08:12→16:22)
[2018-07-17] MEDS: MORPHINE IV PRN ×3 (08:25→21:30)
[2018-07-17] MEDS: LACTULOSE PO SCH ×3 (08:26→21:37)
[2018-07-17] MEDS: LEVSIN-SL SL SCH ×4 (08:26→21:30)
[2018-07-17] MEDS: ZOFRAN IV PRN ×2 (08:26→14:17)
[2018-07-17] MEDS: DIFLUCAN PO SCH (08:26)
[2018-07-17] MEDS: NICODERM PATCH TD SCH ×2 (08:27→21:42)
[2018-07-17] MEDS: TOPAMAX PO SCH (08:27)
--- NOTE | 2018-07-17 08:56 | PROGRESS NOTE ---
DATE: 07/17/2018 Of note, Dr. Robledo is planning another biopsy. The first biopsy did not provide the etiology for the thick walled cavity and it was necrotic and organism identified. Note that his QuantiFERON gold TB test has been negative, making tuberculosis less likely and so necrotic tissue could possibly be fungal organism. So I think a second biopsy is going to be attempted per Dr. Quinton Lange. Will discuss with team. cc: Akil Maldonado MD
--- NOTE | 2018-07-17 09:01 | PROGRESS NOTE ---
DATE: 07/17/2018 SUBJECTIVE: Ms. Mo says her tummy is feeling better, but she has a little bit of headache, her right shoulder is bothering her. Does not feel real good this morning. OBJECTIVE: Vital Signs: Temperature 97.4 degrees, pulse 82, respirations 18, blood pressure 90/73. HEENT: Pupils are equal and round. Lungs: Clear in all lung cooper. Cardiovascular: Regular rhythm and rate without murmur or S3. Abdomen: Soft. Skin: Warm and dry. DIAGNOSTIC DATA: Urine output is 4400 mL. ASSESSMENT/PLAN: 1. Abdominal pain. Seems to have resolved. Going to continue Levsin 0.125 sublingual p.o. as an outpatient. Continue Reglan as needed. Continue Protonix 40 mg twice a day and then transition to 40 mg once a day. 2. Headache, right temporal. Suspect more of a tension headache. 3. Right shoulder discomfort, right shoulder tendinitis. 4. Cavitary mass in the right lower lobe. Pathology shows necrosis with granuloma, and the possibility of necrotic neoplasm. She has oropharyngeal and possible esophageal gastric candidiasis, and some odynophagia which is improving. This is day 7 of vancomycin and cefepime. Give cefepime 2 g IV q.12 hours. She has been on fluconazole 200 mg a day for the last couple of days. So, she has a cavitary lesion, possibility of active disease elsewhere in the right lower lobe. Going to continue vancomycin and cefepime. 5. She has underlying COPD and history of smoking, history of alcoholism, history of head and neck cancer. 6. As far as discharge plans, she would like to go home with care from her , but we need may need a little longer time of antibiotics. I do not know if it is possible to send her home with home health, but we will discuss her options. cc: Akil Maldonado MD
[2018-07-17] MEDS ORDERED: SODIUM CHLORIDE 0.9% 20 ML ONE (09:53)
--- NOTE | 2018-07-17 16:26 | INFECTIOUS DISEASE PROGRESS NO ---
DATE: 07/17/2018 SUBJECTIVE: The patient has a cavitary lung lesion in the right lower lobe. Unfortunately, a needle biopsy did not give a definitive diagnosis. MEDICATIONS: The patient has been on cefepime and vancomycin now for 7 days and on fluconazole for 3 days. OBJECTIVE: Vital Signs: Temperature is 97.4 degrees, pulse 82, respirations 18, blood pressure 90/73. General: This is a chronically ill-appearing middle-aged female. She is in no acute distress. Head, eyes, ears, nose, and throat: She can hear my spoken words and see near objects. She does not have any white coating on her tongue. Neck: No stiffness. Lungs: Clear to auscultation. Cardiovascular: Heart rate is regular. Abdomen: Soft and nontender. Neurologic: Patient is alert. She can ambulate. There is no tremor. LAB AND X-RAY: The patient's CBC shows a white count of 9860, hemoglobin 10.4, and platelet count 455,000. Creatinine is 0.7. GFR is greater than 60. The QuantiFERON TB test is negative. The aspergillus antibody is negative, and the histoplasma antigen is negative. Two acid-fast smears also are negative. ASSESSMENT AND PLAN: The patient has a cavitary lung lesion. I discussed with the patient that since the needle biopsy on her lung did not give us a definite diagnosis, that it would be best to proceed with a lung biopsy, and the patient said she wants whatever needs to be done to make a definite diagnosis on her cavitary lung lesion. In my opinion, we do need a biopsy, where we can get more tissue in order to determine what the patient's illness is. I have put in a consult for Dr. Howard for a lung biopsy. COMORBIDITIES: The patient has COPD, alcoholism, cigarette smoking, and a history of head and neck cancer. cc: Clemente Montero MD
[2018-07-17] MEDS: VANCOMYCIN 1,250 MG in NS 250 ML IV SCH (16:35)
--- NOTE | 2018-07-17 21:22 | CONSULTATION ---
DATE OF CONSULTATION: 07/17/2018 Ms. Urbano Mo is a 57-year-old black female who was initially admitted on 07/09/2018 because of abdominal pain, nausea and vomiting. She has also had weight loss. As part of her evaluation, she underwent a CT scan of her chest, abdomen and pelvis and the CT of the chest documented a cavitary lesion in the superior segment of the right lower lobe. This has been followed by Dr. Simon as an outpatient for a year but it appears that it has gotten bigger. She has had bronchoscopy in the past with no firm diagnosis. She has been told she has had cavitary pneumonia in the past. She does have a history of head and neck cancer. PAST MEDICAL HISTORY: She is a heavy smoker as much as 3 packs a day and has COPD. She has hyperlipidemia, prediabetes, iron deficiency anemia, chronic abdominal pain, history of head and neck cancer requiring surgery, it appears that it may have been a tongue cancer. She has chronic anemia, history of AVM in her brain that was clotted using endovascular techniques. History of polysubstance dependence, history of alcohol dependence, bilateral tubal ligation. ALLERGIES: No known drug allergies. SOCIAL HISTORY: She has been a smoker. She has decreased lately. She denies current drug or alcohol use. She has a boyfriend that has been at the bedside. MEDICATIONS: gabapentin, atorvastatin, albuterol, Vyzulta, omeprazole and Dulera. PHYSICAL EXAMINATION: She is afebrile, heart rate 56, blood pressure 92/70, O2 saturation 100%. On exam, Ms. Mo is a slim black female who is awake, in no acute distress cooperative. No jaundice. No oral lesions. Well-healed neck lesion. No palpable lymphadenopathy in the neck or supraclavicular area. Her heart has a regular rate. Her lungs were essentially clear except for some expiratory wheezing. She had mild work of breathing. Her abdomen was soft, nontender, without palpable mass. No costovertebral tenderness. Rectal and vaginal exams not performed. She does have palpable femoral pulses. She has no peripheral edema. Neurologically, no focal deficits. DATA: CT scan of her chest shows a cavitary lesion involving the superior segment of the right lower lobe. There is also question of some other smaller lesions involving the middle and lower lobes on the right. Her white blood cell count is normal. Hematocrit is 39%. Electrolytes are within normal limits. Dr. Denise Keith has seen her for her abdominal symptoms and treating that medically. She has had a CT-guided core needle biopsy of this cavitary wall and it just showed necrotic debris. We were asked to evaluate her for possible open lung biopsy. PLAN: Dr. Robledo has asked for a 2nd CT-guided needle biopsy of this cavitary lesion in hopes of for diagnosis. I think any open lung biopsy you would have to be prepared for a right lower lobe and middle lobe resection and with her heavy smoking history we would have to ask Dr. Robledo if she could tolerate that. She may require pulmonary function tests. She is anxious to know what is going on with her lung. I feel any surgical procedure could be scheduled electively. cc: Mara Howard MD
[2018-07-17] MEDS: PATIENT'S OWN MED BOTH EYES SCH (21:32)
[2018-07-18] MEDS: MAXIPIME 2 GM in NS 100 ML IV SCH ×2 (02:01→13:11)
[2018-07-18] MEDS: PROTONIX IV SCH ×2 (02:02→16:12)
[2018-07-18] MEDS: CLINIMIX E 4.25%-5% SOLUTION 1,000 ML IV SCH ×2 (03:48→10:32)
[2018-07-18] MEDS: DUONEB (A & A) INH SCH ×5 (05:45→21:33)
[2018-07-18] MEDS: ZOFRAN IV PRN ×3 (07:49→20:34)
[2018-07-18] MEDS: MORPHINE IV PRN ×3 (07:50→20:34)
[2018-07-18] MEDS: LEVSIN-SL SL SCH ×4 (08:00→20:34)
[2018-07-18] MEDS: NICODERM PATCH TD SCH (08:00)
[2018-07-18] MEDS: DIFLUCAN PO SCH (08:00)
[2018-07-18] MEDS: TOPAMAX PO SCH (08:00)
[2018-07-18] MEDS: LACTULOSE PO SCH ×2 (08:01→20:34)
--- NOTE | 2018-07-18 08:36 | Diag Imaging Result Doc PS360 ---
EXAM: CHEST-1 VIEW INDICATION: SOB TECHNIQUE: One view COMPARISON: 07/16/2018 FINDINGS: The cavitary mass in the right upper lobe as well as the ill-defined infiltrate at the medial right lower lung zone are grossly stable. No new consolidation is identified. Cardiac silhouette is stable. IMPRESSION: Stable chest. Electronically signed by Linus Gutierrez 07/18/2018 8:34 AM
[2018-07-18] MEDS: VANCOMYCIN 1,250 MG in NS 250 ML IV SCH (10:24)
[2018-07-18] MEDS: LOVENOX SUBQ SCH (10:32)
--- NOTE | 2018-07-18 11:17 | PROGRESS NOTE ---
DATE: 07/18/2018 SUBJECTIVE: Patient's headache is better. Her right shoulder is still giving her quite a bit of pain. She understands that she will need another biopsy, and I think they will plan on doing that on Friday for the right upper lung cavitary lesion. OBJECTIVE: Vital Signs: Temperature 97.7 degrees, pulse 77, respirations 18, blood pressure 102/71. Eyes: Pupils are equal and round. Lungs: Clear in all lung cooper. Cardiovascular exam: Regular rhythm and rate without murmur or S3. Abdomen: Soft. Skin: Warm and dry. : Urine output 3700 mL. X-RAYS: Chest x-ray from today this morning: Cavitary mass right upper lobe, as well as ill- defined infiltrate in the medial right lower lung zone, both are stable. ASSESSMENT AND PLAN: 1. I think the plan is to do am open lung biopsy and may be prepared to do middle lobe resection with her heavy smoking history. See if she will tolerate that. May require some pulmonary function tests. 2. Cavitary lung lesion, right lower lung. Unfortunately, needle biopsy did not get a definitive diagnosis. Continue to treat for infection with cefepime and vancomycin. The patient is also taking fluconazole, cefepime and vancomycin. This is the eighth day of treatment, and fluconazole is on the fourth day of treatment. 3. Right shoulder discomfort; some tendinitis, bursitis. 4. Underlying chronic obstructive pulmonary disease. History of smoking, history of alcoholism, and history of head and neck cancer, aware. Continue present orders. cc: Akil Maldonado MD
[2018-07-18] MEDS ORDERED: TYLENOL PO PRN (11:29)
--- NOTE | 2018-07-18 14:15 | PROGRESS NOTE ---
DATE: 07/18/2018 SUBJECTIVE: Ms. Urbano Mo appears to be comfortable this morning. She has no shortness of breath. She is awake and cooperative. She is tolerating a GI soft diet. Needle aspiration of her cavitary lesion, superior segment of her right lower lobe was nondiagnostic. I think if we move toward surgery that we should be prepared for a right lower lobe lung resection even including her middle lobe. Because of her serious smoking history, we need to be sure she could tolerate that. She says that she can walk up 2 flights of stairs without shortness of breath. We may need pulmonary function tests. I will discuss her films with Dr. Rowell on Friday. cc: Mara Howard MD
[2018-07-18] MEDS: PATIENT'S OWN MED BOTH EYES SCH (20:34)
[2018-07-19] MEDS: MAXIPIME 2 GM in NS 100 ML IV SCH ×3 (00:24→11:39)
[2018-07-19] MEDS ORDERED: NS 500 ML IV ONE ×2 (04:00→20:17)
[2018-07-19] MEDS: ZOFRAN IV PRN ×3 (04:17→21:04)
[2018-07-19] MEDS: MORPHINE IV PRN ×3 (04:17→21:04)
[2018-07-19] MEDS: CLINIMIX E 4.25%-5% SOLUTION 1,000 ML IV SCH ×2 (04:50→11:47)
[2018-07-19] MEDS: NS 500 ML ONE ×2 (04:52→21:08)
[2018-07-19] MEDS: VANCOMYCIN 1,250 MG in NS 250 ML IV SCH ×2 (05:30→23:18)
[2018-07-19] MEDS: PROTONIX IV SCH ×2 (05:30→16:09)
[2018-07-19] MEDS: DUONEB (A & A) INH SCH ×4 (06:15→23:15)
[2018-07-19] MEDS: LEVSIN-SL SL SCH ×4 (09:07→21:05)
[2018-07-19] MEDS: LACTULOSE PO SCH ×2 (09:07→21:05)
[2018-07-19] MEDS: TOPAMAX PO SCH (09:08)
[2018-07-19] MEDS: DIFLUCAN PO SCH (09:08)
[2018-07-19] MEDS: LOVENOX SUBQ SCH (09:09)
[2018-07-19] MEDS: NICODERM PATCH TD SCH (09:11)
--- NOTE | 2018-07-19 13:58 | PROGRESS NOTE ---
DATE: 07/19/2018 SUBJECTIVE: Ms. Mo appears more comfortable. She says her headache is resolved and her right shoulder feels a little better. She did get some rest. She is eating a little bit. Overall feels a little better. OBJECTIVE: Vital signs: Temperature 97.7 degrees, pulse 57, respirations 14, blood pressure 96/62. HEENT: Pupils are equal and round. Lungs: Clear in all lung cooper. Cardiovascular: Regular rhythm and rate without murmur or S3. Abdomen: Soft. Skin: Warm and dry. Urine output is 2 L. ASSESSMENT AND PLAN: 1. Plan is to try to look at the cavitary lesion in the superior segment of the right lower lobe and right lower lobe resection, will prepare for that. May need the middle lobe resected as well. Trying to determine what the pathology is of the cavitary lesion. 2. Right shoulder discomfort, tendinitis and bursitis. That seems to be a little better. 3. Underlying chronic obstructive pulmonary disease. She seems to have good air flow and good gas exchange. 4. History of alcoholism in the past. 5. History of head and neck cancer. Aware. 6. Looking at her orders, I do not see any change. She is on cefepime 2 g IV q.12. She is on vancomycin 1250 mg q.18 hours. She is on fluconazole 200 mg a day. cc: Akil Maldonado MD
[2018-07-19] MEDS: PATIENT'S OWN MED BOTH EYES SCH (21:09)
[2018-07-20] MEDS: PROTONIX IV SCH ×2 (02:01→16:48)
[2018-07-20] MEDS: MAXIPIME 2 GM in NS 100 ML IV SCH ×2 (02:01→12:34)
[2018-07-20] MEDS: DUONEB (A & A) INH SCH ×4 (03:33→22:40)
[2018-07-20] MEDS: CLINIMIX E 4.25%-5% SOLUTION 1,000 ML IV SCH ×3 (05:31→14:09)
[2018-07-20 06:50] LABS: BASO# 0.04 X1000 (0.0-0.2); BASO% 0.6 % (0.0-0.8); EOS# 0.39 X1000 (0.0-0.7); HEMATOCRIT 31.7 % (37.0-47.0); IMM GRAN# 0.04 X1000 (0.0-0.04); IMM GRAN% 0.6 % (0.0-0.5); LYMPH# 1.13 X1000 (1.2-3.4); LYMPH% 17.5 % (20.5-51.1); MCH 26.5 PG (27-31); MCHC 31.5 g/dL (33-37); MCV 83.9 FL (81-99); MONO# 0.54 X1000 (0.11-0.59); MONO% 8.3 % (1.7-9.3); MPV 9.1 FL (7.4-10.4); NEUT# 4.33 X1000 (1.4-6.5); PLT 573 X1000 (130-400); RBC 3.78 XMIL (4.2-5.4); RDW 14.7 % (11.5-14.5); WBC 6.47 X1000 (4.8-10.8)
[2018-07-20 06:57] LABS: INR 1.07; PROTIME 14.7 Seconds (11.0-16.0)
[2018-07-20 07:05] LABS: AGAP 13; BUN 18 mg/dL (8-22); CALCIUM 9.4 mg/dL (8.8-10.2); CHLORIDE 101 mmol/L (98-107); COSMO 275; CREATININE 0.9 mg/dL (0.5-0.9); ESTIMATED GFR > 60; GLUCOSE 92 mg/dL (70-104); POTASSIUM 4.5 mmol/L (3.5-5.1); SODIUM 137 mmol/L (136-145); TCO2 23 mmol/L (25-35)
[2018-07-20] MEDS: MORPHINE IV PRN ×4 (07:39→21:32)
[2018-07-20] MEDS: ZOFRAN IV PRN (07:40)
[2018-07-20] MEDS: DIFLUCAN PO SCH (09:16)
[2018-07-20] MEDS: LEVSIN-SL SL SCH ×4 (09:17→21:31)
[2018-07-20] MEDS: LACTULOSE PO SCH ×2 (09:17→21:32)
[2018-07-20] MEDS: TOPAMAX PO SCH (09:17)
[2018-07-20] MEDS: LOVENOX SUBQ SCH (09:17)
[2018-07-20] MEDS: NICODERM PATCH TD SCH (09:17)
[2018-07-20] MEDS ORDERED: NS 250 ML ONE (10:16)
--- NOTE | 2018-07-20 10:48 | INFECTIOUS DISEASE PROGRESS NO ---
DATE: 07/20/2018 PRESENT ILLNESS: The patient has a right upper lobe cavitary lung lesion and an infiltrate in the lower part of the right lung. MEDICATIONS: The patient has been on cefepime and vancomycin for 10 days and fluconazole for 6 days. PHYSICAL EXAMINATION: Vital Signs: Temperature is 98.3 degrees, pulse 76, respirations 14, blood pressure 105/63. General: This is a chronically ill-appearing middle-aged female. She is in no acute distress. Head/eyes/ears/nose/throat: She can hear my spoken words and see near objects. She does not have any white patches on her tongue. Neck: No meningismus. Lungs: Clear to auscultation. Cardiovascular: Heart rate is regular. Abdomen: Soft and nontender. Neurologic: Patient is alert. She can move her extremities. There is no tremor. Patient does not have any motor or sensory loss at this time. LABORATORY AND X-RAY: Chest x-ray shows stable right upper lobe cavitary mass and the lower right lung infiltrate. The CBC shows a white count of 6470, hemoglobin 10 and platelet count 573,000. Creatinine is 0.9. GFR is greater than 60. ASSESSMENT AND PLAN: 1. Patient has a cavitary mass and also an infiltrate in the lower part of the right lung. A needle biopsy did not give a definitive answer. Therefore, I have consulted Dr. Howard about doing an open lung biopsy. 2. Comorbidities: The patient has COPD, alcoholism, cigarette smoking, and history of head and neck cancer. cc: Clemente Montero MD
[2018-07-20] MEDS ORDERED: SODIUM CHLORIDE 0.9% 10 ML ONE (12:11)
--- NOTE | 2018-07-20 14:11 | PROGRESS NOTE ---
DATE: 07/20/2018 SUBJECTIVE: Ms. Mo is having a good day. Her brother was here to visit her. Her is here as well. She is scheduled to have her right lung tissue biopsy. She remains afebrile. OBJECTIVE: Vital signs: Temperature 98.3 degrees, pulse 54, respirations 14, blood pressure 105/63. HEENT: Pupils are equal and round. Lungs: Clear in all lung cooper. Cardiovascular: Regular rhythm and rate without murmur or S3. Abdomen: Soft. Skin: Warm and dry. Urine output is 3,300 mL. ASSESSMENT AND PLAN: 1. Right upper lobe cavitary lesion and infiltrate in the lower part of the right lung. Continue cefepime and vancomycin. She is scheduled for a tissue biopsy today. White count 6,470, platelet count 573,000, hemoglobin 10. Creatinine 0.9. 2. Right shoulder discomfort, tendinitis, bursitis. That has improved. 3. Underlying chronic obstructive pulmonary disease. Good air and gas exchange at this time. 4. History of alcoholism in the past. 5. History of neck cancer. 6. Review of orders. I do not see any change. She is on GI prophylaxis. cc: Akil Maldonado MD
[2018-07-20] MEDS: VANCOMYCIN 1,250 MG in NS 250 ML IV SCH (16:50)
--- NOTE | 2018-07-20 21:17 | PULMONOLOGY PROGRESS NOTE ---
DATE: 07/20/2018 SUBJECTIVE: Patient reports she is having a good day. She is tolerating some p.o. intake. She has had no difficulty over the weekend. The patient was scheduled to undergo a CT-guided biopsy on Friday. Dr. Lange reviewed the films and because. Previous biopsy was unsuccessful he did not believe a 2nd attempt would be of value and the procedure was canceled. OBJECTIVE: The patient has been afebrile for the last 7 days. Blood pressure 115/72, heart rate 72, respiratory rate 18, oxygen saturation 100% on room air.HEENT: Pupils are equal and reactive. Oropharynx is clear. Neck: Is supple. Chest: Reveals good air entry bilaterally without wheezing or rhonchi. Cardiac: Regular rate. Normal S1, normal S2. Abdomen: Soft and without hepatosplenomegaly. Extremities: Without edema. LABORATORIES: No new microbiology data. PFTs have been ordered but the order did not reach the PFT lab until this afternoon. IMPRESSION: A 57-year-old with history of head and neck cancer, thick wall cavity predominantly in the right lower lobe, ongoing tobacco use, weight loss, and bowel dysfunction. The patient has remained afebrile for the last week. She has had no leukocytosis during this hospitalization. The thick-walled cavity was biopsied and revealed necrosis with no organs identified, but due to the necrosis a definitive diagnosis could not be made. The patient has been on antibiotics since admission and the chest x-ray between 07/11/2018 and 07/18/2018 are nearly identical despite antibiotics. Etiology for this cavitary lesion is not clear. Dr. Montero has requested surgical biopsy. Dr. Howard has reviewed the case and is reviewing the scans with Dr. Rowell. RECOMMENDATIONS: 1. Obtain pulmonary function studies to evaluate potential for resection. The cavity is in the apical portion of the right lower lobe but the majority of the right lower lobe appears to be intact without disease. 2. Continue antibiotics per Infectious Disease. 3. Additional plans pending results of PFTs. cc: Christiano Robledo MD
[2018-07-20] MEDS: PATIENT'S OWN MED BOTH EYES SCH (21:32)
--- NOTE | 2018-07-20 23:53 | GENERAL SURGERY PROGRESS NOTE ---
DATE: 07/20/2018 I have been asked to see Ms. Mo about a possible resection of her lung lesion. She was admitted with a cavitary lesion of the superior dorsal segment of the right lower lobe. She also has mediastinal lymph node visible on CT scan. Percutaneous biopsy apparently was nonproductive. She has a history of head and neck cancer. The plan will be to do a mediastinoscopy with biopsy to check the mediastinal node first, and then if it turns out to be benign, we will plan to proceed within 24 hours, hopefully with a thoracotomy and open lung biopsy, and possible resection. I have discussed this with the family. They understand. We tentatively have this mediastinoscopy schedule for , the . cc: Jamin Rowell MD
[2018-07-21] MEDS: PROTONIX IV SCH ×2 (02:41→16:15)
[2018-07-21] MEDS: MAXIPIME 2 GM in NS 100 ML IV SCH ×2 (02:41→12:38)
[2018-07-21] MEDS: MORPHINE IV PRN ×5 (02:41→21:05)
[2018-07-21] MEDS: DUONEB (A & A) INH SCH ×4 (03:44→22:25)
[2018-07-21] MEDS: ZOFRAN IV PRN (06:48)
[2018-07-21 07:36] LABS: HEMATOCRIT 30.7 % (37.0-47.0); HEMOGLOBIN 9.8 g/dL (12.0-16.0); MCH 26.7 PG (27-31); MCHC 31.9 g/dL (33-37); MCV 83.7 FL (81-99); MPV 9.2 FL (7.4-10.4); RBC 3.67 XMIL (4.2-5.4); RDW 14.7 % (11.5-14.5); WBC 7.12 X1000 (4.8-10.8)
[2018-07-21 07:52] LABS: AGAP 11; BUN 18 mg/dL (8-22); CALCIUM 9.7 mg/dL (8.8-10.2); CHLORIDE 99 mmol/L (98-107); COSMO 272; CREATININE 0.6 mg/dL (0.5-0.9); ESTIMATED GFR > 60; GLUCOSE 95 mg/dL (70-104); POTASSIUM 4.7 mmol/L (3.5-5.1); SODIUM 135 mmol/L (136-145); TCO2 25 mmol/L (25-35)
[2018-07-21] MEDS: NICODERM PATCH TD SCH (09:10)
[2018-07-21] MEDS: TOPAMAX PO SCH (09:11)
[2018-07-21] MEDS: DIFLUCAN PO SCH (09:11)
[2018-07-21] MEDS: LACTULOSE PO SCH ×2 (09:11→21:03)
[2018-07-21] MEDS: LOVENOX SUBQ SCH (09:11)
[2018-07-21] MEDS: LEVSIN-SL SL SCH ×4 (09:11→21:05)
[2018-07-21] MEDS: CLINIMIX E 4.25%-5% SOLUTION 1,000 ML IV SCH ×2 (10:18→17:59)
[2018-07-21] MEDS: VANCOMYCIN 1,250 MG in NS 250 ML IV SCH (10:19)
[2018-07-21] MEDS: PATIENT'S OWN MED BOTH EYES SCH (21:05)
--- NOTE | 2018-07-21 21:18 | PROGRESS NOTE ---
DATE: 07/21/2018 SUBJECTIVE: The patient is resting comfortably. She complains of pain in her right shoulder but otherwise has no other complaints. OBJECTIVE: Vital Signs: Temperature 98.1 degrees, blood pressure 105/62, heart rate 85, respirations 22, O2 saturations 100% on room air. General: This is a elderly female lying in bed in no acute distress. Heart: S1, S2 normal. Regular rate and rhythm. Lungs: Equal air entry bilaterally. No crackles, no rales. Abdomen: Positive bowel sounds. Soft, nontender, nondistended. Extremities: No edema, no cyanosis. Neuro: The patient is alert and oriented x3. LABS: White blood cell count 7, hemoglobin 9.8, hematocrit 30, platelets 527, 000, sodium 135, potassium 4.7, chloride 99, CO2 25, BUN 18, creatinine 0.6, glucose 95. ASSESSMENT AND PLAN: 1. Right upper lobe cavitary lesion. Continue with antibiotic therapy as directed by Dr. Montero. 2. Mediastinal lymph node. The patient is scheduled for mediastinoscopy on . 3. Chronic obstructive pulmonary disease. Stable. 4. Gastroesophageal reflux disease. Continue on omeprazole. 5. Deep vein thrombosis prophylaxis. Continue on Lovenox. cc: Rhiannon Mars MD MTDD
--- NOTE | 2018-07-21 22:31 | INFECTIOUS DISEASE PROGRESS NO ---
DATE: 07/21/2018 PRESENT ILLNESS: The patient has a right upper lobe cavitary lung lesion and an infiltrate in the lower part of the right lung. There also is mediastinal adenopathy. MEDICATIONS: The is the 11th day of treatment with vancomycin and cefepime and the 7th day of treatment with fluconazole. PHYSICAL EXAMINATION: Vital Signs: Temperature is 98.1 degrees, pulse 85, respirations 22, blood pressure 105/62. General: This is a chronically ill-appearing middle-aged female. She is in no acute distress. Head/eyes/ears/nose/throat: She can hear my spoken words and see near objects. She does not have any white patches on her tongue. Neck: No meningismus. Lungs: Clear to auscultation. Cardiovascular: Heart rate is regular. Abdomen: Soft and nontender. Neurologic: The patient is alert. She ambulates without difficulty. There is no tremor. LAB AND X-RAY: There is no new radiographic study. Patient's CBC shows a white count of 7120, hemoglobin 9.8, and platelet count of 527,000. Creatinine is 0.6, and GFR is greater than 60. ASSESSMENT AND PLAN: Patient has cavitary mass lesion and also an infiltrate in the lower part of the right lung and mediastinal adenopathy. Dr. Rowell 2 days from today is going to get a biopsy from the lymph node and possibly from the lung and resect the cavitary lesion. COMORBIDITIES: Chronic obstructive pulmonary disease, alcoholism, cigarette smoking, and a history of head and neck cancer. cc: Clemente Montero MD
--- NOTE | 2018-07-22 01:32 | GENERAL SURGERY PROGRESS NOTE ---
DATE: 07/21/2018 Ms. Mo is doing about the same. We will plan a mediastinoscopy with biopsy on . If I get a preliminary report, then hopefully I can proceed with a right thoracotomy and resection of the mass, possible lobectomy, for Friday. I have discussed this with her. She agrees. cc: Jamin Rowell MD
[2018-07-22] MEDS: MAXIPIME 2 GM in NS 100 ML IV SCH ×2 (01:46→13:24)
[2018-07-22] MEDS: MORPHINE IV PRN ×4 (03:09→18:38)
[2018-07-22] MEDS: PROTONIX IV SCH ×2 (03:09→14:08)
--- NOTE | 2018-07-22 03:16 | PULMONOLOGY PROGRESS NOTE ---
DATE: 07/21/2018 SUBJECTIVE: Patient reports she has had a good day. She denies cough or sputum production. OBJECTIVE: Vital Signs: The patient has been afebrile for the last 24 hours. Blood pressure 105/62, heart rate 85, respiratory rate 22, oxygen saturation 100% on room air. HEENT: Pupils are equal and reactive. Oropharynx is clear. Neck: Supple. Chest: Reveals good air entry bilaterally without wheezing or rhonchi. Cardiac: S1, S2. Abdomen: Soft and without hepatosplenomegaly. Extremities: Without edema. LABORATORIES: Pulmonary function study performed yesterday reveals nonspecific reduction in the forced vital capacity. She has normal FEV1 and essentially normal lung volumes. She does have moderate reduction in diffusion capacity. IMPRESSION: 1. A 57-year-old with cavitary lung disease. 2. Mediastinal adenopathy. 3. History of head and neck cancer with a thick-walled cavity in the right lower lobe. Biopsy of this lesion was nondiagnostic, but did reveal necrosis. The patient has been evaluated by General Surgery. Dr. Rowell plans on performing a mediastinoscopy to remove a precarinal lymph node on . If this is negative for malignancy, resection of the cavitary lesion is anticipated. PLAN: 1. Continue antibiotics under the direction of Dr. Clemente Montero. 2. Smoking cessation education has been discussed and recommended again today. 3. Anticipate mediastinoscopy on 07/23/2018. cc: Christiano Robledo MD
[2018-07-22] MEDS: DUONEB (A & A) INH SCH ×4 (03:33→22:35)
[2018-07-22] MEDS: VANCOMYCIN 1,250 MG in NS 250 ML IV SCH ×2 (04:27→21:07)
[2018-07-22 07:09] LABS: HEMATOCRIT 33.7 % (37.0-47.0); HEMOGLOBIN 10.8 g/dL (12.0-16.0); MCH 26.6 PG (27-31); MPV 9.1 FL (7.4-10.4); RBC 4.06 XMIL (4.2-5.4); RDW 14.5 % (11.5-14.5); WBC 5.65 X1000 (4.8-10.8)
[2018-07-22 07:47] LABS: AGAP 13; BUN 17 mg/dL (8-22); CALCIUM 9.2 mg/dL (8.8-10.2); CHLORIDE 98 mmol/L (98-107); COSMO 273; CREATININE 0.7 mg/dL (0.5-0.9); ESTIMATED GFR > 60; GLUCOSE 88 mg/dL (70-104); POTASSIUM 4.4 mmol/L (3.5-5.1); SODIUM 136 mmol/L (136-145); TCO2 25 mmol/L (25-35)
[2018-07-22] MEDS ORDERED: SODIUM CHLORIDE 0.9% 20 ML ONE (09:35)
[2018-07-22] MEDS: LEVSIN-SL SL SCH ×4 (10:43→21:07)
[2018-07-22] MEDS: LACTULOSE PO SCH ×2 (10:43→21:08)
[2018-07-22] MEDS: DIFLUCAN PO SCH (10:44)
[2018-07-22] MEDS: LOVENOX SUBQ SCH (10:44)
[2018-07-22] MEDS: NICODERM PATCH TD SCH (10:44)
[2018-07-22] MEDS: TOPAMAX PO SCH (10:44)
[2018-07-22] MEDS: PATIENT'S OWN MED BOTH EYES SCH (21:07)
[2018-07-22] MEDS: ZOFRAN IV PRN (21:07)
--- NOTE | 2018-07-23 00:13 | PROGRESS NOTE ---
DATE: 07/22/2018 SUBJECTIVE: The patient is resting comfortably in bed. No acute events noted overnight. OBJECTIVE: Vital Signs: Temperature 98 degrees, blood pressure 100/70, heart rate 82, respirations 16, O2 saturation 98% on room air. General: This is an elderly female, lying in bed, in no acute distress. Heart: S1, S2 normal. Regular rate and rhythm. Lungs: Clear to auscultation bilaterally. Abdomen: Positive bowel sounds. Soft, nontender, nondistended. Extremities: No edema, no cyanosis. Neurologic: The patient is alert and oriented x3. LABS: White blood cell count 5.6, hemoglobin 10, hematocrit 33, platelets 494,000. Sodium 136, potassium 4.4, chloride 98, CO2 25, BUN 17, creatinine 0.7, glucose 88. ASSESSMENT AND PLAN: 1. Cavitary pneumonia. Continue with antibiotic regimen, as directed by Dr. Montero. 2. Mediastinal adenopathy. The patient will be taken to the OR tomorrow for a mediastinoscopy. 3. Chronic obstructive pulmonary disease. Stable. 4. Gastroesophageal reflux disease. Continue on Protonix. 5. Deep vein thrombosis prophylaxis. Will hold the Lovenox for the anticipated procedure tomorrow. cc: Rhiannon Mars MD
[2018-07-23] MEDS: PROTONIX IV SCH ×2 (02:10→15:25)
[2018-07-23] MEDS: MAXIPIME 2 GM in NS 100 ML IV SCH ×2 (02:10→13:59)
[2018-07-23] MEDS: MORPHINE IV PRN ×3 (02:13→18:39)
[2018-07-23] MEDS: DUONEB (A & A) INH SCH ×4 (03:21→21:06)
[2018-07-23 06:16] LABS: HEMATOCRIT 31.9 % (37.0-47.0); HEMOGLOBIN 10.3 g/dL (12.0-16.0); MCHC 32.3 g/dL (33-37); MCV 83.5 FL (81-99); MPV 8.9 FL (7.4-10.4); RBC 3.82 XMIL (4.2-5.4); RDW 14.8 % (11.5-14.5); WBC 5.39 X1000 (4.8-10.8)
[2018-07-23 06:33] LABS: AGAP 13; BUN 15 mg/dL (8-22); CALCIUM 9.6 mg/dL (8.8-10.2); CHLORIDE 102 mmol/L (98-107); COSMO 276; CREATININE 0.7 mg/dL (0.5-0.9); ESTIMATED GFR > 60; GLUCOSE 90 mg/dL (70-104); POTASSIUM 4.2 mmol/L (3.5-5.1); SODIUM 138 mmol/L (136-145); TCO2 23 mmol/L (25-35)
[2018-07-23] MEDS: LACTULOSE PO SCH ×2 (09:34→20:27)
[2018-07-23] MEDS: LEVSIN-SL SL SCH ×4 (09:36→20:27)
[2018-07-23] MEDS ORDERED: FENTANYL ONE (10:16)
[2018-07-23] MEDS ORDERED: DIPRIVAN 1% ONE (10:16)
[2018-07-23] MEDS ORDERED: NORCURON ONE (10:17)
[2018-07-23] MEDS ORDERED: XYLOCAINE-MPF 2% ONE (10:17)
[2018-07-23] MEDS ORDERED: QUELICIN (DOSE) ONE (10:17)
[2018-07-23] MEDS ORDERED: SODIUM CHLORIDE 0.9% 10 ML ONE (10:17)
[2018-07-23] MEDS ORDERED: SENSORCAINE-MPF 0.5%/EPI 1:200,000 ONE (10:56)
[2018-07-23] MEDS ORDERED: NEOSTIGMINE ONE (11:23)
[2018-07-23] MEDS ORDERED: ROBINUL ONE (11:29)
[2018-07-23] MEDS: MORPHINE ONE (12:13)
[2018-07-23] MEDS: LOVENOX SUBQ SCH (13:59)
[2018-07-23] MEDS: NICODERM PATCH TD SCH (13:59)
[2018-07-23] MEDS: TOPAMAX PO SCH (14:00)
[2018-07-23] MEDS: DIFLUCAN PO SCH (14:00)
--- NOTE | 2018-07-23 14:11 | OPERATIVE NOTE ---
PROCEDURE DATE : 07/23/2018 NAME OF THE PROCEDURE: Mediastinoscopy with biopsy. SURGEON: Jamin Rowell MD. GAS ENGINE MECHANIC: Rosy Dumont ORT. PREOPERATIVE DIAGNOSIS: Mediastinal adenopathy. Mass, right lower lobe. POSTOPERATIVE DIAGNOSIS: Mediastinal adenopathy. Mass, right lower lobe. DESCRIPTION OF PROCEDURE: Satisfactory general endotracheal anesthesia was achieved. A small roll was placed under the patient's shoulders. The patient's head was turned to the right. The anterior neck and chest were prepped and draped in sterile fashion. We marked the skin transversely in the suprasternal notch, anesthetized the skin with 0.5% Marcaine with epinephrine, and made a transverse incision. The incision was carried through the platysma. We then stayed in the midline, dissected between the muscles, down to the trachea. We then digitally entered the mediastinum with our index finger. We introduced a mediastinoscope and we carefully passed it along the anterior border of the trachea, into the mediastinum. To the right of the midline, as we entered the mediastinum, we saw a node on the right side. We checked it first with a needle. No blood was retrieved. We then took multiple biopsies from node #1. We then passed the scope further down and saw another small node, considered node #2, from which we sampled and then passed the scope all the way down to essentially the helena. There was some dark tissue ahead of us but we never could actually get to that to get a safe biopsy. I pulled the scope back, saw another small node that I removed. So, we took samples from three nodes. Hemostasis was satisfactory. We then pulled the scope back and removed it. We closed the strap muscles in the midline with interrupted 3-0 Polysorb. The platysma was reapproximated with interrupted 3-0 Polysorb. The skin was closed with a 4-0 Polysorb, subcuticular stitch. Telfa and sterile OpSite was applied. She tolerated it well and was sent to the recovery room in satisfactory condition. cc: Jamin Rowell MD
[2018-07-23] MEDS: FIORICET PO PRN (14:14)
[2018-07-23] MEDS: VANCOMYCIN 1,250 MG in NS 250 ML IV SCH (15:25)
--- NOTE | 2018-07-23 19:20 | PROGRESS NOTE ---
DATE: 07/23/2018 SUBJECTIVE: The patient is resting comfortably in bed. No acute events noted overnight. OBJECTIVE: Vital Signs: Temperature 98.6, blood pressure 113/77, heart rate 77, respirations 18, O2 sats 94% on room air. General: This is a chronically ill-appearing elderly female lying in bed in no acute distress. Heart: S1, S2 normal. Regular rate and rhythm. Lungs: Equal air entry bilaterally. No crackles. No rales. Abdomen: Positive bowel sounds. Soft, nontender, nondistended. Extremities: No edema, no cyanosis. Neurologic: The patient is alert and oriented x 3. LABS: Reviewed. ASSESSMENT AND PLAN: 1. Cavitary lung infection. Continue with antibiotic therapy. The patient is scheduled to undergo a lung biopsy tomorrow. 2. Status post mediastinoscopy with a biopsy. The pathology is currently pending. 3. COPD. Stable. 4. GERD. Continue on Protonix. cc: Rhiannon Mars MD
[2018-07-23] MEDS: PERIDEX MT SCH (20:27)
[2018-07-23] MEDS: NORCO-7.5 PO PRN (20:47)
[2018-07-23] MEDS: PATIENT'S OWN MED BOTH EYES SCH (20:49)
--- NOTE | 2018-07-23 22:50 | INFECTIOUS DISEASE PROGRESS NO ---
DATE: 07/23/2018 PRESENT ILLNESS: The patient has a right upper lobe cavitary lung lesion and an infiltrate in the lower part of the lung. She also has mediastinal adenopathy. Today, she had mediastinoscopy and biopsy of the mediastinal nodes. MEDICATIONS: This is the 13th day of treatment with vancomycin and cefepime and the 9th day of treatment with fluconazole. PHYSICAL EXAMINATION: Vital Signs: Temperature is 99 degrees, pulse 80, respirations 20, blood pressure 120/70. General: This is a chronically ill-appearing, middle-aged female. She is in no acute distress. She does occasionally have a little bit of pain at the site where the mediastinoscopy scope was inserted. Neck: No meningismus. Thorax: As mentioned above. She is having some pain at the site where the scope was put in. Lungs: Clear to auscultation. Cardiovascular: Heart rate is regular. Abdomen: Soft and nontender. Neurologic: The patient is alert. She is able to move her extremities. There is no tremor. LABORATORY AND X-RAY: CBC today shows a white count of 5390, hemoglobin 10.3, and platelet count 487,000. Creatinine is 0.7. GFR is greater than 60. ASSESSMENT AND PLAN: The patient has a cavitary mass lesion and also infiltrate in the right lung. She also has mediastinoscopy. Hopefully, the biopsy report from the node biopsy today will be back. If it is diagnostic, then no further biopsies will be needed. If it is not, then Dr. Rowell is most likely going to do a thoracotomy and remove the cavitary mass. COMORBIDITIES: Chronic obstructive pulmonary disease, alcoholism, cigarette smoking, and a history of head and neck cancer. cc: Clemente Montero MD
--- NOTE | 2018-07-24 01:27 | PULMONOLOGY PROGRESS NOTE ---
DATE: 07/23/2018 SUBJECTIVE: The patient had a mediastinoscopy earlier today. She reports her throat is slightly sore but she is tolerating liquids without difficulty. She is having no difficulty with breathing. OBJECTIVE: Vital Signs: The patient has been afebrile for the last 24 hours. Blood pressure 112/74, heart rate 82, respiratory rate 16 and unlabored, oxygen saturation 94%. HEENT: Pupils are equal and reactive. Oropharynx is clear. Neck: Reveals surgical incision site for mediastinoscopy. There was some minor blood drainage on the operative site. Chest: Reveals good air entry bilaterally without wheezing or rhonchi. Cardiac: S1 and S2. Abdomen: Soft without hepatosplenomegaly. Extremities: Without edema. LABORATORY DATA: White blood count 5.39, hemoglobin 10.30, platelet count 487,000. Sodium 138, potassium 4.2, chloride 102, bicarbonate 23, BUN 15, creatinine 0.7. IMPRESSION: The patient is a 57-year-old with cavitary lung disease, mediastinal adenopathy, with history of head and neck cancer and ongoing tobacco use. She has had a mediastinoscopy completed. If the lymph nodes are negative, then resection of the cavitary lesion is planned per Dr. Rowell. RECOMMENDATIONS: 1. Review surgical pathology tomorrow morning. 2. Encouraged smoking cessation. 3. Anticipate thoracoscopy/thoracotomy pending results of the mediastinoscopy. cc: Christiano Robledo MD
[2018-07-24] MEDS: MAXIPIME 2 GM in NS 100 ML IV SCH ×2 (02:47→16:18)
[2018-07-24] MEDS: PROTONIX IV SCH ×2 (02:48→16:19)
[2018-07-24] MEDS: MORPHINE ONE ×5 (03:20→14:19)
[2018-07-24] MEDS: ZOFRAN IV PRN (03:20)
[2018-07-24] MEDS: DUONEB (A & A) INH SCH ×4 (03:58→21:45)
[2018-07-24 07:21] LABS: AGAP 12; BUN 11 mg/dL (8-22); CALCIUM 8.9 mg/dL (8.8-10.2); CHLORIDE 99 mmol/L (98-107); COSMO 270; CREATININE 0.6 mg/dL (0.5-0.9); ESTIMATED GFR > 60; GLUCOSE 100 mg/dL (70-104); POTASSIUM 4.1 mmol/L (3.5-5.1); SODIUM 135 mmol/L (136-145); TCO2 24 mmol/L (25-35)
[2018-07-24] MEDS: MORPHINE IV PRN (08:53)
[2018-07-24] MEDS: DIFLUCAN PO SCH (08:54)
[2018-07-24] MEDS: PERIDEX MT SCH ×2 (08:54→21:06)
[2018-07-24] MEDS: TOPAMAX PO SCH (08:54)
[2018-07-24] MEDS: LEVSIN-SL SL SCH ×4 (08:55→20:55)
[2018-07-24] MEDS: LACTULOSE PO SCH ×2 (08:55→21:07)
[2018-07-24] MEDS ORDERED: ROBINUL ONE ×2 (09:55→11:12)
[2018-07-24] MEDS ORDERED: QUELICIN (DOSE) ONE (09:55)
[2018-07-24] MEDS ORDERED: STERILE WATER INJ. ONE (09:57)
[2018-07-24] MEDS ORDERED: SUFENTA ONE (09:57)
[2018-07-24] MEDS ORDERED: NORCURON ONE (09:57)
[2018-07-24] MEDS ORDERED: DIPRIVAN 1% ONE (09:57)
[2018-07-24] MEDS ORDERED: XYLOCAINE-MPF 2% ONE (09:57)
[2018-07-24] MEDS ORDERED: SODIUM CHLORIDE 0.9% 20 ML ONE (09:59)
[2018-07-24] MEDS ORDERED: SENSORCAINE-MPF 0.5%/EPI 1:200,000 ONE (09:59)
[2018-07-24] MEDS ORDERED: KEFZOL 1 GM/D5W 1 GM/50 ML IVPB ONE (10:29)
[2018-07-24] MEDS ORDERED: EXPAREL 1.3% ONE (10:34)
[2018-07-24] MEDS ORDERED: MARCAINE 0.25% PF ONE (10:34)
[2018-07-24] MEDS ORDERED: SODIUM CHLORIDE 0.9% 10 ML ONE (10:54)
[2018-07-24] MEDS ORDERED: NEO-SYNEPHRINE ONE (10:54)
[2018-07-24] MEDS: VANCOMYCIN 1,250 MG in NS 250 ML IV SCH (11:10)
[2018-07-24] MEDS ORDERED: ZOFRAN ONE (11:12)
[2018-07-24] MEDS ORDERED: NEOSTIGMINE ONE (11:13)
[2018-07-24 13:21] LABS: URINE SOURCE CATH
[2018-07-24 13:25] LABS: BILIRUBIN URINE NEGATIVE (NEGATIVE); BLOOD URINE NEGATIVE (NEGATIVE); COLOR YELLOW; GLUCOSE URINE NEGATIVE (NEGATIVE); KETONE URINE TRACE mg/dL (NEGATIVE); LEUKOCYTES URINE NEGATIVE (NEGATIVE); NITRITE URINE NEGATIVE (NEGATIVE); PH URINE 5.5; PROTEIN URINE TRACE mg/dL (NEGATIVE); SP GRAVITY URINE 1.021; TURBIDITY URINE CLEAR (CLEAR); UROBILINOGEN URINE NORMAL (NORMAL)
[2018-07-24 13:26] LABS: UR EPITHELIAL CELLS <10 /HPF (<10); URINE BACTERIA NEGATIVE /HPF; URINE RBC <10 /HPF (<10); URINE WBC <10 /HPF (<10)
--- NOTE | 2018-07-24 13:28 | Diag Imaging Result Doc PS360 ---
EXAM: CHEST-PORTABLE HISTORY: post thoracotomy TECHNIQUE: Portable chest COMPARISON: 07/18/2018 FINDINGS: There are now two right-sided chest tubes. There are sutures in the mid right chest and right-sided skin yola. There is a small right pneumothorax. The left lung remains well expanded and clear. No cardiomegaly. No pleural effusions identified. IMPRESSION: Small right pneumothorax with chest tubes in good position. Electronically signed by Fawad Lemos 07/24/2018 1:26 PM
[2018-07-24] MEDS ORDERED: NS 1,000 ML ONE (13:34)
--- NOTE | 2018-07-24 13:34 | OPERATIVE NOTE ---
PROCEDURE DATE: 07/24/2018 PROCEDURE PERFORMED: 1. Right posterolateral thoracotomy, biopsy of right lower lobe mass inferiorly. 2. Partial right lower lobectomy with removal of large cavitary mass. 3. Partial right upper lobectomy with removal of apical blebs. SURGEON: Jamin Rowell MD. BOW MAKER GIFT WRAPPING: Dr. Parikh and Dami Chung RN. PREOPERATIVE DIAGNOSIS: Right lower lobe cavitary mass. POSTOP DIAGNOSIS: 1. Right lower lobe cavitary mass with frozen section evidence of granulomatous disease. 2. Apical blebs. DESCRIPTION OF PROCEDURE: Satisfactory general double-lumen endotracheal anesthesia was achieved. The patient was placed in the decubitus position the right side up secured there. The right posterolateral chest was prepped and draped in a sterile fashion. We made a posterolateral thoracotomy incision, went through the subcutaneous tissue, through the latissimus dorsi muscle, through the serratus anterior muscle. We identified the 6th intercostal space and entered the pleural rind of the chest cavity through the 6th intercostal space. The right lung was then clamped and allowed to deflate. Upon entering the chest cavity we then dissected the intercostal structures away from the 6th rib so that we would not crush them with a rib instrument repairer helper. We then placed our rib instrument repairer helper. We gently opened it between the 6th and 7th ribs. Upon palpation of the lung, the large mass was noted posteriorly primarily in the superior dorsal segment but it was right at the confluence of the horizontal fissure and the oblique fissure so it seemed to just include all 3 lobes because of where it was. There were pleural adhesions that we had to take down with the electrocautery both posteriorly and superiorly. We had to gently tease those adhesions until we could completely mobilize the lung and swing it not only inferiorly but medially. There were apical blebs noted and we took care to avoid them. We then incised the inferior pulmonary ligament to free up the lower lobe as well. In doing that we palpated a marble- sized mass in the lower lobe and so we grasped it with a lung clamp and used a ALFONSO 80 Endo stapler purple load to excise it and sent it for frozen section. We then proceeded to isolate this large mass that is mentioned above. We began using Endo ALFONSO loads purple peripherally and black as we came centrally to excise this mass. We had to remove a portion of the lower lobe superiorly and a portion of the upper lobe inferiorly in order to remove the mass in toto. The frozen section came back from the smaller lower lobe mass as granulomatous disease. After we finally resected the large mass, we sent it for frozen section as well. At this point, we inflated the right lung to see what we were left with and each lobe, the lower, middle and upper lobe all inflated. The one that seemed to have the biggest struggle was the upper lobe and it did have numerous blebs so I decided to do an apical blebectomy in order to relieve the patient of that space. We used a TA 60 blue green cartridge to staple across that and remove the apical blebs. That specimen was simply sent for permanent section. We then copiously irrigated out the right pleural space. We did place two 28 chest tubes. The medial tube went to the apex, the posterior tube went posteriorly and we added a couple of holes there to help drain the pleural space posteriorly. Hemostasis was satisfactory. Again each lobe middle, upper and lower all could ventilate satisfactorily. The frozen section of the large mass came back again a large intracavitary necrotic granulomatous disease and there was no evidence of malignancy. Before we sent that specimen there was some content of the mass that leaked out. We did culture it and sent it for Gram stain culture, fungal smear and culture and AFB smear and culture. After the 28 chest tubes were placed and we were ventilating the right lung satisfactorily we then proceeded to clean off the periosteum anteriorly, in the midaspect and posteriorly, we drilled holes in the 6th and 7th rib and passed #2 Tycron through the ribs to reapproximate them. I did use some Exparel combined with 0.25 Marcaine and injected it along the course of the 6th intercostal vessels and nerves and in the 7th as well. After reapproximating the ribs we then closed the serratus muscle with a running #1 Polysorb. We injected along the subcutaneous tissue with more Exparel and then along the muscle groups as well. We used a total of 40 mL of the combined Exparel and 0.25 Marcaine. We then closed the latissimus muscle with a 1 Polysorb. The rhomboid was reapproximated with a 1 Polysorb. The subcutaneous tissue was closed with 0 Polysorb and then the skin was closed with yola. Sterile dressing was applied. Chest tubes were attached to Pleur-Evacs. She tolerated procedure satisfactorily, was sent to the recovery room in satisfactory condition. cc: MD Dr. Winston Mobley
[2018-07-24] MEDS ORDERED: MORPHINE PCA ONE (13:55)
[2018-07-24] MEDS ORDERED: NARCAN 0.4 MG in LR 1,000 ML IV PRN (14:02)
[2018-07-24] MEDS ORDERED: LR 1,000 ML IV SCH (14:02)
[2018-07-24] MEDS ORDERED: NARCAN IV PRN (14:02)
[2018-07-24 15:38] LABS: HEMATOCRIT 24.2 % (37.0-47.0); HEMOGLOBIN 7.8 g/dL (12.0-16.0)
[2018-07-24] MEDS: NS 1,000 ML IV SCH (15:45)
--- NOTE | 2018-07-24 15:52 | PROGRESS NOTE ---
DATE: 07/24/2018 SUBJECTIVE: The patient is status post thoracostomy. She has chest tubes in place. OBJECTIVE: Vital Signs: Temperature 98.6 degrees, blood pressure 134/93, heart rate 90, respirations 20, O2 saturation 100%. General: Is a chronically ill-appearing elderly female lying in bed in no acute distress. Heart: S1, S2 normal. Lungs: Diminished breath sounds bilaterally. No wheezing, no rales. Abdomen: Positive bowel sounds. Soft, nontender, nondistended. Extremities: No edema, no cyanosis. Neuro: The patient is alert and oriented x3. LABS: Reviewed. ASSESSMENT AND PLAN: 1. Status post posterior lateral thoracostomy with biopsy of the right lower lobe mass with partial right upper and lower lobectomy. Management as per the general surgeon. 2. Lung infection. Continue with antibiotic therapy as directed by Dr. Montero. 3. Gastrointestinal prophylaxis. Continue with IV Protonix. 4. Deep vein thrombosis prophylaxis. Continue with SCDs. cc: Rhiannon Mars MD
[2018-07-24] MEDS: NICODERM PATCH TD SCH (17:15)
[2018-07-24] MEDS ORDERED: NS 500 ML ONE (17:45)
[2018-07-24] MEDS: PHENERGAN IV PRN (21:14)
--- NOTE | 2018-07-24 21:48 | GENERAL SURGERY PROGRESS NOTE ---
DATE: 07/24/2018 TIME SEEN: At 5 o'clock in the afternoon. SUBJECTIVE/OBJECTIVE: Ms. Mo is lying comfortably in the bed. She is awake and alert. Her heart rate is 93. Blood pressure is 130/70. DIAGNOSTIC DATA: Her chest x-ray postoperatively looked okay. She has fluctuation in her chest tubes with a small air leak. Her postoperative hemoglobin 7.8, hematocrit 24.2 PLAN: The plan will be to transfuse her 1 unit of packed cells. She is to continue with good pulmonary toilet postoperatively. We will get a chest x-ray in the morning, along with repeat labs. Dr. Birmingham is covering the weekend. cc: Jamin Rowell MD
--- NOTE | 2018-07-24 23:01 | PULMONOLOGY PROGRESS NOTE ---
DATE: 07/24/2018 SUBJECTIVE: The patient reports she is sore. She had a thoracotomy with resection earlier today. Preliminary frozen sections revealed no evidence of malignancy. OBJECTIVE: Blood pressure 128/90, heart rate 93, respiratory rate 22, oxygen saturation 100% on nasal cannula.HEENT: Pupils are equal and reactive. Oropharynx is clear. Neck: Is supple. Chest: Reveals 2 chest tubes in the right hemithorax. Good breath sounds are present. There are small leaks noted in the chest tubes. Cardiac: Regular rate. Normal S1, normal S2. Abdomen: Soft without hepatosplenomegaly. Extremities: Without edema. LABORATORIES: Chest x-ray reveals small right-sided pneumothorax. IMPRESSION: 57-year-old with progressive cavitary lung mass status post resection. Clinically, she is doing well following thoracotomy. PLAN: 1. Encourage incentive spirometry. 2. Encourage cessation from alcohol use. 3. Encourage smoking cessation. 4. Follow up pathology reports. 5. Chest x-ray tomorrow morning. cc: Christiano Robledo MD
[2018-07-25] MEDS: PERIDEX MT SCH ×5 (00:08→20:40)
[2018-07-25] MEDS: NS 1,000 ML IV SCH ×3 (00:08→20:29)
[2018-07-25] MEDS: PATIENT'S OWN MED BOTH EYES SCH ×2 (01:23→21:00)
[2018-07-25] MEDS: MAXIPIME 2 GM in NS 100 ML IV SCH ×2 (01:23→14:42)
[2018-07-25] MEDS ORDERED: SODIUM CHLORIDE 0.9% 10 ML ONE (02:20)
[2018-07-25] MEDS: PROTONIX IV SCH ×2 (03:08→14:42)
[2018-07-25] MEDS: VANCOMYCIN 1,250 MG in NS 250 ML IV SCH ×3 (03:08→22:00)
[2018-07-25] MEDS: DUONEB (A & A) INH SCH ×4 (03:54→21:20)
[2018-07-25 06:17] LABS: BASO# 0.02 X1000 (0.0-0.2); BASO% 0.1 % (0.0-0.8); EOS# 0.13 X1000 (0.0-0.7); EOS% 0.9 % (0.0-10.0); HEMOGLOBIN 9.6 g/dL (12.0-16.0); IMM GRAN# 0.03 X1000 (0.0-0.04); IMM GRAN% 0.2 % (0.0-0.5); LYMPH# 0.52 X1000 (1.2-3.4); LYMPH% 3.5 % (20.5-51.1); MCH 27.6 PG (27-31); MCHC 33.1 g/dL (33-37); MCV 83.3 FL (81-99); MONO# 0.43 X1000 (0.11-0.59); MONO% 2.9 % (1.7-9.3); MPV 9.1 FL (7.4-10.4); NEUT# 13.63 X1000 (1.4-6.5); NEUT% 92.4 % (42.2-75.2); PLT 341 X1000 (130-400); RBC 3.48 XMIL (4.2-5.4); RDW 14.2 % (11.5-14.5); WBC 14.76 X1000 (4.8-10.8)
[2018-07-25 06:46] LABS: AGAP 12; BUN 6 mg/dL (8-22); CALCIUM 8.4 mg/dL (8.8-10.2); CHLORIDE 100 mmol/L (98-107); COSMO 266; CREATININE 0.5 mg/dL (0.5-0.9); ESTIMATED GFR > 60; GLUCOSE 108 mg/dL (70-104); POTASSIUM 4.1 mmol/L (3.5-5.1); SODIUM 134 mmol/L (136-145); TCO2 22 mmol/L (25-35)
[2018-07-25 07:08] LABS: SEGS 100 % (42-75)
--- NOTE | 2018-07-25 07:08 | Diag Imaging Result Doc PS360 ---
EXAM: CHEST-PORTABLE HISTORY: s/p thoractomy TECHNIQUE: Portable chest single view COMPARISON: 07/24/2018 FINDINGS: No change in the right-sided chest tubes, right-sided PICC line, or right skin yola. Interval decrease in the size of the small right pneumothorax. Increased interstitial markings persist in the medial right lung. Left lung is well expanded and clear. IMPRESSION: Slight decrease in the size of the right-sided pneumothorax, but slight worsening in the right infiltrates. Electronically signed by Fawad Lemos 07/25/2018 7:06 AM
[2018-07-25] MEDS: MORPHINE PCA IV PRN (09:32)
[2018-07-25] MEDS: DIFLUCAN PO SCH (09:42)
[2018-07-25] MEDS: LEVSIN-SL SL SCH ×4 (09:42→20:39)
[2018-07-25] MEDS: TOPAMAX PO SCH (09:42)
[2018-07-25] MEDS: LACTULOSE PO SCH ×2 (09:43→20:38)
--- NOTE | 2018-07-25 10:16 | GENERAL SURGERY PROGRESS NOTE ---
DATE: 07/25/2018 SUBJECTIVE: Patient is still having some issues with pain. OBJECTIVE: Vital Signs: Patient is currently afebrile. Her vital signs stable. General: No acute distress. Resting comfortably. Cardiovascular: Regular rate and rhythm. Lungs: Some coarse sounds noted on the right side. Chest tubes in place, one with an air leak that is continuous, but only mild. LABORATORY: White blood cell count 14, hematocrit 29, platelet count 341. Remainder of labs reviewed. X-ray this morning reviewed. Official report pending. Chest tube seemed to be in good position. ASSESSMENT AND PLAN: A 57-year-old, status post right-sided thoracotomy. Postoperative state: At this time continue pain control. Continue chest tubes. We will monitor her closely. Nothing new to add at this point. cc: Oliver Birmingham MD
[2018-07-25] MEDS: NICODERM PATCH TD SCH (11:00)
--- NOTE | 2018-07-25 14:48 | PULMONOLOGY PROGRESS NOTE ---
DATE: 07/25/2018 SUBJECTIVE: The patient is awake, alert and conversant. She is having some chest wall pain associated with surgery. OBJECTIVE: Vital Signs: The patient has been afebrile for the last 24 hours. Blood pressure 120/80, heart rate 106, respiratory rate 31, oxygen saturation 100% on 3 L per nasal cannula. HEENT: Pupils are equal and reactive. Oropharynx is clear. Neck: Supple. Chest: Reveals 2 chest tubes in the right hemithorax. One chest tube has an air leak, one does not, but does have to-and-fro movement of the fluid in the tube indicating patency. LABORATORIES: White blood count 14.76 hemoglobin 9.6, platelet count 341,000. Sodium 134 potassium 4.1, chloride 100, bicarbonate 22. BUN 6, creatinine 0.5. IMAGING: Chest x-ray reveals good reexpansion of the right lung with mild increased infiltrates. She has a very small pneumothorax. IMPRESSION: A 57 year old with progressive cavitary lung disease status post resection of the cavity. The patient has mild increased infiltrates likely due to reexpansion injury. She has a small pneumothorax. She has acute hypoxemic respiratory failure, which has not been progressive. She has a small air leak noted. RECOMMENDATIONS: 1. Continue incentive spirometry. 2. Continue oxygen for hypoxemic respiratory failure. 3. Recommend discontinuing alcohol to help augment immune function and decrease immune suppression. 4. Smoking cessation has been recommended. 5. Follow up pathology report when available. cc: Christiano Robledo MD
--- NOTE | 2018-07-25 19:20 | PROGRESS NOTE ---
DATE: 07/25/2018 SUBJECTIVE: The patient is resting comfortably in bed. She does complain of pain at the surgical sites where her chest tubes are. OBJECTIVE: Vital Signs: Temperature 98.7 degrees, blood pressure 129/83, heart rate 106, respirations 23, O2 saturations 100% on 3 L nasal cannula, urine output 2.8 L. General: This is a chronically ill-appearing elderly female lying in bed in no acute distress. Heart: S1, S2 normal. Tachycardic. Lungs: Equal breath sounds bilaterally. No crackles, no rales. Abdomen: Positive bowel sounds. Soft, nontender, nondistended. Extremities: No edema, no cyanosis. Neuro: The patient is alert and oriented x3. LABS: White blood cell count 14, hemoglobin 9.6, hematocrit 29, platelets 349,000, sodium 134, potassium 4.1, BUN 6, creatinine 0.5, glucose 108. ASSESSMENT AND PLAN: 1. Status post posterior lateral thoracostomy with biopsy of the right lower lobe mass with partial right upper and lower lobectomy. Management as per the general surgeon and apparatus repair mechanic. 2. Lung infection. Continue with antibiotic therapy. 3. Leukocytosis. Continue to monitor for improvement. 4. Gastrointestinal prophylaxis. Continue on Protonix. 5. Deep vein thrombosis prophylaxis. Continue with SCDs. Start Lovenox when okay with the general surgeon. cc: Rhiannon Mars MD
[2018-07-26] MEDS: MAXIPIME 2 GM in NS 100 ML IV SCH ×2 (02:00→13:21)
[2018-07-26] MEDS: PROTONIX IV SCH ×2 (03:00→15:28)
[2018-07-26] MEDS: DUONEB (A & A) INH SCH ×4 (03:47→21:47)
[2018-07-26] MEDS: MORPHINE PCA IV PRN ×2 (04:15→20:31)
[2018-07-26] MEDS: NS 1,000 ML IV SCH ×2 (05:58→15:28)
--- NOTE | 2018-07-26 07:53 | GENERAL SURGERY PROGRESS NOTE ---
DATE: 07/26/2018 SUBJECTIVE: Reviewed notes from other physicians. The patient seems to be doing okay right now. Official report from the chest x-ray yesterday showed a small apical pneumothorax. OBJECTIVE: Vital Signs: The patient is currently afebrile. Her vital signs have been stable. Her respiratory rate has been somewhat fluctuating around the high 20s to mid 10s. Blood pressure most recently was 98/68. General Examination: Resting. Cardiovascular: Regular rate and rhythm. Lungs/Chest: Chest tube in place. There is an air leak to one of the chest tubes that is continuous. No increased labored breathing. Laboratory: None this morning as of yet. No chest x-ray this morning as of yet. ASSESSMENT AND PLAN: A 57-year-old status post right-sided thoracotomy. Postoperative state. At this time, continue pain control, continue chest tubes. She does have an air leak and a small pneumothorax. We will keep the chest tube to suction for right now given those. Nothing new to add. cc: Oliver Birmingham MD
[2018-07-26] MEDS: NICODERM PATCH TD SCH (08:02)
[2018-07-26] MEDS: LEVSIN-SL SL SCH ×4 (08:02→20:32)
[2018-07-26] MEDS: DIFLUCAN PO SCH (08:02)
[2018-07-26] MEDS: TOPAMAX PO SCH (08:02)
[2018-07-26] MEDS: PERIDEX MT SCH ×3 (08:02→20:31)
[2018-07-26] MEDS: LACTULOSE PO SCH ×2 (08:03→20:31)
--- NOTE | 2018-07-26 09:21 | Diag Imaging Result Doc PS360 ---
EXAM: CHEST-PORTABLE - 07/26/2018 HISTORY: abnormal exam TECHNIQUE: Portable chest COMPARISON: 07/25/2018 FINDINGS: PICC and two right chest tubes remain in place. There is been apparent decrease in right apical pneumothorax. There has been mild increase in infiltrate at the right base. The left lung remains essentially clear. There is no substantial pleural effusion or pneumothorax identified. Heart size is normal. IMPRESSION: Apparent decrease in small pneumothorax at right apex. Mild increase in infiltrate at right base. Electronically signed by Ion Oliva 07/26/2018 9:19 AM
[2018-07-26 11:27] LABS: AGAP 12; BUN 6 mg/dL (8-22); CALCIUM 7.7 mg/dL (8.8-10.2); CHLORIDE 98 mmol/L (98-107); COSMO 260; CREATININE 0.5 mg/dL (0.5-0.9); ESTIMATED GFR > 60; GLUCOSE 101 mg/dL (70-104); POTASSIUM 3.8 mmol/L (3.5-5.1); SODIUM 131 mmol/L (136-145); TCO2 21 mmol/L (25-35)
[2018-07-26 11:32] LABS: BASO# 0.03 X1000 (0.0-0.2); BASO% 0.3 % (0.0-0.8); EOS% 2.7 % (0.0-10.0); HEMATOCRIT 25.9 % (37.0-47.0); HEMOGLOBIN 8.4 g/dL (12.0-16.0); LYMPH# 0.42 X1000 (1.2-3.4); LYMPH% 3.8 % (20.5-51.1); MCH 27.4 PG (27-31); MCHC 32.4 g/dL (33-37); MCV 84.4 FL (81-99); MONO# 0.52 X1000 (0.11-0.59); MONO% 4.7 % (1.7-9.3); MPV 9.1 FL (7.4-10.4); NEUT% 88.5 % (42.2-75.2); PLT 305 X1000 (130-400); RBC 3.07 XMIL (4.2-5.4); RDW 14.5 % (11.5-14.5); WBC 11.17 X1000 (4.8-10.8)
[2018-07-26 12:15] LABS: BANDS 2 % (0-1); EOS 4 % (1-10); LYMPHS 4 % (21-51); MONO 4 % (1-9); SEGS 86 % (42-75)
--- NOTE | 2018-07-26 15:08 | PROGRESS NOTE ---
DATE: 07/26/2018 SUBJECTIVE: The patient is resting comfortably in bed. No acute events noted overnight. OBJECTIVE: Vital Signs: Temperature 98.4, blood pressure 112/78, heart rate 93, respirations 25, O2 sats 100% on 2 L nasal cannula. General: This is a chronically ill-appearing elderly female lying in bed in no acute distress. Heart: S1, S2, normal. Lungs: Equal air entry bilaterally. No wheezing. No rales. Abdomen: Positive bowel sounds. Soft, nontender, nondistended. Extremities: No edema, no cyanosis. Neurologic: The patient is alert and oriented x 3. LABS: White blood cell count 11, hemoglobin 8.4, hematocrit 25, platelets 305,000. Sodium 131, potassium 3.8, BUN 6, creatinine 0.5, glucose 101, calcium 7.7. ASSESSMENT AND PLAN: 1. Status post posterolateral thoracostomy with biopsy of the right lower lobe mass, with partial right upper and lower lobectomy. Management as per the general surgeon and flour blender helper. 2. Apical pneumothorax. The patient has a chest tube in place. 3. Lung infection. Continue with antibiotic therapy. Will await biopsy and culture results. 4. Leukocytosis. Improved. Continue with antibiotic therapy. 5. GI prophylaxis. Continue on Protonix. 6. Nutrition. The patient is not eating very much. Will add Ensure with each meal. 7. DVT prophylaxis. Continue with SCDs. cc: Rhiannon Mars MD
--- NOTE | 2018-07-26 15:27 | PULMONOLOGY PROGRESS NOTE ---
DATE: 07/26/2018 SUBJECTIVE: Patient is awake, alert and conversant. She has a marginal cough effort. She is having some appropriate pain in the right hemithorax following surgery. OBJECTIVE: Vital Signs: The patient has been afebrile for the last 24 hours. Blood pressure 112/78, heart rate 92, respiratory rate 19, oxygen saturation 100% on 2 L per nasal cannula. HEENT: Pupils are equal and reactive. Oropharynx is clear. Neck: Neck is supple. Chest: Reveals two chest tubes in the right hemithorax. She has a small leak from one tube, but no leak from the other. Abdomen: Soft, without hepatosplenomegaly. Extremities: Reveal trace edema. LABORATORIES: Chest x-ray revealed decrease in the small right-sided apical pneumothorax. She has slight increase in infiltrates at the right lung base. Cultures from the right lung are negative to date. White blood count 11.17, hemoglobin 8.4, platelet count 305,000. Sodium 131, potassium 3.8, potassium 3.8, chloride 98, bicarbonate 21, BUN 6, creatinine 0.5. IMPRESSION: A 57-year-old with progressive cavitary lung disease, ongoing tobacco use, history of head and neck cancer, status post surgical resection of the cavity. She has mild acute hypoxemic respiratory failure and may have some re-expansion injury following her surgery, but is otherwise doing well. She has a small pneumothorax and a small air leak. RECOMMENDATION: 1. Continue incentive spirometry. 2. Continue oxygen for hypoxemic respiratory failure. 3. Long-term, the patient is encouraged not to resume alcohol use or tobacco use. 4. Follow up pathology report pending, but this appears to be inflammatory/infectious granulomatous disease and not malignancy. cc: Christiano Robledo MD
[2018-07-26] MEDS: VANCOMYCIN 1,250 MG in NS 250 ML IV SCH (16:08)
[2018-07-26] MEDS: PHENERGAN IV PRN (20:31)
[2018-07-26] MEDS: PATIENT'S OWN MED BOTH EYES SCH (20:32)
[2018-07-27] MEDS: PERIDEX MT SCH ×4 (01:25→20:53)
[2018-07-27] MEDS: NS 1,000 ML IV SCH ×2 (01:36→11:16)
[2018-07-27] MEDS: MAXIPIME 2 GM in NS 100 ML IV SCH ×2 (02:26→13:58)
[2018-07-27] MEDS: PROTONIX IV SCH ×2 (02:27→15:10)
[2018-07-27] MEDS: DUONEB (A & A) INH SCH ×4 (03:29→22:10)
[2018-07-27] MEDS: VANCOMYCIN 1,250 MG in NS 250 ML IV SCH ×2 (04:04→15:10)
[2018-07-27] MEDS: PHENERGAN IV PRN (04:05)
[2018-07-27 06:57] LABS: BASO# 0.03 X1000 (0.0-0.2); BASO% 0.4 % (0.0-0.8); EOS% 7.1 % (0.0-10.0); HEMATOCRIT 24.6 % (37.0-47.0); HEMOGLOBIN 7.9 g/dL (12.0-16.0); LYMPH# 0.63 X1000 (1.2-3.4); LYMPH% 8.9 % (20.5-51.1); MCH 26.9 PG (27-31); MCHC 32.1 g/dL (33-37); MCV 83.7 FL (81-99); MONO# 0.48 X1000 (0.11-0.59); MONO% 6.8 % (1.7-9.3); MPV 9.3 FL (7.4-10.4); NEUT% 76.8 % (42.2-75.2); PLT 318 X1000 (130-400); RBC 2.94 XMIL (4.2-5.4); RDW 14.6 % (11.5-14.5); WBC 7.04 X1000 (4.8-10.8)
[2018-07-27 07:37] LABS: AGAP 9; BUN 5 mg/dL (8-22); CHLORIDE 99 mmol/L (98-107); COSMO 264; CREATININE 0.5 mg/dL (0.5-0.9); ESTIMATED GFR > 60; GLUCOSE 102 mg/dL (70-104); POTASSIUM 3.6 mmol/L (3.5-5.1); SODIUM 133 mmol/L (136-145); TCO2 25 mmol/L (25-35)
[2018-07-27] MEDS: TOPAMAX PO SCH (08:24)
[2018-07-27] MEDS: DIFLUCAN PO SCH (08:24)
[2018-07-27] MEDS: LEVSIN-SL SL SCH ×4 (08:24→20:52)
[2018-07-27] MEDS: LACTULOSE PO SCH ×2 (08:24→21:42)
[2018-07-27] MEDS: NICODERM PATCH TD SCH (08:25)
[2018-07-27] MEDS: MORPHINE IV PRN ×4 (08:30→23:31)
[2018-07-27 08:47] LABS: EOS 8 % (1-10); LYMPHS 10 % (21-51); MONO 12 % (1-9); SEGS 70 % (42-75)
--- NOTE | 2018-07-27 08:47 | INFECTIOUS DISEASE PROGRESS NO ---
DATE: 07/27/2018 SUBJECTIVE: The patient is status post removal of a cavitary mass and also removal of apical blebs. On frozen section of the mass, granulomatous disease was seen according to Dr. Rowell's operative note. MEDICATIONS: This is the 17th day of treatment with cefepime and vancomycin. PHYSICAL EXAMINATION: Vital Signs: Temperature is 99 degrees, pulse 93, respirations 20, blood pressure 126/81. General: This is a chronically ill-appearing, middle-aged female. She is complaining of pain on the right side, where she had her surgery performed last week. Head/eyes/ears/nose/throat: She can hear my spoken words and see near objects. She does not have any white patches on her tongue. Thorax: Patient's incision on the right side has a dressing over it. The dressing is intact also. Also, a chest tube is in place. The patient has a dressing over the incision, where the patient had a mediastinoscopy performed. Lungs: Clear to auscultation. Cardiovascular: Heart rate is regular. Abdomen: Soft and nontender. Neurologic: The patient is awake. She can move her extremities. There is no tremor. LAB AND X-RAY: The patient's CBC shows a white count of 7040, hemoglobin 7.9, and platelet count 318,000. Creatinine 0.5, GFR is greater than 60. Acid-fast smear shows no organisms. Culture of the right lung is negative. On frozen section, granulomatous disease was seen according to Dr. Rowell's note. ASSESSMENT AND PLAN: The patient may have a granulomatous disease such as mycobacterial infection or fungal infection. It should be noted that approximately a year ago, the patient had an extensive workup for acid-fast bacilli and fungal organisms and everything was negative. The part of the lung that was removed, shows no growth on bacterial culture. It appears the patient has an infection in the lung, which is granulomatous in nature as opposed to having a malignancy. For now, I am going to discontinue vancomycin and cefepime because culture from the lung is negative, and she has been on these antibiotics a long time. I am be waiting for the pathology report and further cultures. COMORBIDITIES: Patient has chronic obstructive pulmonary disease, alcoholism, cigarette smoking, and a history of head and neck cancer. cc: Clemente Montero MD
[2018-07-27] MEDS: MORPHINE PCA IV PRN ×2 (09:43→23:38)
[2018-07-27] MEDS: NORCO-7.5 PO PRN ×2 (11:16→20:52)
--- NOTE | 2018-07-27 11:19 | Diag Imaging Result Doc PS360 ---
EXAM: CHEST-PORTABLE HISTORY: abnormal exam TECHNIQUE: Portable chest single view 07/26/2018 COMPARISON: None. FINDINGS: No change in the right-sided chest tubes are in the small pneumothorax. There are sutures in the right hilum with lateral skin yola. No change in the right-sided PICC line. Infiltrates in the lower right lung are less pronounced. The left lung remains well expanded and clear. No cardiomegaly. IMPRESSION: Mild interval improvement. Electronically signed by Fawad Lemos 07/27/2018 11:17 AM
--- NOTE | 2018-07-27 13:45 | PROGRESS NOTE ---
DATE: 07/27/2018 SUBJECTIVE: The patient complains of chest wall pain at the chest tube insertion site. OBJECTIVE: Vital Signs: Temperature 98.6, blood pressure 107/77, heart rate 95, respiratory rate 27, O2 saturations 96% on 2 L nasal cannula. Urine output 2.9 L. General: This is a chronically ill-appearing, elderly female, lying in bed in no acute distress. Heart: S1, S2. Normal. Lungs: Equal air entry bilaterally. No crackles. No rales. Abdomen: Positive bowel sounds. Soft, nontender, nondistended. Extremities: No edema, no cyanosis. Neurologic: The patient is alert and oriented x3. LABS: White blood cell count 7, hemoglobin 7.9, hematocrit 24, platelets 318. Sodium 133, potassium 3.6, chloride 99, CO2 of 25, BUN 5, creatinine 0.5 glucose 102, calcium 8. Chest x-ray shows mild interval improvement. ASSESSMENT AND PLAN: 1. Status post posterior lateral thoracostomy with biopsy of the right lower lobe mass with partial right upper and lower lobectomy. Management as per General Surgery. 2. Apical pneumothorax. Improved. 3. Lung infection. Continue with antibiotic therapy. 4. Gastrointestinal prophylaxis. Continue on Protonix. 5. Deep vein thrombosis prophylaxis. Continue with sequential compression devices. cc: Rhiannon Mars MD
[2018-07-27] MEDS ORDERED: LOVENOX SUBQ SCH (16:00)
[2018-07-27] MEDS ORDERED: NS 1,000 ML IV SCH (17:00)
[2018-07-27] MEDS: PATIENT'S OWN MED BOTH EYES SCH (21:00)
--- NOTE | 2018-07-27 23:14 | GENERAL SURGERY PROGRESS NOTE ---
DATE: 07/27/2018 TIME: 4:50 p.m. Ms. Mo is now 3 days after right thoracotomy and lung resections. She is doing generally well. She is ventilating satisfactorily. Her temperature is 99.4 degrees, heart rate 94, blood pressure 123/81. She has bilateral breath sounds. She has an air leak in her apical chest tube, none in her posterior chest tube. Her lung looks quite well expanded on chest x-ray. She has taken some liquids by mouth but not much more. Her intake was 3220, output 2915. LABS: White count 7000, hemoglobin 7.9, hematocrit 24.6. Chemistry is fine. PLAN: Will be to remove her posterior chest tube today. We will encourage her p.o. intake. I will probably remove her to a regular room tomorrow the . cc: Jamin Rowell MD
[2018-07-28] MEDS: PERIDEX MT SCH ×3 (01:10→20:42)
--- NOTE | 2018-07-28 02:04 | PULMONOLOGY PROGRESS NOTE ---
DATE: 07/27/2018 SUBJECTIVE: She has had one chest tube be removed. She reports her chest pain has marginally improved. OBJECTIVE: Vital Signs: The patient has been afebrile for the last 24 hours. Blood pressure 118/77, heart rate 98, respiratory rate 23, oxygen saturation 91% on 2 L per nasal cannula. HEENT: Pupils are equal and reactive. Oropharynx is clear. Neck: Supple. Chest: Reveals crackles at the left base. She has a small air leak, with 1 chest tube in position. Abdomen: Soft, and without hepatosplenomegaly. Extremities: Without edema. LABORATORIES: Chest x-ray reveals slight decrease in infiltrates on the right, with small pneumothorax. IMPRESSION: A 57-year-old with progressive cavitary lung disease, alcohol use, ongoing tobacco use, history of head and neck cancer, status post resection of a thick wall cavity. She has mild hypoxemic respiratory failure, but continues to improve. RECOMMENDATIONS: 1. Continue to wean oxygen as tolerated. 2. Continue to encourage patient to use incentive spirometry. 3. Encourage patient to stop alcohol and tobacco. 4. Await final pathology report. cc: Christiano Robledo MD
[2018-07-28] MEDS: VANCOMYCIN 1,250 MG in NS 250 ML IV SCH (03:01)
[2018-07-28] MEDS: MAXIPIME 2 GM in NS 100 ML IV SCH (03:02)
[2018-07-28] MEDS: PROTONIX IV SCH ×2 (03:02→14:16)
[2018-07-28] MEDS: DUONEB (A & A) INH SCH ×4 (03:30→21:17)
[2018-07-28] MEDS: MORPHINE IV PRN ×3 (04:11→14:08)
--- NOTE | 2018-07-28 07:32 | Diag Imaging Result Doc PS360 ---
CHEST-PORTABLE - 07/28/2018 INDICATION: dyspnea COMPARISON: 07/27/2018 FINDINGS: Stable right chest tube in good position. Stable right PICC line. Stable small volume of the right lung. Stable linear atelectasis or infiltrate in the right midlung. The left lung remains clear. Heart size remains normal. No mediastinal shift. There is a stable small right apical pneumothorax of about 1.4 cm maximally. IMPRESSION: No change from prior. Electronically signed by Quinton Lange 07/28/2018 7:30 AM
[2018-07-28 08:16] LABS: BASO# 0.03 X1000 (0.0-0.2); BASO% 0.4 % (0.0-0.8); HEMATOCRIT 24.8 % (37.0-47.0); LYMPH# 0.42 X1000 (1.2-3.4); LYMPH% 6.3 % (20.5-51.1); MCH 27.1 PG (27-31); MCHC 32.3 g/dL (33-37); MCV 84.1 FL (81-99); MONO# 0.49 X1000 (0.11-0.59); MONO% 7.3 % (1.7-9.3); NEUT# 5.13 X1000 (1.4-6.5); PLT 359 X1000 (130-400); RBC 2.95 XMIL (4.2-5.4); RDW 14.3 % (11.5-14.5); WBC 6.67 X1000 (4.8-10.8)
[2018-07-28] MEDS: LEVSIN-SL SL SCH ×4 (08:29→20:41)
[2018-07-28] MEDS: NICODERM PATCH TD SCH (08:30)
[2018-07-28] MEDS: DIFLUCAN PO SCH (08:30)
[2018-07-28] MEDS: LACTULOSE PO SCH (08:30)
[2018-07-28] MEDS: TOPAMAX PO SCH (08:30)
[2018-07-28 08:38] LABS: AGAP 12; BUN 3 mg/dL (8-22); CALCIUM 8.2 mg/dL (8.8-10.2); CHLORIDE 96 mmol/L (98-107); COSMO 266; CREATININE 0.5 mg/dL (0.5-0.9); ESTIMATED GFR > 60; GLUCOSE 128 mg/dL (70-104); POTASSIUM 2.8 mmol/L (3.5-5.1); SODIUM 134 mmol/L (136-145); TCO2 26 mmol/L (25-35)
--- NOTE | 2018-07-28 11:17 | INFECTIOUS DISEASE PROGRESS NO ---
DATE: 07/28/2018 PRESENT ILLNESS: The patient is status post removal of a cavitary lung mass. The patient also had removal of apical blebs on frozen section from the tissues obtained at surgery. Granulomatous disease was seen. MEDICATIONS: Yesterday, I stopped cefepime and vancomycin. The patient had been on them for 17 days. PHYSICAL EXAMINATION: Vital Signs: Temperature is 99.6 degrees, pulse 94, respirations 18, blood pressure 105/78. General: This is a chronically ill-appearing middle-aged female. She is still having some chest pain on the right side, but it is a little bit better. Head/eyes/ears/nose/throat: She can hear my spoken words and see near objects. She does not have any white patches in her mouth. Thorax: Patient incision on the right side has a dressing over it and the dressing is intact. The patient also has a chest tube in place. That site is not bleeding or swollen. Cardiovascular: Heart rate is regular. Abdomen: Soft and nontender. Neurologic: The patient is alert. She can move her extremities. There is no tremor. LABORATORY AND X-RAY: Chest x-ray showed a right midlung infiltrate versus atelectasis. Creatinine is 0.5, GFR is greater than 60. CBC shows a white count of 6670, hemoglobin 8 and platelet count 359,000. ASSESSMENT AND PLAN: 1. The patient has granulomatous disease as noted on biopsy from the patient's recent surgery. The exact granulomatous disease is uncertain at this time. The patient in the mid lung has either some atelectasis or a small infiltrate. If it is an infiltrate, it is going to be something in the grand granulomatous diseases. Therefore, I have stopped all antibiotics. Also, I noticed that the patient's Siobhan oral mucositis has been cured and the patient does not complain of odynophagia, indicating that the esophagus does not have Siobhan infection at this time also. My plan is to discontinue his two antibiotics, namely Zyvox and cefepime and also stop fluconazole. I am not going to start any other medication pending the results of the most recent lung biopsy. 2. Comorbidities: Chronic obstructive pulmonary disease, alcoholism, cigarette smoking, and a history of head and neck cancers. cc: Clemente Montero MD
[2018-07-28] MEDS: MORPHINE PCA IV PRN (11:28)
[2018-07-28] MEDS: PHENERGAN IV PRN (11:53)
[2018-07-28] MEDS ORDERED: POTASSIUM CHLORIDE 40 MEQ/SWI 40 MEQ/100 ML IVPB IV ONE (12:21)
[2018-07-28] MEDS: LOVENOX SUBQ SCH (13:07)
--- NOTE | 2018-07-28 13:33 | GENERAL SURGERY PROGRESS NOTE ---
DATE: 07/28/2018 TIME: 12:20 p.m. SUBJECTIVE: Ms. Mo ate some for breakfast but then got nauseated and vomited. She is currently somewhat sedated from her Phenergan. OBJECTIVE: Her heart rate though was 105, blood pressure 140/90. She has bilateral breath sounds. I did not detect any air leak today. Her white count is 6700, hemoglobin 8, hematocrit 24.8. Potassium is 2.8, chloride 96. Chest x-ray shows a small apical pneumothorax but this is probably just simply due to volume loss. The plan will be to transfer her to a regular room and, hopefully, we will get her chest tube out by tomorrow. We will continue to encourage p.o. intake as he can tolerate it. cc: Jamin Rowell MD
--- NOTE | 2018-07-28 16:25 | PROGRESS NOTE ---
DATE: 07/28/2018 SUBJECTIVE: Patient is resting in bed. OBJECTIVE: Vital signs: Temperature is 98.7 degrees, pulse 97, respiratory rate 22, blood pressure 143/90, oxygen saturation 100%. HEENT: Atraumatic, normocephalic. Cardiovascular: S1, S2. Respiratory: Has evidence of good air entry bilaterally. She does have right chest tube. Abdomen: Soft, nontender. No masses felt. Extremities: No evidence of edema. Central nervous system: No obvious focal deficits noted. LABS: WBC is 6.67, hematocrit is 24.8, with a platelet count of 359,000. Sodium is 134, potassium is 2.8, chloride is 96, bicarb is 26, BUN is 3, creatinine 0.5. X-ray of the chest shows a stable linear atelectasis or infiltrate in the right mid lung. There is also a stable right apical pneumothorax about 1.4 cm. ASSESSMENT AND PLAN: 1. Status post right thoracotomy as well as a lung resection. The patient does have a right chest tube still in place. The patient is being followed by the surgical team. 2. Granulomatous lung disease. Biopsy notes granulomatous disease. The patient's x-ray shows evidence of right middle lung infiltrate versus atelectasis. Antibiotics have been discontinued by the Infectious Disease team. Identification and treatment of the granulomatous disease deferred to ID. 3. Small right apical pneumothorax. The patient will need to be on oxygen. Will need to follow up on serial chest x-ray. 4. Hypokalemia. Replace potassium level. Recheck magnesium level. 5. History of head and neck cancer. Aware. 6. History of tobacco use as well as alcoholism. Patient to abstain from these substances. 7. Deep vein thrombosis prophylaxis. SCDs. 8. Gastrointestinal prophylaxis. PPI. cc: Arthur Mckeon MD
--- NOTE | 2018-07-28 20:30 | PULMONOLOGY PROGRESS NOTE ---
DATE: 07/28/2018 SUBJECTIVE: Patient is awake, alert, and conversant. She has an excellent cough, which is nonproductive. She did have some vomiting earlier this morning. OBJECTIVE: Vital signs: The patient has been afebrile for the last 24 hours, but did have a temperature yesterday afternoon of 100.3 degrees, BP 112/75, heart rate 103, respiratory rate 24, oxygen saturation 97% on room air. HEENT: Pupils are equal and reactive. Oropharynx is clear. Neck: Supple. Chest: Some coarse breath sounds at the right base. No wheezing. No rhonchi. No air leak identified on chest tube. Cardiac: S1, S2. Abdomen: Soft without hepatosplenomegaly. Extremities: Without edema. DIAGNOSTIC DATA: Chest x-ray reveals mild increased markings in the right mid lung zone. There is a tiny right apical pneumothorax which is unchanged. White blood count 6.67, hemoglobin 8.0, platelet count 359,000. Sodium 134, potassium 2.8, chloride 96, bicarbonate 26, BUN 3, creatinine 0.5. IMPRESSION: A 57-year-old with: 1. Progressive cavitary lung disease. 2. Alcohol use. 3. Ongoing tobacco use. 4. History of head and neck cancer. She has undergone resection of a thick-walled cavity in the right lower lobe. Preliminary report is necrotizing granulomatous disease without evidence of malignancy. The patient's respiratory failure has resolved. RECOMMENDATIONS: 1. Continue bronchial hygiene. 2. Diet as tolerated. 3. Chest tube management per Dr. Rowell. 4. Encourage patient to discontinue alcohol and tobacco. 5. Await final pathology report. cc: Christiano Robledo MD
[2018-07-28] MEDS: ZOFRAN IV PRN (20:42)
[2018-07-28] MEDS: KLOR-CON PO SCH (20:42)
[2018-07-29] MEDS: MORPHINE PCA IV PRN (00:35)
[2018-07-29] MEDS: DUONEB (A & A) INH SCH ×4 (03:23→21:15)
[2018-07-29] MEDS: PATIENT'S OWN MED BOTH EYES SCH ×2 (04:19→21:12)
[2018-07-29] MEDS: LACTULOSE PO SCH ×3 (04:19→21:11)
[2018-07-29] MEDS: PROTONIX IV SCH ×2 (04:20→17:44)
[2018-07-29 06:36] LABS: BASO# 0.03 X1000 (0.0-0.2); BASO% 0.6 % (0.0-0.8); EOS# 0.62 X1000 (0.0-0.7); EOS% 11.7 % (0.0-10.0); HEMOGLOBIN 8.7 g/dL (12.0-16.0); LYMPH# 0.72 X1000 (1.2-3.4); LYMPH% 13.6 % (20.5-51.1); MCH 27.2 PG (27-31); MCHC 32.2 g/dL (33-37); MCV 84.4 FL (81-99); MONO# 0.63 X1000 (0.11-0.59); MONO% 11.9 % (1.7-9.3); NEUT# 3.29 X1000 (1.4-6.5); NEUT% 62.2 % (42.2-75.2); PLT 381 X1000 (130-400); RDW 14.3 % (11.5-14.5); WBC 5.29 X1000 (4.8-10.8)
[2018-07-29 06:58] LABS: AGAP 12; BUN 3 mg/dL (8-22); CALCIUM 8.7 mg/dL (8.8-10.2); CHLORIDE 94 mmol/L (98-107); COSMO 269; CREATININE 0.5 mg/dL (0.5-0.9); ESTIMATED GFR > 60; GLUCOSE 107 mg/dL (70-104); MAGNESIUM 1.7 mg/dL (1.5-2.7); POTASSIUM 3.5 mmol/L (3.5-5.1); SODIUM 136 mmol/L (136-145); TCO2 30 mmol/L (25-35)
[2018-07-29] MEDS: KLOR-CON PO SCH ×2 (08:04→21:11)
[2018-07-29] MEDS: NORCO-7.5 PO PRN (08:05)
[2018-07-29] MEDS: LEVSIN-SL SL SCH ×4 (08:05→21:11)
[2018-07-29] MEDS: DIFLUCAN PO SCH (08:08)
[2018-07-29] MEDS: NICODERM PATCH TD SCH (08:08)
[2018-07-29] MEDS: TOPAMAX PO SCH (08:09)
[2018-07-29] MEDS: PERIDEX MT SCH ×2 (08:09→21:11)
[2018-07-29] MEDS ORDERED: SODIUM CHLORIDE 0.9% 20 ML ONE (10:19)
[2018-07-29] MEDS: ZOFRAN IV PRN (13:16)
[2018-07-29] MEDS: LOVENOX SUBQ SCH (13:26)
--- NOTE | 2018-07-29 13:56 | PROGRESS NOTE ---
DATE: 07/29/2018 SUBJECTIVE: The patient is resting in bed. She does complain of epigastric abdominal pain. OBJECTIVE: Vital signs are as follows: Temperature is 98.4, pulse 94, respirations 19, blood pressure 125/83, oxygen saturation is 96%. HEENT: Atraumatic, normocephalic. Cardiovascular: S1, S2. Respiratory system has evidence of good air entry bilaterally. Abdomen: She does have epigastric tenderness. No masses felt. Extremities: No evidence of edema. Central Nervous System: No obvious focal deficit noted. LABORATORY DATA: WBC is 5.29, hematocrit is 27 with a platelet count of 381, 000. Sodium is 136, potassium 3.5, chloride is 94, bicarb 30. BUN is 20. Creatinine 0.8. ASSESSMENT AND PLAN: 1. Epigastric abdominal pain, query etiology. We will obtain a lipase level and also get a CT scan of the abdomen and pelvis. Consult with GI for endoscopic studies. Maintain patient on proton pump inhibitor. 2. Status post right thoracotomy as well as lung resection. Right chest tube still in place. Surgery following. 3. Granulomatous lung disease. . The patient is currently off antibiotics at this time. We will wait for final pathology report of the lung biopsy. 4. Small, right apical pneumothorax. Maintain the patient on oxygen and follow up on x-ray. 5. Hypokalemia. Replace potassium. Follow up on magnesium level. 6. History of head and neck cancer, aware. 7. History of tobacco use as well as alcoholism. Counseling to abstain from this substances. 8. Deep vein thrombosis prophylaxis; sequential compression devices. 9. Gastrointestinal prophylaxis; proton pump inhibitor. cc: Arthur Mckeon MD [facility]
--- NOTE | 2018-07-29 14:43 | Diag Imaging Result Doc PS360 ---
CT ABD/PELVIS W/IV CONT ONLY - 07/29/2018 INDICATION: epigastric abdominal pain COMPARISON: 08/04/2017 FINDINGS: There is a right chest tube in good position. No pneumothorax. There are some mild infiltrate or edema in the right lung base mainly in the right lower lobe. There is a small right pleural effusion. The left lung base appears clear. The heart size is normal. There is mild constipation of the descending colon. Remainder of the colon is very fluid-filled. The liver, gallbladder, spleen, pancreas, adrenals, and kidneys are unremarkable. There is some dependent flank edema. Bony structures are intact. IMPRESSION: 1. Mild infiltrate or edema in the right lower lobe. Small right basilar pleural effusion. Right chest tube in good position. 2. Mild constipation of the descending colon. Remainder of the bowels are fluid-filled. This exam was performed using automated exposure control, adjustment of mA or kV according to patient size, and/or use of iterative reconstruction technique Electronically signed by Quinton Lange 07/29/2018 2:40 PM
--- NOTE | 2018-07-29 15:48 | GENERAL SURGERY PROGRESS NOTE ---
DATE: 07/29/2018 TIME: 3 o'clock in the afternoon. OBJECTIVE: Vital signs: She is afebrile, heart rate 94, blood pressure 125/83. Lungs: She has bilateral breath sounds. I do not see an air leak in her chest tube today. Her wound looks fine. PLAN: The plan is remove her chest tube. We will also remove her Garcia. Her final pathology is pending. cc: Jamin Rowell MD
--- NOTE | 2018-07-29 16:06 | INFECTIOUS DISEASE PROGRESS NO ---
DATE: 07/29/2018 PRESENT ILLNESS: Ms. Mo is status post removal of a right cavitary mass with a partial right lower lobectomy and a right upper lobectomy. Granulomatous disease has been seen; however, the pathology is still pending. MEDICATIONS: Her cefepime and vancomycin have been stopped 2 days ago and fluconazole has been stopped today. She did receive 17 days of antibiotics. PHYSICAL EXAMINATION: Vital Signs: Temperature is 98.4 degrees, pulse rate 94 , respiratory rate 19, blood pressure 125/83, O2 saturation is 96% on 2 L nasal cannula. General: This is a chronically ill-appearing, middle-aged female. She is lying in the bed, currently in no acute distress. HEENT: Atraumatic, normocephalic. Oral mucous membranes are pink and moist. Conjunctivae are pale. Neck: Supple. Trachea is midline. Respiratory: Lung sounds have some coarse rhonchi noted on the right. Clear and diminished on the left. Cardiovascular: Heart rate and rhythm are regular. Normal sinus rhythm on the monitor. Pedal and radial pulses are +1 bilaterally. Abdomen: Soft, round, and nontender. Bowel sounds are active. Integumentary: Mediastinal incision is clean, dry, and healing with a small scabby area, open to air. There is a dressing to her right back as well as some yola which are clean and dry. Chest tube has been removed. Neurologic: She is awake, alert, and oriented. Moving all extremities in the bed with some generalized weakness. LABORATORY AND X-RAY: Today her white count is 5.29, hemoglobin 8.7, platelet count 381,000. Creatinine is 0.5. Estimated GFR is greater than 60. CT of the abdomen and pelvis done today shows mild infiltrate or edema to the right lower lobe with a small pleural effusion in the base and mild constipation. ASSESSMENT AND PLAN: Ms. Mo has granulomatous disease as noted with her recent surgery by Dr. Rowell. We are still waiting for the pathology report which is pending. For now all antimicrobials have been stopped. We will continue to follow her while awaiting pathology for progression of treatment for the granulomatous disease. These plans have been discussed with and recommended by Dr. Montero. COMORBIDITIES: For Ms. Mo include history of head and neck cancer, chronic obstructive pulmonary disease, alcoholism, and cigarette smoking. Dictated by ANA Pond for Clemente Montero MD This chart was documented by, ANA Pond and accurately reflects the services performed, treatment plan and medical decisions as attested by the providers signature Clemente Montero MD. cc: Clemente Montero MD [facility]
[2018-07-29] MEDS: MORPHINE IV PRN ×2 (17:42→21:23)
--- NOTE | 2018-07-30 02:39 | PULMONOLOGY PROGRESS NOTE ---
DATE: 07/29/2018 SUBJECTIVE: The patient is awake, alert, and conversant. She has some intermittent back pain at the chest tube surgical site. She has no shortness of breath. Chest tube has been removed. OBJECTIVE: The patient has been afebrile for the last 24 hours. Blood pressure 109/68, heart rate 105, respiratory rate 14, oxygen saturation 100% on room air. HEENT: Pupils are equal and reactive. Oropharynx is clear. Neck: Supple. Chest: Reveals good air entry bilaterally, with crackles at the right base. Cardiac: S1-S2. Abdomen: Soft, and without hepatosplenomegaly. Extremities: Without edema. LABORATORIES: CT scan of the abdomen and pelvis reveals mild constipation in the descending colon, with postsurgical changes at the right lung base. White blood count 5.29, hemoglobin 8.7, platelet count 381,000. Sodium 136, potassium 3.5, chloride 94, bicarbonate 30, BUN 3, creatinine 0.5. IMPRESSION: A 57-year-old with progressive cavitary disease, COPD, ongoing tobacco use, alcohol use, history of head and neck cancer. She has undergone resection of the thick wall cavity, and preliminary report is granulomatous, without evidence of malignancy. Final pathology with stains is pending. She no longer has respiratory failure. Chest tubes have been removed. PLAN: 1. Follow-up chest x-ray tomorrow. 2. Diet as tolerated. 3. Encourage patient to discontinue tobacco and alcohol. 4. Await final pathology report. 5. Anticipate hospital discharge in the near future. cc: Christiano Robledo MD
[2018-07-30] MEDS: PROTONIX IV SCH ×2 (03:00→15:31)
[2018-07-30] MEDS: MORPHINE IV PRN ×2 (03:00→08:52)
[2018-07-30] MEDS: DUONEB (A & A) INH SCH ×4 (03:20→22:13)
[2018-07-30] MEDS: ZOFRAN IV PRN ×2 (04:59→08:58)
[2018-07-30 06:45] LABS: BASO# 0.03 X1000 (0.0-0.2); BASO% 0.6 % (0.0-0.8); EOS# 0.52 X1000 (0.0-0.7); HEMATOCRIT 25.1 % (37.0-47.0); LYMPH# 0.64 X1000 (1.2-3.4); LYMPH% 13.5 % (20.5-51.1); MCH 26.8 PG (27-31); MCHC 31.9 g/dL (33-37); MCV 83.9 FL (81-99); MONO# 0.57 X1000 (0.11-0.59); MONO% 12.1 % (1.7-9.3); MPV 8.9 FL (7.4-10.4); NEUT# 2.97 X1000 (1.4-6.5); NEUT% 62.8 % (42.2-75.2); PLT 442 X1000 (130-400); RBC 2.99 XMIL (4.2-5.4); RDW 14.4 % (11.5-14.5); WBC 4.73 X1000 (4.8-10.8)
[2018-07-30 07:19] LABS: AGAP 12; ALB/GLOB RATIO 0.9; ALBUMIN 2.9 g/dL (3.5-5.0); ALKALINE PHOSPHATASE 318 U/L (32-104); BUN 3 mg/dL (8-22); CALCIUM 8.9 mg/dL (8.8-10.2); CHLORIDE 95 mmol/L (98-107); COSMO 265; CREATININE 0.6 mg/dL (0.5-0.9); ESTIMATED GFR > 60; GLUCOSE 111 mg/dL (70-104); GOT 31 U/L (10-30); GPT 19 U/L (10-36); POTASSIUM 3.8 mmol/L (3.5-5.1); SODIUM 134 mmol/L (136-145); TCO2 27 mmol/L (25-35); TOTAL BILIRUBIN 0.31 mg/dL (0.20-1.00)
--- NOTE | 2018-07-30 08:21 | Diag Imaging Result Doc PS360 ---
EXAM: CHEST-1 VIEW - 07/30/2018 HISTORY: pneumothorax TECHNIQUE: Portable chest COMPARISON: 07/28/2018 FINDINGS: There has been interval removal of the right chest tube. There is a small pneumothorax at the right apex which appears to have decreased slightly. Right midlung opacity appears to have decreased slightly. The left lung remains essentially clear. Heart size is normal. PICC remains in place. IMPRESSION: Interval removal of right chest tube. Small pneumothorax at right apex, which appears to have decreased slightly compared to prior. Electronically signed by Ion Oliva 07/30/2018 8:18 AM
[2018-07-30] MEDS: NICODERM PATCH TD SCH (08:59)
[2018-07-30] MEDS: PERIDEX MT SCH ×2 (08:59→23:04)
[2018-07-30] MEDS: LEVSIN-SL SL SCH ×5 (08:59→23:03)
[2018-07-30] MEDS ORDERED: CATHFLO IV ONE (09:42)
[2018-07-30] MEDS ORDERED: STERILE WATER INJ. INJ ONE (09:42)
[2018-07-30] MEDS ORDERED: SODIUM CHLORIDE 0.9% 20 ML ONE (09:51)
[2018-07-30] MEDS: NORCO-7.5 PO PRN ×4 (10:36→23:03)
[2018-07-30] MEDS: KLOR-CON PO SCH (11:14)
[2018-07-30] MEDS: TOPAMAX PO SCH (11:14)
[2018-07-30] MEDS: LACTULOSE PO SCH (11:14)
--- NOTE | 2018-07-30 14:20 | GENERAL SURGERY PROGRESS NOTE ---
DATE: 07/30/2018 SUBJECTIVE: Ms. Mo's primary complaint is some epigastric pain. OBJECTIVE: She is afebrile. Hemodynamics are good. Bilateral breath sounds are present. Her chest x-ray looks okay. Her wound is fine. White count is 4700, hemoglobin 8, hematocrit 25. ASSESSMENT: I think she is progressing from a thoracotomy well. I think she will be ready to go home in the next 24 to 48 hours from her thoracotomy if all else agrees. cc: Jamin Rowell MD
[2018-07-30] MEDS: LOVENOX SUBQ SCH (15:31)
[2018-07-30] MEDS: SODIUM CHLORIDE 0.9% INJ ONE (15:32)
[2018-07-30] MEDS ORDERED: CARAFATE PO PRN (15:45)
--- NOTE | 2018-07-30 16:14 | INFECTIOUS DISEASE PROGRESS NO ---
DATE: 07/30/2018 PRESENT ILLNESS: The patient has underwent removal of a right cavitary mass. 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 MEDICATIONS: Currently, the patient is on no antimicrobial therapy. PHYSICAL EXAMINATION: Vital Signs: Temperature is 98.3 degrees, pulse 93, respirations 16, blood pressure 117/83. General: This is a chronically ill and malnourished-appearing, middle-aged female. She is in no acute distress. Head, eyes, ears, nose, and throat: She can hear my spoken words and see near objects. There were no white patches on her tongue. Neck: No meningismus. Thorax: The patient's incision on the right side of the chest is intact. It is not draining, and the site where the chest tube was also is closing up and it is not draining. Lungs: Clear to auscultation. Cardiovascular: Regular heart rate. Abdomen: Soft and nontender. Neurologic: The patient is awake. She can move her extremities. There is no tremor. LAB AND X-RAY: The patient's pathology report as mentioned above shows necrotizing granulomatous inflammation. Creatinine is 0.6. GFR is greater than 60. The alkaline phosphatase is 318. CBC shows a white count of 4730, hemoglobin 8, and platelet count 442,000. ASSESSMENT AND PLAN: The patient has necrotizing granulomatous inflammation. The pathology report did special stains for AFB and fungi, and these were negative. The patient previously has had the following tests: The antibody to HIV was negative. The QuantiFERON test for TB was negative. The histo antigen was negative. The Coccidioides antibody was negative. When the patient had bronchoscopy, cultures for AFB and fungi were negative. The only positive test we have had to determine the cause of the granulomatous reaction is the histo antibody which was positive at 1 to 64. My plan for right now is to obtain a few more studies, namely the Aspergillus antigen, the cryptococcal antigen and the Blastomyces antibody. If these tests are negative, then I am going to treat the patient for presumptive histoplasmosis. The patient, unfortunately, has a history of alcoholism and her alkaline phosphatase is 318, so the medications I would be giving by mouth can affect liver function studies, so the patient is going to have to definitely agree not to drink any alcoholic beverages which would make the liver problem more difficult. If we start treating the patient with medication, then also I would insist on her not smoking cigarettes also. COMORBIDITIES: The patient's comorbidities include history of head and neck cancer, chronic obstructive pulmonary disease, alcoholism, and cigarette smoking. By the way, if we are going to treat this with medication, I would also insist that the patient stop cigarette smoking. cc: Clemente Montero MD
--- NOTE | 2018-07-30 17:33 | PROGRESS NOTE ---
DATE: 07/30/2018 INTERVAL HISTORY: The patient still with some epigastric pain, but it is somewhat improved with PPI. Chest tube now removed, and the patient breathing well on room air. Post chest tube removal x-ray showing small apical pneumothorax, but otherwise unremarkable. Pathology negative for malignancy from lung biopsy. No other new complaints. No acute events overnight. LABORATORY: WBC 4.7, hemoglobin 8, hematocrit 25.1, and platelets 442,000. Sodium 134, potassium 3.8, chloride 95, BUN 3, creatinine 0.6, glucose 111, and total bilirubin 0.3. IMAGING: Chest x-ray with interval removal of right chest tube. Small right apical pneumothorax decreased from prior. VITAL SIGNS: T-max 99.3 degrees, pulse 89, respirations 20, blood pressure 126/ 86, and O2 sats 100% on room air. PHYSICAL EXAMINATION: General: No acute distress. Vital Signs: As above. HEENT: Normocephalic, atraumatic. Moist mucous membranes. No cervical adenopathy. Cardiovascular: Regular rate and rhythm. No murmurs, rubs, or gallops. Pulmonary: Slight crackles at the right base remain, otherwise clear to auscultation bilaterally. Abdomen: Soft. Mild epigastric tenderness noted. Otherwise, nontender without rebound or guarding. Nondistended. Bowel sounds positive. Extremities: Peripheral pulses decreased but intact. No clubbing, cyanosis, or edema. Neurologic: Cranial nerves grossly intact. No focal deficits identified. Psychiatric: Normal mood and affect. Awake, alert, and oriented x3. Skin: No new rashes or lesions identified. ASSESSMENT AND PLAN: 1. Granulomatous infection: status post thoracotomy with biopsy. Pathology showing necrotizing granuloma without evidence of malignancy. Stains for AFB and fungi negative. HIV negative. QuantiFERON gold negative. Coccidioides negative. Bronchial cultures negative. She did have a somewhat positive histo antibody reaction. Infectious Disease following further recommendations pending. 2. Right pneumothorax, small pneumothorax status post thoracotomy. Chest tube out. small pneumothorax still present but appears to be resolving. The patient largely is symptomatic from respiratory standpoint. 3. Epigastric pain. Patient does have a history of significant GERD. On PPI. We will add some Carafate and monitor. Blood counts remain low but stable. 4. Anemia, likely anemia of chronic disease. Stable. Continue to monitor. 5. Hypokalemia improved, status post repletion. Continue to monitor. 6. Hyponatremia mildly symptomatic. We will monitor. 7. History of tobacco and alcohol use. The patient is counseled on cessation. She has not smoked for a while. Also counseled to avoid alcohol. 8. History of head and neck cancer, not known to be active at this time. 9. Deep vein thrombosis prophylaxis, SCD's. DISPOSITION: Doing well status post chest tube placement. If chest x-ray remains negative, we may be able to discharge tomorrow if infectious disease okay with that. If ID is still awaiting further test tomorrow, then may have to stay. DEE
[2018-07-30] MEDS: PATIENT'S OWN MED BOTH EYES SCH (23:04)
--- NOTE | 2018-07-31 00:15 | PULMONOLOGY PROGRESS NOTE ---
DATE: 07/30/2018 SUBJECTIVE: The patient is awake, alert, and conversant. She has a dry nonproductive cough. She has intermittent epigastric pain. OBJECTIVE: Vital Signs: The patient has been afebrile for the last 24 hours. Blood pressure 93/68, heart rate 87, respiratory rate 18, oxygen saturation 98% on room air. HEENT: Pupils are equal and reactive. Oropharynx is clear. Neck is supple. Chest reveals mild chest wall tenderness at the previous chest tube site. Cardiac: S1-S2. Abdomen: Soft, and without hepatosplenomegaly. Extremities: Without edema. LABORATORIES: Chest x-ray reveals postsurgical changes on the right, with a tiny right pneumothorax, which has decreased in size. Final pathology reveals necrotizing granulomatous disease, but no evidence of malignancy. White blood count 4.73, hemoglobin 8.0, platelet count 442,000. Sodium 134, potassium 3.8, chloride 95, bicarbonate 27, BUN 3, creatinine 0.6, albumin 2.9. Aspergillus antibody negative. AFB from surgical specimen negative. Bacterial cultures and anaerobic cultures from surgical specimen negative. Gram stain with no bacteria seen. IMPRESSION: A 57-year-old with alcohol use, chronic obstructive pulmonary disease, who was admitted with ongoing tobacco use, progressive cavitary lung disease, with a history of head and neck cancer, who has undergone resection of a progressive thick wall cavitary lesion, which revealed necrotizing granulomatous changes, but no evidence of malignancy. Special stains were negative. AFB sent to [facility] was also negative. The patient is likely immunocompromised from her debilitated status, alcohol use, and tobacco use. Dr. Montero is evaluating her for other fungal organisms such as histoplasmosis (checking an antibody), cryptococcus, and blastomycosis. He is considering treating for histoplasmosis if no specific pathogen can be identified, and I agree with this logic since that would be the most probable organism. RECOMMENDATION: 1. Encourage p.o. intake as tolerated. 2. Avoid alcohol and tobacco at the time of discharge. 3. Consider treatment for histoplasmosis, as outlined per Dr. Montero. 4. Anticipate discharge in the near future. cc: Christiano Robledo MD
[2018-07-31] MEDS: DUONEB (A & A) INH SCH ×3 (03:44→15:44)
[2018-07-31] MEDS: NORCO-7.5 PO PRN ×3 (04:24→15:15)
[2018-07-31] MEDS: PROTONIX IV SCH ×2 (04:24→15:22)
[2018-07-31] MEDS: LEVSIN-SL SL SCH ×2 (10:10→15:15)
[2018-07-31] MEDS: TOPAMAX PO SCH (10:10)
[2018-07-31] MEDS: NICODERM PATCH TD SCH (10:10)
--- NOTE | 2018-07-31 13:07 | INFECTIOUS DISEASE PROGRESS NO ---
DATE: 07/31/2018 ASSESSMENT AND PLAN: Ms. Mo has a necrotizing granulomatous inflammation. Multiple tests are pending. At this point, we want to hold any further treatment until all of her tests have resulted. We will follow up with her in the office in a week and talk to her about possible treatments. She will need to stop drinking alcohol and smoking cigarettes in order for us to treat her. Giving her some time between discharge and the office visit, will help us to determine whether she is able to do that. We will sign off at this time and see her back in our office in a week. We will be available on a p.r.n. basis. These plans have been discussed with and recommended by Dr. Montero. Dictated by ANA Pond for Clemente Montero MD This chart was documented by, ANA Pond and accurately reflects the services performed, treatment plan and medical decisions as attested by the providers signature Clemente Montero MD. cc: Clemente Montero MD [facility]
--- NOTE | 2018-07-31 14:16 | PROGRESS NOTE ---
DATE: 07/31/2018 SUBJECTIVE: The patient was awake, alert. She was in no acute distress. Her was at the bedside. I rounded on the patient today, since we will be following 's patients. The patient states her abdominal symptoms have improved. She had thoracotomy, following with Dr. Rowell and Infectious Disease. OBJECTIVE: Vital signs: Temperature 98.4, pulse 89, respirations 16, blood pressure 110/70. General: The patient is awake and alert, in no acute distress. LABORATORY: Hematology: WBC 4.73, hemoglobin 8.0, hematocrit 25.1, MCV 83.9. Chemistry: Sodium 134, potassium 3.8, chloride 95, CO2 of 27, BUN 3, creatinine 0.6, glucose 111. ASSESSMENT AND PLAN: 1. Recent thoracotomy, following with [facility] and Infectious Disease. Workup is in progress. 2. Gastroesophageal reflux disease, nausea, vomiting, abdominal pain during her hospitalization that has improved. Recommend she continue PPI. Other medical problems followed by medical team. As far as GI is concerned, we will sign off, and I have discussed with the patient if she wants to follow up with Dr. Hidalgo to call and make an outpatient appointment after discharge. I have discussed this case with Dr. Hidalgo. Dictated by ANA Perez for Abdifatah Hidalgo MD cc: ANA Fonseca MD
[2018-07-31 14:28] LABS: BLASTOMYCES AB BY EIA SEE COMMENTS
[2018-07-31] MEDS: LACTULOSE PO SCH (15:18)
[2018-07-31] MEDS: PERIDEX MT SCH (15:18)
[2018-07-31] MEDS: LOVENOX SUBQ SCH (15:18)
[2018-07-31 15:35] VITALS: BP 117/73
--- NOTE | 2018-07-31 23:33 | GENERAL SURGERY PROGRESS NOTE ---
DATE: 07/31/2018 Ms. Mo is now a week after thoracotomy and lung resection. She is doing well. She is afebrile, heart rate 89, blood pressure 110/70. She has bilateral breath sounds. Her wounds look fine. From my perspective she can go home. She should return to see me on Friday the for staple removal. She will need some pain medicine at home. The other discharge medicines will be per her medical physician. cc: Jamin Rowlel MD
--- NOTE | 2018-07-31 23:58 | PROGRESS NOTE ---
DATE: 07/31/2018 SUBJECTIVE: Patient resting comfortable in bed. OBJECTIVE: Vital signs: Temperature is 99 degrees, pulse 89, respiration 20, oxygen is 100%. HEENT: Atraumatic, normocephalic. Cardiovascular: S1, S2. Respiratory: Has evidence of good entry bilaterally. Abdomen: Soft, nontender, no masses. Extremities: No evidence of edema. Central nervous system: No obvious focal deficit noted. LABS: None. Pathology report shows evidence of necrotizing granulomatous infection. ASSESSMENT AND PLAN: 1. Granulomatous lung disease. Pathology report comes back positive for necrotizing granulomatous disease which stains negative for AFP as well as fungal organisms. Further treatment will be by the Infectious Disease team. 2. Status post right thoracotomy as well as lung resection. Right chest tube has since been removed. 3. Small right apical pneumothorax. 4. History of head as well as neck cancer. Aware. 5. Tobacco use history. 6. Alcoholism. PLAN: Wound plan for discharge home today and patient will need to follow up with the infectious disease as well as the surgical teams in the outpatient period. cc: Arthur Mckeon MD MTDD
--- NOTE | 2018-08-01 06:43 | PULMONARY FUNCTION REPORT ---
DATE: 07/20/2018 CLINICAL HISTORY: A 57-year-old with shortness of breath, and a greater than 89-dtmj-xzkh history for tobacco. SPIROMETRY: The FVC is 2.09 L, or 76% of predicted. The FEV1 is 1.85 L, or 85% of predicted. The FEV1/FVC ratio is 89%. The FEF 25-75 is 2.19 L, or 102% of predicted. LUNG VOLUMES: Total lung capacity is low normal at 4.01 L, or 81% of predicted. The residual volume is 1.64 L, or 88% of predicted. The FRC is 2.85 L, or 103% of predicted. DIFFUSION: DLCO corrected for hemoglobin level is moderately reduced at 13.74 mL/minute/mmHg, or 59% of predicted. IMPRESSION: 1. Despite smoking history, PFTs are most consistent with mild restrictive physiology. 2. Moderate reduction in diffusion capacity. cc: Christiano Robledo MD
[2018-08-04 15:09] LABS: BLASTOMYCES BY IMMUNODIFFUSION SEE COMMENTS
--- NOTE | 2018-08-14 22:56 | DISCHARGE SUMMARY ---
ADMISSION DATE: 07/09/2018 DISCHARGE DATE: 07/31/2018 PRINCIPAL DIAGNOSIS: Granulomatous lung disease. SECONDARY DIAGNOSES: 1. Status post right thoracostomy, as well as lung resection. 2. Small right apical pneumothorax. 3. Alcoholism. 4. History of head and neck cancer. 5. Tobacco use history. 6. Leukocytosis. 7. Chronic obstructive pulmonary disease. 8. Right upper lobe cavitary lesion. 9. Gastroesophageal reflux disease. 10. History of polysubstance dependence. 11. Sleep apnea. 12. Anemia. 13. Chronic history of brain aneurysm. 14. Hyperlipidemia. DISCHARGE MEDICATIONS: 1. Neurontin 300 mg p.o. twice a day. 2. Atorvastatin 20 mg p.o. daily. 3. ProAir 2 puffs as needed. 4. Vyzulta 2 drop in both eyes. 5. Dulera inhaler 2 puffs daily. 6. MiraLAX 17 g twice a day. 7. Sucralfate 1 g before meals and at bedtime. 8. Pantoprazole 40 mg p.o. daily. 9. [place] 7.5 every 4 hours p.r.n. 10. DuoNeb 3 mL every 4 hours p.r.n. CONSULTATIONS DONE DURING THIS HOSPITAL STAY: 1. Dr. Denise Keith, Gastroenterology 2. Dr. Robledo, Pulmonology. 3. Dr. Clemente Montero, Infectious Disease. 4. Dr. Howard, General Surgery. HOSPITAL COURSE: Ms. Kathy Mo is a 57-year-old female who was initially admitted 07/09/2018 because of abdominal pain, along with nausea and vomiting. She also has had weight loss. As part of the evaluation, she underwent a CT scan of the chest, abdomen, and pelvis, and also CT of the chest, which documented a cavitary lesion in the superior segment of the right lower lobe. The patient had been followed up by Dr. Smion in the outpatient. She has had a bronchoscopy in the past. She was told she had cavitary pneumonia in the past. She does have a history of head and neck cancer. When she presented to the hospital, the patient was started on antibiotics for presumed infection by the Infectious Disease team. She also had a CT-guided lung biopsy done, which showed evidence of fragments of necrotic tissue, as well as debris. Surgery was consulted for open lung biopsy. The patient had a mediastinoscopy with biopsy done on 07/23/2018, and also on 07/24/2018 the patient had a right posterior lateral thoracotomy, with biopsy of the right lower lobe mass inferiorly, a partial right lobectomy, with removal of a large cavitary mass, and also partial right upper lobectomy, with removal of apical blebs. Pathology from the lung tissue came back positive for granulomatous disease. The patient had a pulmonary lung function test done, which showed evidence of mild restrictive physiology. The patient was subsequently discharged home on 07/31/2018, and she will need to follow up with Dr. Clemente Montero, in terms of treatment of the granulomatous disease noted on the patient's lungs. cc: Arthur Mckeon MD
== END 2018-07-31 18:16 | disposition home or self-care (01) | DRG 163 ==
LOC: ED 11:54 → EDIPHOLD 11:54 → SUATTDRO 16:43 → OBSVTOIN 16:43 → 4N 17:56 → ICU 07-24 15:01 → 4N 07-28 16:54
PROVIDERS: ATTEND Internal Medicine
CPT/HCPCS: 32405; 36430; 36569; 71010; 71020; 71045; 71046; 71260; 74000; 74018; 74022; 74177; 76705; 77012; 80048; 80053; 80202; 81001; 82270; 82378; 82948; 83690; 83735; 84100; 84132; 85014; 85018; 85025; 85027; 85610; 85651; 85730; 86140; 86403; 86480; 86580; 86606; 86612; 86850; 86900; 86901; 86920; 87015; 87040; 87070; 87075; 87102; 87116; 87205; 87206; 87275; 87276; 87385; 87804; 88305; 88307; 88309; 88312; 88313; 88331; 89220; 93005; 94640; 94761; 94799; 96361; 96374; 97110; 97162; 99285; 99999; A9270; C9113; C9290; J0330; J0690; J0692; J1650; J2060; J2270; J2275; J2370; J2405; J2550; J2997; J3010; J3370; J3475; J3480; J7030; J7040; J7050; P9016; Q9967; Q9974; S0020; S0164; XXXXX

== ENCOUNTER 2018-08-03 03:30 | Inpatient (IN) ==
[2018-08-03 04:51] LABS: BASO# 0.03 X1000 (0.0-0.2); BASO% 0.5 % (0.0-0.8); EOS# 1.24 X1000 (0.0-0.7); IMM GRAN# 0.12 X1000 (0.0-0.04); IMM GRAN% 1.9 % (0.0-0.5); LYMPH# 0.76 X1000 (1.2-3.4); LYMPH% 12.2 % (20.5-51.1); MCH 26.3 PG (27-31); MCHC 31.3 g/dL (33-37); MCV 84.2 FL (81-99); MONO# 0.63 X1000 (0.11-0.59); MONO% 10.1 % (1.7-9.3); MPV 9.2 FL (7.4-10.4); NEUT# 3.43 X1000 (1.4-6.5); NEUT% 55.3 % (42.2-75.2); PLT 493 X1000 (130-400); RDW 14.9 % (11.5-14.5); WBC 6.21 X1000 (4.8-10.8)
--- NOTE | 2018-08-03 04:59 | PROVIDER DOCUMENTATION ---
HPI-Respiratory General - General Chief Complaint: Shortness of Breath Stated Complaint: SOB (POST OP LUNG SURGERY) Time Seen by Provider: 08/03/18 03:38 Allergies/Adverse Reactions: Patient Allergies Allergy/AdvReac Type Severity Reaction Status Date / Time No Known Allergies Allergy Verified 07/09/18 13:40 Home Medications: Home Medication List Medication Instructions Recorded Confirmed Last Taken Type Atorvastatin Calcium 20 mg PO DAILY 02/09/17 07/09/18 07/08/18 09:00 History Gabapentin 300 mg PO BID 02/09/17 07/09/18 05/02/18 09:00 History Albuterol Sulfate [Proair Hfa] 2 puff INH PRN PRN 04/16/18 07/09/18 07/07/18 09: 00 History Latanoprostene Bunod [Vyzulta] 1 drop BOTH EYES QHS 04/16/18 07/09/18 07/08/18 21:00 History Mometasone/Formoterol [Dulera 200 2 puff INH DAILY 04/16/18 07/09/18 05/02/18 09 :00 History Mcg/5 Mcg Inhaler] Omeprazole 40 mg PO DAILY 04/16/18 07/09/18 07/08/18 09:00 History Hydrocodone/APAP 7.5 mg/325 mg 1 ea PO Q4H PRN PRN #20 tab 07/31/18 Unknown Rx [Rector-7.5] - History of Present Illness-Resp Nature of Presenting Problem: Pt c/o severe SOB and states that she was just released from hospital for lung resection. Pt denies any chest pain. Quality of Pain: reports: none, aching (from surgical site on posterior rt flank.) Severity in ED: reports: mild Onset/Duration: reports: 1-3 hours ago Timing: reports: still present Context: reports: other (recent lung resection on rt side this week.) Cough Quality/Degree: reports: no cough Episode Frequency: occasional episodes Current Respiratory Medication Therapy: Initiated see nurses note Modifying Factors: improves with: exertion Associated Symptoms: reports: shortness of breath Similar Symptoms Previously?: No Recently seen or treated by another doctor?: Yes Review of Systems - Adult - REVIEW OF SYSTEMS - ADULT Constitutional: reports: no symptoms reported, see HPI Eyes: reports: no symptoms reported, see HPI Ears, Nose, Mouth & Throat: reports: no symptoms reported, see HPI Cardiovascular: reports: no symptoms reported, see HPI Respiratory: reports: see HPI, shortness of breath Gastrointestinal: reports: no symptoms reported, see HPI Genitourinary: reports: no symptoms reported, see HPI Musculoskeletal: reports: no symptoms reported, see HPI Integumentary: reports: no symptoms reported, see HPI Neurological: reports: no symptoms reported, see HPI Psychiatric: reports: no symptoms reported, see HPI All Other Systems: Reviewed and Negative Past History - Adult - PAST MEDICAL HISTORY-ADULT Review of Records: reports: Nursing Assessment Review, Medications Reviewed, Social history reviewed & non-contributory. Major Childhood Illnesses: reports: denies history Cardiovascular: reports: hyperlipidemia Respiratory: reports: COPD Gastrointestinal: reports: cancer, GERD, GI bleed Obstetrical/Gynecological: reports: denies history Genitourinary: reports: denies history Musculoskeletal: reports: denies history Neurological: reports: Seizures/Epilepsy Psychiatric: reports: denies history Endocrine/Immune: reports: anemia, Diabetes Other Conditions: reports: other cancer (throat), other (tongue/throat cancer) - PRIOR SURGERIES/PROCEDURES Surgical/Procedure History: reports: BTL, other (tumor removed in throat) - IMMUNIZATION STATUS Childhood Immunizations: See Nurse Assessment Flu Vaccine: See Nurse Assessment - FAMILY HISTORY Family History: reviewed, not pertinent Physical Exam-General - PHYSICAL EXAM-ADULT Initial Vital Signs Reviewed: Yes - CONSTITUTIONAL General Appearance: alert, moderate distress, anxious - EYES Eyes: PERRL/EOMI - HEAD, EARS, NOSE, MOUTH & THROAT HENMT: normocephalic/atraumatic, moist mucous membranes, normal ENT inspection - NECK Neck: non-tender, full range of motion, supple, normal inspection - RESPIRATORY Respiratory: respiratory distress, wheezing (mild), increased rate - CARDIOVASCULAR Cardiovascular: normal peripheral pulses, no edema, no gallop, no JVD, no murmur , tachycardia - GASTROINTESTINAL (ABDOMEN) Abdominal Exam: normal bowel sounds, non tender, soft, no organomegaly, no pulsatile mass - LYMPHATIC Lymphatic: no adenopathy - MUSCULOSKELETAL Back Exam: normal inspection, no CVA tenderness, no vertebral tenderness Extremity: normal range of motion, non-tender, normal gait, normal inspection, no pedal edema, no calf tenderness - SKIN Integumentary: normal color, normal turgor (well healing surgical wound to rt posterior chest wall) - NEUROLOGIC Neurologic: 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 II-XII nml as tested, grossly normal, no motor/sensory deficits - PSYCHIATRIC Psych/Mental Status: normal thought content, normal thought process, oriented x 3, anxious Progress - PLAN OF CARE/RESULTS Progress/Plan/Lab Results: Vital Signs - 8 hr 08/03/18 03:36 08/03/18 03:39 08/03/18 05:20 Temperature 97.7 F Pulse Rate 82 101 H 82 Respiratory Rate 22 27 H 22 Blood Pressure 128/92 128/92 128/92 O2 Sat by Pulse Oximetry 100 100 100 08/03/18 07:02 Temperature Pulse Rate 83 Respiratory Rate 16 Blood Pressure 109/74 O2 Sat by Pulse Oximetry 100 Laboratory Results - last 24 hr 08/03/18 08/03/18 08/03/18 04:25 04:25 04:25 WBC 6.21 RBC 3.80 L Hgb 10.0 L Hct 32.0 L MCV 84.2 MCH 26.3 L MCHC 31.3 L RDW Std Deviation 14.9 H Plt Count 493 H MPV 9.2 Immature Gran % (Auto) 1.9 H Neut % (Auto) 55.3 Lymph % (Auto) 12.2 L [place] % (Auto) 10.1 H Eos % (Auto) 20.0 H Baso % (Auto) 0.5 Immature Gran # (Auto) 0.12 H Neut # (Auto) 3.43 Lymph # (Auto) 0.76 L [place] # (Auto) 0.63 H Eos # (Auto) 1.24 H Baso # (Auto) 0.03 Specimen Type Sample Site pH pCO2 pO2 HCO3 Base Excess Oxyhemoglobin ABG O2 Sat (Calculated) ABG O2 Saturation ABG Carboxyhemoglobin ABG Methemoglobin Kail Test A-a O2 Difference Total Hemoglobin Lactate Liter Flow Blood Gas Modality FiO2 % Sodium 137 Potassium 4.6 Chloride 97 L Carbon Dioxide 25 Anion Gap 15 BUN 7 L Creatinine 0.6 Estimated GFR/1.73 m2 > 60 BUN/Creatinine Ratio 12 Glucose 107 H Calculated Osmolality 272 Calcium 9.3 Total Bilirubin 0.20 AST 16 ALT 17 Alkaline Phosphatase 353 H Creatine Kinase 69 Troponin T Cin-K-Fdpzmrzygty Pept 136 Total Protein 6.6 Albumin 3.4 L Globulin 3.2 Albumin/Globulin Ratio 1.1 08/03/18 08/03/18 04:25 05:05 WBC RBC Hgb Hct MCV MCH MCHC RDW Std Deviation Plt Count MPV Immature Gran % (Auto) Neut % (Auto) Lymph % (Auto) [place] % (Auto) Eos % (Auto) Baso % (Auto) Immature Gran # (Auto) Neut # (Auto) Lymph # (Auto) [place] # (Auto) Eos # (Auto) Baso # (Auto) Specimen Type ARTERIAL Sample Site R RADIAL pH 7.53 H pCO2 32 L pO2 127 H HCO3 28.1 H Base Excess 4.0 H Oxyhemoglobin 97.4 ABG O2 Sat (Calculated) 12.6 L ABG O2 Saturation 99.5 ABG Carboxyhemoglobin 1.30 ABG Methemoglobin 0.8 Akil Test YES A-a O2 Difference 33.0 Total Hemoglobin 9.0 L Lactate 0.70 Liter Flow 2.0 Blood Gas Modality CANNULA FiO2 % 28.0 Sodium Potassium Chloride Carbon Dioxide Anion Gap BUN Creatinine Estimated GFR/1.73 m2 BUN/Creatinine Ratio Glucose Calculated Osmolality Calcium Total Bilirubin AST ALT Alkaline Phosphatase Creatine Kinase Troponin T < 0.010 Wiw-P-Ejicjcgbdgz Pept Total Protein Albumin Globulin Albumin/Globulin Ratio Orders Category Date Time Status cxr [CHEST-1 VIEW] [RAD] Stat Exams 08/03/18 03:39 Taken ABG [RESP] Routine Lab 08/03/18 05:05 Completed CBC WITH ELECTRONIC DIFF [HEME] Stat Lab 08/03/18 04:25 Completed CK TOTAL [CHEM] Stat Lab 08/03/18 04:25 Completed COMPREHENSIVE METABOLIC PANEL [CHEM] Stat Lab 08/03/18 04:25 Completed PRO B-NATRIURETIC PEPTIDE Stat Lab 08/03/18 04:25 Completed TROPONIN T Stat Lab 08/03/18 04:25 Completed Hydromorphone [Dilaudid] Med 08/03/18 05:05 Discontinued 1 mg IV NOW ONE Ondansetron [Zofran] Med 08/03/18 05:05 Discontinued 4 mg IV NOW ONE Oxygen Device Stat Oth 08/03/18 03:40 Active EKG [EKG] Stat Ther 08/03/18 03:43 Ordered I discussed with the patient and and explained the plan for her. I will consult the hospitalist. Result Diagrams: 08/03/18 04:25 08/03/18 04:25 - EKG 1 Time of EKG reading by physician:: 04:58 EKG Read and Signed by:: Nazario Gonzalez EKG Interpretation (*Must complete 3 of following elements*): Normal Rate: 89 Rhythm: regular Fowler: normal QRS: normal CT Interval: normal ST Wave: normal - XRAY 1 XRAY: Bilateral XRAY Study: Chest Impression: Abnormal (rt sided partial lung resection.) - CONSULTS/PCP/HOSPITALIST Notification #1 *Consult/PCP/Hospitalist*: Dr Alvarado Time Discussed: 05:24 Consult Disposition: Admit (advised that he would present to day shift to admit) #2 Consult: Dagoberto with Dr. Thompson Time Discussed: 07:15 Consult Disposition: Admit - CHANGE OF SHIFT REPORT (ED Provider) Report Given and Care Transferred to:: Dr Freeman Time of Transfer: 05:30 Items Pending: Labs, XRAY Results Departure - Departure Date of Disposition Decision: 08/03/18 Time of Disposition Decision: 07:16 DIAGNOSIS: Pleural effusion Disposition: ADMITTED INPATIENT 09 Certified Medical Emergency: Emergent Condition: Fair Referrals and Follow-Ups: None,PCP [Primary Care Provider] - - Critical Care Note This patient required my direct & personal management of CC.: No Attestation - Physician/ IAN Attestation The physician spent face to face time with patient:: Yes Advanced Practice Provider documentation review:: Supervising physician onsite and consulted in the evaluation and care of this patient. The physician did have a face to face encounter with the patient.
[2018-08-03] MEDS ORDERED: DILAUDID IV ONE (05:05)
[2018-08-03] MEDS ORDERED: ZOFRAN IV ONE (05:05)
[2018-08-03 05:10] LABS: ALLEN TEST YES; BLOOD TYPE ARTERIAL; HCO3-(ACT) 28.1 mmoll (20.0-26.0); METHB 0.8 % (0.0-1.5); O2(CT) 12.6 mL/dL (15.0-23.0); O2HB 97.4 % (95.0-99.0); PCO2(98.6) 32 mmHg (35-45); PO2(98.6) 127 mmHg (60-100); SAMPLE BLOOD; SAO2 99.5 % (95.0-100.0); pH(98.6) 7.53 (7.35-7.45)
[2018-08-03 05:11] LABS: MODALITY CANNULA
[2018-08-03 05:12] LABS: AGAP 15; ALB/GLOB RATIO 1.1; ALBUMIN 3.4 g/dL (3.5-5.0); ALKALINE PHOSPHATASE 353 U/L (32-104); BUN 7 mg/dL (8-22); CALCIUM 9.3 mg/dL (8.8-10.2); CHLORIDE 97 mmol/L (98-107); CK TOTAL 69 U/L (24-173); COSMO 272; CREATININE 0.6 mg/dL (0.5-0.9); ESTIMATED GFR > 60; GLUCOSE 107 mg/dL (70-104); GOT 16 U/L (10-30); GPT 17 U/L (10-36); POTASSIUM 4.6 mmol/L (3.5-5.1); SODIUM 137 mmol/L (136-145); TCO2 25 mmol/L (25-35); TOTAL PROTEIN 6.6 g/dL (6.3-8.3)
--- NOTE | 2018-08-03 07:26 | Diag Imaging Result Doc PS360 ---
EXAM: CHEST-1 VIEW HISTORY: sob TECHNIQUE: Chest single view COMPARISON: 07/30/2018 FINDINGS: There are sutures in the right hemithorax and skin yola overlie the right chest. The right sided PICC line has been removed. There is atelectasis to the right lung with a contusion or infiltrates in the mid right lung. These are less pronounced than on the prior study. The left lung remains well expanded and clear. No cardiomegaly. IMPRESSION: Mild interval improvement. Electronically signed by Fawad Lemos 08/03/2018 7:24 AM
--- NOTE | 2018-08-03 08:56 | EKG Report ---
Test Performed on : 08/03/2018 03:37:19 AM Test Reason : SOB Blood Pressure : / mmHG Vent. Rate : 089 BPM Atrial Rate : 089 BPM P-R Int : 164 ms QRS Dur : 074 ms QT Int : 354 ms P-R-T Axes : 066 026 034 degrees QTc Int : 430 ms Normal sinus rhythm. Normal ECG When compared with ECG of 09-JUL-2018 12:08, (Unconfirmed) No significant change was found Unconfirmed Result
[2018-08-03] MEDS ORDERED: DUONEB (A & A) INH PRN (09:13)
[2018-08-03] MEDS ORDERED: NORCO-7.5 PO PRN (09:22)
--- NOTE | 2018-08-03 09:52 | Diag Imaging Result Doc PS360 ---
CT THORAX W/O CONTRAST - 08/03/2018 INDICATION: post op lung resection, dyspnea, chest pain COMPARISON: 08/03/2018, 07/30/2018, 07/09/2018 FINDINGS: There is a tiny right apical pneumothorax. There is a small basilar pleural effusion. No chest tube. There is advanced COPD. Anemia is present. Heart size is normal. There are tiny bilateral nonobstructing renal stones measuring about 1-2 mm. IMPRESSION: Trace right pneumothorax. Small right pleural effusion. This exam was performed using automated exposure control, adjustment of mA or kV according to patient size, and/or use of iterative reconstruction technique Electronically signed by Quinton Lange 08/03/2018 9:50 AM
[2018-08-03 10:41] LABS: INR 1.09
[2018-08-03 10:56] LABS: AGAP 15; ALB/GLOB RATIO 1.3; ALKALINE PHOSPHATASE 370 U/L (32-104); BUN 7 mg/dL (8-22); CALCIUM 9.7 mg/dL (8.8-10.2); CHLORIDE 97 mmol/L (98-107); COSMO 274; CREATININE 0.6 mg/dL (0.5-0.9); ESTIMATED GFR > 60; GLUCOSE 97 mg/dL (70-104); GOT 16 U/L (10-30); GPT 17 U/L (10-36); POTASSIUM 4.7 mmol/L (3.5-5.1); SODIUM 138 mmol/L (136-145); TCO2 26 mmol/L (25-35); TOTAL BILIRUBIN 0.27 mg/dL (0.20-1.00)
[2018-08-03] MEDS: DUONEB (A & A) INH SCH ×4 (11:47→23:32)
[2018-08-03 12:17] LABS: URINE SOURCE CATH
[2018-08-03 12:24] LABS: BILIRUBIN URINE NEGATIVE (NEGATIVE); BLOOD URINE NEGATIVE (NEGATIVE); COLOR YELLOW; GLUCOSE URINE NEGATIVE (NEGATIVE); KETONE URINE NEGATIVE (NEGATIVE); LEUKOCYTES URINE NEGATIVE (NEGATIVE); NITRITE URINE NEGATIVE (NEGATIVE); PH URINE 7.5; PROTEIN URINE TRACE mg/dL (NEGATIVE); SP GRAVITY URINE 1.015; TURBIDITY URINE HAZY (CLEAR); UROBILINOGEN URINE NORMAL (NORMAL)
[2018-08-03 12:25] LABS: UR EPITHELIAL CELLS <10 /HPF (<10); URINE BACTERIA NEGATIVE /HPF; URINE RBC <10 /HPF (<10); URINE WBC <10 /HPF (<10)
[2018-08-03 12:43] LABS: UR AMPHETAMINES QUAL NONE DETECTED (NONE DETECT); UR BARBITUATES QUAL NONE DETECTED (NONE DETECT); UR BENZODIAZEPIN QUAL NONE DETECTED (NONE DETECT); UR CANNABINOIDS QUAL PRESUMPTIVE POSITIVE (NONE DETECT); UR COCAINE QUAL NONE DETECTED (NONE DETECT); UR METHADONE QUAL NONE DETECTED (NONE DETECT); UR OPIATES QUAL PRESUMPTIVE POSITIVE (NONE DETECT); UR OXYCODONE QUAL NONE DETECTED (NONE DETECT); UR PCP QUAL NONE DETECTED (NONE DETECT)
[2018-08-03] MEDS ORDERED: MORPHINE IV PRN (14:05)
--- NOTE | 2018-08-03 16:00 | Diag Imaging Result Doc PS360 ---
LUNG SCAN / VQ - 08/03/2018 INDICATION: dyspnea, post surgery, increased d-dimer TECHNIQUE: 32.8 mCi of DTPA was used for inhalation. 5.9 mCi of MAA was used for injection. COMPARISON: Chest x-ray from earlier today FINDINGS: There is normal localization pattern of the radiotracers. No evidence of pulmonary embolism. IMPRESSION: Negative for pulmonary embolism. Electronically signed by Quinton Lange 08/03/2018 3:57 PM
[2018-08-03] MEDS ORDERED: VENTOLIN HFA INH PRN (17:14)
[2018-08-03] MEDS: NS 1,000 ML IV SCH (18:19)
--- NOTE | 2018-08-03 18:28 | HISTORY AND PHYSICAL ---
HISTORY OF PRESENT ILLNESS: The patient is 57. She has had significant pain and discomfort associated with recent thoracotomy. In fact, she still has her yola from her thoracotomy and lobectomy. She has a history of COPD and dyspnea. She came in because she has much more severe right-sided chest pain. It started getting worse this morning around 5 a.m. She also felt like she could not breathe. Fortunately, she has not had a productive cough. No fevers, no chills. She does report some night sweats. The pathology from her lobectomy, because there was concern over malignancy, was negative. She had necrotizing granulomatous lesions. Again, she had worsening pain and that was the main reason for admission. Her workup was fairly benign, though. No fever. She was not hypoxic, 100% on 2 L. She had no white count. Her blood gas looked fairly stable. Her x-ray showed postoperative changes, but really actually looked better than when she left, so not really a clear source for this chest pain. PAST MEDICAL HISTORY: 1. COPD. 2. Dyslipidemia. 3. GERD. 4. Chronic pain disorder. 5. Polysubstance abuse. PAST SURGICAL HISTORY: 1. Again, she had the fairly recent lobectomy. She does have pain in her right upper quadrant, but I think that is probably related to her recent thoracotomy. 2. Esophageal tumor excision. 3. Brain aneurysm repair. ALLERGIES: No known drug allergies. MEDICATIONS: She is on Vyzulta for her eye, albuterol, atorvastatin 20, gabapentin 300 b.i.d., Dulera 2 puffs daily, omeprazole 40 daily, [place] p.r.n. REVIEW OF SYSTEMS: Negative times a 10-point review of systems. FAMILY HISTORY: Mother had ovarian cancer, at 71. SOCIAL HISTORY: I am not sure she is still smoking, but I think she at least has a 20- to 25-pack- year history of smoking. PHYSICAL EXAMINATION: VITAL SIGNS: Blood pressure 109/81, heart rate 80, respiratory rate 16, temperature 98.1 degrees. GENERAL: Thin female in no acute distress. HEAD: Normocephalic atraumatic. EYES: Pupils equal, round, and reactive to light. Extraocular movements intact. Sclerae anicteric. EARS, NOSE, THROAT: She had moist mucous membranes. No lesions noted. CARDIOVASCULAR: Regular rate and rhythm. No murmurs, gallops, or rubs. PULMONARY: Bilateral breath sounds clear to auscultation. No wheezes. Occasional rales. GASTROINTESTINAL: Soft, nontender, nondistended. Bowel sounds are positive. NEUROLOGICAL: Nonfocal. Cranial nerves 2-12 were intact. MUSCULOSKELETAL: 4/5 in all 4 extremities. SKIN: Clean, dry, and intact. Obviously, she had yola from her thoracotomy scar, but the wound looked very well. No erythema or anything of that sort. LABORATORY DATA: White count 6, hemoglobin and hematocrit 10 and 32, platelets 493,000. D-dimer understandably after recent thoracotomy was elevated at 6.24. pH 7.53, pCO2 32, PaO2 127. Basic was normal. UDS was negative. DIAGNOSTIC STUDIES: Chest x-ray showed postoperative changes, nothing new. ASSESSMENT: This is a 57-year-old female with recent thoracotomy and lobectomy related to a necrotizing pneumonia, who presents with severe chest pain and shortness of breath. PLAN: 1. Chest pain and shortness of breath. We will continue to monitor on telemetry and get serial cardiac enzymes. I am going to get an opinion from Dr. Robledo and Dr. Rowell. I guess we are looking at evaluating for pulmonary embolism and any cardiac issues. Will probably also get an echo and re-evaluate. Hopefully some more information gives us more particular information as to what is the etiology of her pain. 2. Chronic obstructive pulmonary disease. Will continue her breathing treatments. She is fairly well compensated. 3. Hypertension. Continue her regular atorvastatin and follow. DISPOSITION: Pending her clinical status. cc: MD Christiano Lopez MD Robert C. Walker, MD
--- NOTE | 2018-08-03 19:12 | GENERAL SURGERY PROGRESS NOTE ---
DATE: 08/03/2018 DATE AND TIME: Date is 08/03/2018, 4:21 p.m. SUBJECTIVE: Ms. Mo came in last night with shortness of breath. However, her workup is quite unremarkable. Her chest x-ray looks better. Her CT shows almost complete expansion of her right lung. Minimal fluid is present. There is no evidence of pulmonary embolism. OBJECTIVE: On exam, she has breath sounds bilaterally. Her wound looks good. PLAN: The plan is to remove her yola, which I have done. I think she is progressing well postop. cc: Jamin Rowell MD
[2018-08-03] MEDS: NORCO-7.5 PO PRN (21:16)
[2018-08-03] MEDS: PATIENT'S OWN MED BOTH EYES SCH (21:16)
[2018-08-03] MEDS: LACTULOSE PO SCH (21:17)
[2018-08-03] MEDS: NEURONTIN PO SCH (21:17)
[2018-08-03] MEDS: MIRALAX PO SCH (21:17)
[2018-08-03] MEDS: LOVENOX SUBQ SCH (21:17)
[2018-08-03] MEDS: DULERA 200 MCG/5 MCG INHALER INH SCH (22:35)
--- NOTE | 2018-08-04 00:36 | PULMONOLOGY CONSULTATION ---
DATE: 08/03/2018 REQUESTING PHYSICIAN: Dr. Thompson. REASON FOR CONSULTATION: Shortness of breath. HISTORY OF PRESENT ILLNESS: Ms. Mo is a 57-year-old white female who had a progressive cavitary lesion in the right lower lobe and was recently admitted to the hospital. She underwent resection of this lobe which revealed granulomatous changes but no evidence of malignancy and AFB and special stains were negative. She was being followed by Infectious Disease and treatment for possible histoplasmosis was entertained. The patient was discharged 07/31/2018. The patient reports sudden onset shortness of breath and returned to the emergency room early this morning. CT scan of the thorax revealed postsurgical changes with small pneumothorax. The patient had a small pneumothorax present at the time of discharge. I reviewed the labs earlier today and patient had an elevated D-dimer at 6.24. She underwent a V/Q scan, which revealed no evidence of pulmonary embolism. She reports her shortness of breath has improved. PAST MEDICAL HISTORY: 1. COPD with recent resection of her lung as per above. 2. History of alcohol use/abuse. 3. History of negative workup for tuberculosis. 4. Dyslipidemia. 5. Sleep apnea. 6. History of brain aneurysm. 7. Status post bilateral tubal ligation. SOCIAL HISTORY: The patient denies tobacco or alcohol use. FAMILY HISTORY: Noncontributory. REVIEW OF SYSTEMS: As noted in the HPI. She reports she had sudden onset shortness of breath and she has had intermittent epigastric pain which has been chronic. Otherwise, her review of systems is negative except for occasional chills and sweats. PHYSICAL EXAMINATION: General: Reveals a well-developed, well-nourished female who appears comfortable and in no distress. She has been afebrile during this hospital stay. BP 106/78, heart rate 79, respiratory rate 17, oxygen saturation 100%. HEENT: Pupils are equal and reactive. Oropharynx is clear. Neck: Supple. Chest: Reveals crackles at the right base. Cardiac: S1-S2. Abdomen: Soft and without hepatosplenomegaly. Extremities: Without edema. LABORATORIES: 1. CT scan as per HPI. 2. V/Q scan as per HPI. 3. White blood count 6.21, hemoglobin 10.0, platelet count 493,000. Arterial blood gas, pH 7.53, pCO2 of 32, PO2 of 127 on 2 L per nasal cannula. The D-dimer was elevated at 6.24. IMPRESSION: A 57-year-old with recent surgery, who presents to the hospital with shortness of breath. She has prolonged expiratory phase on exam but no overt wheezing. Cardiac enzymes are negative. CT scan appears appropriate for postsurgical findings. Her cardiac enzymes were negative. Etiology for her dyspnea is not clear. The patient does have a small pneumothorax but it does not appear to be significantly bigger than at the time of discharge. She has mild hypoxemic respiratory failure, but does have a component of hyperventilation. RECOMMENDATION: 1. Obtain blood cultures to rule out bacteremia although she does not have fevers or significant leukocytosis. 2. DVT prophylaxis. 3. Agree with echocardiogram. 4. Will follow patient's clinical course. cc: Christiano Robledo MD
[2018-08-04] MEDS: DUONEB (A & A) INH SCH ×6 (03:23→23:04)
--- NOTE | 2018-08-04 06:05 | Extremity Venous Study ---
PROCEDURE NAME: Venous U/S Bilateral Legs - 08/03/2018 REQUESTING PHYSICIAN: Dr. Robledo. PROCESS ANALYST: Reta. INDICATIONS: 1. Dyspnea. 2. Status post lung surgery. 3. Elevated D-dimer. EQUIPMENT: Proximagen Vivid E9 ultrasound system with a 9 L-D transducer. FINDINGS: Images of the bilateral lower extremity venous systems were obtained in both sagittal and transverse planes. Doppler was used to evaluate veins for spontaneity, phasicity, respiratory excursion, and digital augmentation. RESULTS: Normal venous compression and normal venous flow. No obvious superficial or deep venous thrombosis noted. INTERPRETATION: Essentially normal bilateral lower extremity venous study. cc: MD Christiano King MD
[2018-08-04] MEDS: NS 1,000 ML IV SCH ×2 (06:07→10:32)
[2018-08-04 07:40] LABS: BASO# 0.03 X1000 (0.0-0.2); BASO% 0.5 % (0.0-0.8); EOS# 0.54 X1000 (0.0-0.7); EOS% 9.7 % (0.0-10.0); HEMATOCRIT 28.5 % (37.0-47.0); HEMOGLOBIN 8.8 g/dL (12.0-16.0); IMM GRAN# 0.02 X1000 (0.0-0.04); IMM GRAN% 0.4 % (0.0-0.5); LYMPH# 0.96 X1000 (1.2-3.4); LYMPH% 17.2 % (20.5-51.1); MCH 26.6 PG (27-31); MCHC 30.9 g/dL (33-37); MCV 86.1 FL (81-99); MONO# 0.78 X1000 (0.11-0.59); MPV 8.4 FL (7.4-10.4); NEUT# 3.26 X1000 (1.4-6.5); NEUT% 58.2 % (42.2-75.2); PLT 832 X1000 (130-400); RBC 3.31 XMIL (4.2-5.4); WBC 5.59 X1000 (4.8-10.8)
[2018-08-04 07:41] LABS: AGAP 11; BUN 6 mg/dL (8-22); CALCIUM 8.9 mg/dL (8.8-10.2); CHLORIDE 101 mmol/L (98-107); COSMO 270; CREATININE 0.6 mg/dL (0.5-0.9); ESTIMATED GFR > 60; GLUCOSE 99 mg/dL (70-104); MAGNESIUM 1.7 mg/dL (1.5-2.7); POTASSIUM 4.1 mmol/L (3.5-5.1); SODIUM 136 mmol/L (136-145); TCO2 24 mmol/L (25-35)
[2018-08-04 08:03] LABS: EOS 2 % (1-10); LYMPHS 30 % (21-51); MONO 18 % (1-9); SEGS 50 % (42-75)
[2018-08-04] MEDS: DULERA 200 MCG/5 MCG INHALER INH SCH ×2 (08:07→19:50)
[2018-08-04] MEDS ORDERED: NON-FORMULARY MED (Omeprazole [Omeprazole] 40 MG) PO SCH (09:00)
[2018-08-04] MEDS ORDERED: PRILOSEC PO SCH (09:00)
[2018-08-04] MEDS ORDERED: DULERA 200 MCG/5 MCG INHALER INH SCH (09:00)
[2018-08-04] MEDS: LACTULOSE PO SCH (09:40)
[2018-08-04] MEDS: NORCO-7.5 PO PRN ×3 (09:42→21:57)
[2018-08-04] MEDS: NEURONTIN PO SCH ×2 (09:42→21:57)
[2018-08-04] MEDS: LIPITOR PO SCH (09:42)
[2018-08-04] MEDS: MIRALAX PO SCH (09:43)
[2018-08-04] MEDS: PROTONIX IV SCH ×2 (10:32→21:58)
--- NOTE | 2018-08-04 10:33 | PROGRESS NOTE ---
DATE: 08/04/2018 SUBJECTIVE: This patient is complaining of epigastric pain and right upper quadrant pain. Also, she is complaining of right-sided chest pain close to surgery wound. I do not see any source of infection or discharge in that place. She describes the epigastric pain as a burning sensation. She had an EGD done a couple of months ago on April of 2018 that showed gastritis. I will put this patient on Protonix twice a day. I will also start Carafate. I will wait for the echocardiogram as well. OBJECTIVE: Vital Signs: Temperature 97.8 degrees, pulse 76, respiratory rate 18, blood pressure 109/71, and oxygen saturation 100% on nasal cannula. HEENT: Head normocephalic. No trauma. PERRLA. Neck: Supple. No JVD. No masses. Central trachea. Chest: Painful to palpation at the level of the right area close to the wound, decreased breath sounds at the bases mostly on the right side with some crepitus. Abdomen: Soft. Tenderness to palpation at the level of the epigastric area and right upper quadrant. No signs of peritoneal irritation. Positive bowel sounds. She describes the pain as a burning sensation. Extremities: No edema. No clubbing. No cyanosis. Neurological: The patient is alert and oriented x3. No focal deficits. LABORATORY: WBC 5.5, hemoglobin 8.8, hematocrit 28.5, and platelets of 832,000. Sodium 136, potassium 4.1, chloride 101, bicarbonate 24, BUN 6, creatinine 0.6, glucose 99, calcium 8.9, and magnesium 1.7. ASSESSMENT AND PLAN: 1. Chest pain and shortness of breath. Her respiratory rate has been stable. She has some crepitus and decreased breath sounds mostly on the right side. Painful to palpation at the level of the surgical area, but she is having some pain also in the epigastric and right upper quadrant. She describes the pain as a burning sensation. She had an endoscopy done three months ago that showed gastritis. I will place this patient on PPIs twice a day IV, and also Carafate. I will monitor. 2. Shortness of breath. As above. 3. Epigastric and right upper quadrant pain. Her abdomen is soft, but tender to palpation at the level of the epigastric area and right upper quadrant. She describes the pain as a burning sensation so I will start this patient on Protonix twice a day and Carafate 4 times a day. I will monitor this patient closely pending echocardiogram. 4. Elevated D-dimer, negative V/Q scan and lower extremity ultrasound. We will monitor for now. She is status post surgery. 5. COPD not in exacerbation at this moment. Continue breathing treatment. I think she is compensated. 6. Hypertension. Stable. 7. Dyslipidemia. Continue with atorvastatin. 8. Anemia. We will monitor for now. cc: Janusz Castillo MD
[2018-08-04] MEDS: CARAFATE PO SCH ×3 (12:13→21:57)
[2018-08-04] MEDS: NICODERM PATCH TD SCH (16:42)
[2018-08-04] MEDS: SODIUM CHLORIDE 0.9% INJ SCH (21:58)
[2018-08-04] MEDS: LOVENOX SUBQ SCH (21:58)
[2018-08-04] MEDS: PATIENT'S OWN MED BOTH EYES SCH (21:59)
--- NOTE | 2018-08-05 00:14 | ECHO REPORT ---
ORDER DATE: 08/03/2018 MEASUREMENTS: Left ventricular end-diastolic diameter 3.4, end systolic diameter 2.1, septal thickness 0.8, posterior wall thickness 0.8, aortic root 3.4, left atrium 2.3. SUMMARY: 1. Fair quality study. 2. Aortic valve not well imaged but appears to open adequately on 2-dimensional images. Peak gradient across the valve is approximately 10 mmHg. There is trace aortic regurgitation. Mitral, tricuspid, and pulmonic valves are without evidence of structural abnormality with mild tricuspid regurgitation. Estimated systolic PA pressure by Doppler is 35 mmHg, suggesting mild pulmonary hypertension. The aortic root is normal size. 3. Normal left ventricular dimensions suggested. Estimated left ejection fraction appears to be at least 65%. No regional wall motion abnormalities are evident. Left atrium, right atrium, and right ventricle are normal size with grossly preserved right ventricular systolic function. 4. No pericardial effusion. 5. Appearance. of inferior vena cava suggests normal central venous pressure. cc: MD Williams Shelby MD
--- NOTE | 2018-08-05 01:32 | PULMONOLOGY PROGRESS NOTE ---
DATE: 08/04/2018 SUBJECTIVE: The patient reports some epigastric pain earlier today but better this evening. She reports her breathing has improved. OBJECTIVE: Vital Signs: BP 91/66, heart rate 86, respiratory rate 15, oxygen saturation 100%. HEENT: Pupils are equal and reactive. Oropharynx is clear. Neck: Is supple. Chest: Reveals mild prolonged expiratory phase without wheezing or rhonchi. Cardiac: S1-S2. Abdomen: Soft without hepatosplenomegaly. Extremities: Without edema. IMPRESSION: A 57-year-old with chronic obstructive pulmonary disease, small pneumothorax, dyspnea on exertion with epigastric pain and mild hypoxemic respiratory failure. Clinically she continues to improve. RECOMMENDATIONS: 1. Continue bronchodilators. 2. Wean oxygen as tolerated. 3. Continue DVT prophylaxis. 4. Physical therapy and ambulate as tolerated. cc: Christiano Robledo MD
[2018-08-05] MEDS: DUONEB (A & A) INH SCH ×6 (03:35→23:25)
[2018-08-05] MEDS: NS 1,000 ML IV SCH ×2 (03:49→17:08)
[2018-08-05] MEDS: CARAFATE PO SCH ×4 (06:27→21:10)
[2018-08-05] MEDS: NORCO-7.5 PO PRN ×4 (06:32→21:10)
[2018-08-05 07:18] LABS: BASO# 0.02 X1000 (0.0-0.2); BASO% 0.4 % (0.0-0.8); EOS# 0.44 X1000 (0.0-0.7); EOS% 8.1 % (0.0-10.0); HEMATOCRIT 26.7 % (37.0-47.0); HEMOGLOBIN 8.3 g/dL (12.0-16.0); IMM GRAN# 0.02 X1000 (0.0-0.04); IMM GRAN% 0.4 % (0.0-0.5); LYMPH# 1.18 X1000 (1.2-3.4); LYMPH% 21.6 % (20.5-51.1); MCH 26.9 PG (27-31); MCHC 31.1 g/dL (33-37); MCV 86.4 FL (81-99); MONO# 0.68 X1000 (0.11-0.59); MONO% 12.5 % (1.7-9.3); MPV 8.2 FL (7.4-10.4); NEUT# 3.12 X1000 (1.4-6.5); PLT 787 X1000 (130-400); RBC 3.09 XMIL (4.2-5.4); RDW 14.9 % (11.5-14.5); WBC 5.46 X1000 (4.8-10.8)
[2018-08-05 07:30] LABS: AGAP 12; ALBUMIN 2.9 g/dL (3.5-5.0); ALKALINE PHOSPHATASE 239 U/L (32-104); BUN 4 mg/dL (8-22); CALCIUM 8.7 mg/dL (8.8-10.2); CHLORIDE 106 mmol/L (98-107); COSMO 276; CREATININE 0.5 mg/dL (0.5-0.9); ESTIMATED GFR > 60; GLUCOSE 96 mg/dL (70-104); GOT 14 U/L (10-30); GPT 11 U/L (10-36); POTASSIUM 3.6 mmol/L (3.5-5.1); SODIUM 140 mmol/L (136-145); TCO2 22 mmol/L (25-35); TOTAL BILIRUBIN 0.16 mg/dL (0.20-1.00); TOTAL PROTEIN 5.9 g/dL (6.3-8.3)
[2018-08-05 07:53] LABS: LYMPHS 20 % (21-51); MONO 12 % (1-9); SEGS 68 % (42-75)
[2018-08-05] MEDS: DULERA 200 MCG/5 MCG INHALER INH SCH ×2 (08:03→19:45)
[2018-08-05] MEDS ORDERED: G.I. COCKTAIL PO ONE (10:29)
[2018-08-05] MEDS ORDERED: PROTONIX IV ONE (10:31)
[2018-08-05] MEDS ORDERED: SODIUM CHLORIDE 0.9% INJ ONE (10:31)
--- NOTE | 2018-08-05 11:05 | PROGRESS NOTE ---
DATE: 08/05/2018 SUBJECTIVE: This patient is still complaining of epigastric pain, burning sensation in nature. Also, she was complaining of some nausea during the night. I do believe she has severe gastritis. I put her on pantoprazole twice a day and Carafate. I will get Gastroenterology Department, , who has seen this patient before. Endoscopy in March showed gastritis. OBJECTIVE: Vital Signs: Temperature 98.1 degrees, pulse 84, respiratory rate 18, blood pressure 125/84, oxygen saturation 99 on 2 L of nasal cannula. HEENT: Head normocephalic. No trauma. PERRLA. Neck: Supple. No JVD. No masses. Central trachea. Chest: Painful to palpation in the right area close to the wound decreased breath sounds at the bases mostly on the right side with some crepitus. The wound looks clean, dry, and intact. No yola. Abdomen: Soft. Tender to palpation at the level of the epigastric and right upper quadrant. No signs of peritoneal irritation. Positive bowel sounds. Extremities: No edema. No clubbing. No cyanosis. Neurological: The patient is alert and oriented x3. No focal deficits. LABORATORY: WBC 5.4, hemoglobin 8.3, hematocrit 26.7, platelets 788,000. Sodium 140, potassium 3.6, chloride 106, bicarbonate 22, BUN 4, creatinine 0.5, glucose 96, calcium 8.7. AST 14, ALT 11, alkaline phosphatase 239, albumin 2.9. ASSESSMENT AND PLAN: 1. Chest pain and shortness of breath. Her breathing has been stable. She is complaining mostly of abdominal pain. She has some decreased breath sounds on the right side but she had a surgery previously. The wound looks fine. We will continue weaning the oxygen off. 2. Shortness of breath. As above. This is getting better. 3. Severe epigastric and right upper quadrant pain. Her abdomen is soft. Tenderness to palpation at the level of the epigastric area and right upper quadrant. She described the pain as a burning sensation. I have placed this patient on Protonix twice a day and Carafate 4 times a day. I will monitor this patient closely, and I will request an evaluation by Gastroenterology Department. Previous endoscopy showed gastritis. 4. Elevated D-dimer, negative Ventilation/Perfusion scan and lower extremity venous ultrasound. Will monitor for now. She is status post surgery and likely this is the source of the elevated D-dimer. 5. Chronic obstructive pulmonary disease, not in exacerbation at this moment. 6. Hypertension, stable. 7. Dyslipidemia. Continue with atorvastatin. 8. Anemia. Will monitor for now. cc: Janusz Castillo MD
[2018-08-05] MEDS: LIPITOR PO SCH (11:06)
[2018-08-05] MEDS: NICODERM PATCH TD SCH (11:06)
[2018-08-05] MEDS: MIRALAX PO SCH (11:23)
[2018-08-05] MEDS: NEURONTIN PO SCH ×2 (11:23→21:10)
[2018-08-05] MEDS: ZOFRAN IV PRN (11:24)
[2018-08-05] MEDS: PROTONIX IV SCH ×2 (12:34→21:10)
--- NOTE | 2018-08-05 15:01 | CONSULTATION ---
DATE OF CONSULTATION: 08/05/2018 REASON FOR CONSULTATION: Abdominal pain. HISTORY OF PRESENT ILLNESS: This is a 57-year-old female, who had recent right lower lobe lobectomy/thoracotomy for a cavitary lesion in the right lower lobe. She underwent resection of the lower lobe that revealed granulomatous changes, but no evidence of malignancy. Patient was discharged on 07/31/2018. The patient returned to the emergency room this admission with progressive shortness of breath and chest pain. She has undergone evaluation including CT scan, which revealed post surgical changes with small pneumothorax. Pneumothorax was also present at the time of discharge. She has had other workup, including a V/ Q scan that showed no evidence of pulmonary embolism. Currently patient is sitting up in the bed in no acute distress. She states her pain has improved. She does report some abdominal pain that is worse on the right side. She reports a burning in the abdomen especially after eating. Ms. Mo was a patient of , and we will be taking over her care since she is currently not practicing. I have reviewed office notes and records from . The patient has had multiple workups since February with including an EGD that showed hiatal hernia, oropharyngeal nodule, Schatzki's ring and gastritis. EGD was done in March 2018. She had a colonoscopy in April 2018 that showed ileitis, pancolitis, diverticulosis, a rectal polyp and hemorrhoids. On reviewing the records, patient did have an inflammatory bowel disease panel that showed possibility of Crohn disease. The patient was never started on any medication. I believe her lung issue had taken precedence, and she was not able to follow back with before she finished her practice. The patient also had an ultrasound that showed no evidence of gallstones. She had a HIDA scan that was normal showing 98% ejection fraction. Patient also had a barium swallow and CT scans. Patient states when she was discharged after her lung surgery, she did not remember taking her anti-reflux medications. She was a little confused on what medications she was supposed to be taking. Again, patient had not followed back with after her workup due to her recent lung surgery. PAST MEDICAL HISTORY: COPD, history of recent thoracotomy and lobectomy, right , July 2018. GERD. Chronic pain disorder. Polysubstance abuse. PAST SURGICAL HISTORY: Recent thoracotomy/lobectomy right lower lobe. History of EGD and colonoscopy in March and April of 2018. History of brain aneurysm repair. History of throat cancer with esophageal tumor excision. ALLERGIES: No known drug allergies. HOME MEDICATIONS: Albuterol inhaler as needed, atorvastatin 20 mg daily, gabapentin 300 mg twice a day, [place] 7.5 every 4 hours as needed, Vyzulta eye drops every night. Dulera inhaler daily. Omeprazole 40 mg daily. SOCIAL HISTORY: Remote history of tobacco use, history of alcohol use. She is . She has 4 children. PHYSICAL EXAMINATION: Vital Signs: Temperature 98.1 degrees, pulse 84, respirations 18, blood pressure 125/84. General: Generally patient is sitting up in the bed in no acute distress. Currently she does not have oxygen in place. I do not notice any current dyspnea as we are talking. HEENT: Normocephalic, atraumatic. Pupils equal, round, reactive to light. Sclerae nonicteric. Respiratory: Decreased breath sounds on the right side. Patient has had recent thoracotomy/lobectomy. Incision site is healing. [place] have been removed. Cardiovascular: Regular rate and rhythm. Abdomen: Soft. Tenderness elicited with palpation to the right upper quadrant and epigastric area. Bowel sounds are positive. Extremities: No lower extremity edema noted. Pedal pulses present bilaterally. Neurologic: The patient is awake and alert. No acute distress. She is oriented to person, place, and time. DIAGNOSTIC RESULTS: Laboratory: Hematology: WBC 5.46, hemoglobin 8.3, hematocrit 26.7, MCV 86.4, platelets 787. Chemistry: Sodium 140, potassium 3.6, chloride 106, CO2 of 22. BUN 4, creatinine 0.5, glucose 96, total bilirubin 0.16. AST 14, ALT 11, alkaline phosphatase 239. Imaging studies: Lung V/Q scan showed negative for pulmonary embolism. Chest CT showed trace right pneumothorax, small right pleural effusion. Extremity Doppler studies of bilateral legs showed normal venous compression and venous flow. No evidence of superficial or deep venous thrombosis is noted. ASSESSMENT AND PLAN: 1. Recent right thoracotomy/lobectomy on 07/31/2018. Patient has been evaluated by Dr. Rowell. Her x-ray is stable compared to prior to discharge. 2. Shortness of breath. Chest pain. Continue respiratory management. Her dyspnea and shortness of breath have improved since admission. 3. Abdominal pain. Patient does have tenderness in the epigastric area, the right upper quadrant. She has had multiple workup by including esophagogastroduodenoscopy, colonoscopy. Esophagogastroduodenoscopy had showed gastritis. Recommend twice a day proton pump inhibitor and continue Carafate that was already started I have discussed with the patient about her diet, follow strict anti-reflux measures and avoid spicy foods, avoid carbonated drinks. Patient also had colitis noted on colonoscopy in April. She was a patient of . We will have to review her full records and workup. Then further plans to be made as needed. I have instructed patient to follow up with us in the office after discharge in approximately 3 weeks. Again, further plans will be made as needed, but I recommend strongly she continue her medication at home once discharged. Further plans will be made according to patient's progress. I have discussed this case with Dr. Hidalgo. Dictated by ANA Perez for Abdifatah Hidalgo MD cc: ANA Fonseca MD [facility]
[2018-08-05] MEDS: LOVENOX SUBQ SCH (21:10)
[2018-08-05] MEDS: PATIENT'S OWN MED BOTH EYES SCH (21:10)
[2018-08-06] MEDS: NORCO-7.5 PO PRN ×4 (00:35→20:44)
[2018-08-06] MEDS: NS 1,000 ML IV SCH ×2 (00:36→06:56)
[2018-08-06] MEDS: DUONEB (A & A) INH SCH ×6 (03:37→23:53)
[2018-08-06] MEDS: CARAFATE PO SCH ×4 (06:51→20:44)
[2018-08-06 07:09] LABS: BASO# 0.02 X1000 (0.0-0.2); BASO% 0.4 % (0.0-0.8); EOS# 0.44 X1000 (0.0-0.7); EOS% 7.9 % (0.0-10.0); HEMATOCRIT 23.7 % (37.0-47.0); HEMOGLOBIN 7.3 g/dL (12.0-16.0); LYMPH# 1.22 X1000 (1.2-3.4); LYMPH% 21.8 % (20.5-51.1); MCH 26.6 PG (27-31); MCHC 30.8 g/dL (33-37); MCV 86.5 FL (81-99); MONO# 0.66 X1000 (0.11-0.59); MONO% 11.8 % (1.7-9.3); MPV 8.1 FL (7.4-10.4); NEUT# 3.26 X1000 (1.4-6.5); NEUT% 58.1 % (42.2-75.2); PLT 814 X1000 (130-400); RBC 2.74 XMIL (4.2-5.4); RDW 14.8 % (11.5-14.5)
[2018-08-06] MEDS: DULERA 200 MCG/5 MCG INHALER INH SCH ×2 (07:38→19:53)
[2018-08-06 07:40] LABS: AGAP 12; ALB/GLOB RATIO 0.8; ALBUMIN 2.6 g/dL (3.5-5.0); ALKALINE PHOSPHATASE 221 U/L (32-104); BUN 4 mg/dL (8-22); CALCIUM 8.5 mg/dL (8.8-10.2); CHLORIDE 104 mmol/L (98-107); COSMO 276; CREATININE 0.5 mg/dL (0.5-0.9); ESTIMATED GFR > 60; GLUCOSE 87 mg/dL (70-104); GOT 14 U/L (10-30); GPT 11 U/L (10-36); MAGNESIUM 1.5 mg/dL (1.5-2.7); POTASSIUM 3.4 mmol/L (3.5-5.1); SODIUM 140 mmol/L (136-145); TCO2 24 mmol/L (25-35); TOTAL BILIRUBIN 0.15 mg/dL (0.20-1.00); TOTAL PROTEIN 5.7 g/dL (6.3-8.3)
[2018-08-06] MEDS ORDERED: KLOR-CON PO ONE (09:31)
[2018-08-06] MEDS: LIPITOR PO SCH (09:35)
[2018-08-06] MEDS: MIRALAX PO SCH ×2 (09:35→20:43)
[2018-08-06] MEDS: NEURONTIN PO SCH ×2 (09:35→20:44)
[2018-08-06] MEDS: PROTONIX IV SCH ×2 (09:35→20:44)
[2018-08-06] MEDS: NICODERM PATCH TD SCH (09:37)
--- NOTE | 2018-08-06 11:15 | PROGRESS NOTE ---
DATE: 08/06/2018 SUBJECTIVE: The patient today is complaining of constipation. She had a bowel movement a couple days ago that was actually watery, brown. She denies nausea and vomiting at this moment, and she has been tolerating p.o. She does not look dehydrated so I will stop the IV fluids. Hemoglobin dropped from 8.3 to 7.3. This has been notified to Gastroenterology department. She has a history of gastritis, and she has been complaining of severe epigastric pain, burning sensation. She has been placed on pantoprazole twice a day and Carafate 4 times a day, and it looks like she is getting better. She is complaining of right upper quadrant pain, but she states that this is likely due to constipation. I will get an abdominal x-ray right now to rule out any other issues. OBJECTIVE: Vital Signs: Temperature 98.2 degrees, pulse 83, respiratory rate 18, blood pressure 115/72, oxygen saturation 100% on 2 L of nasal cannula. HEENT: Head normocephalic, no trauma. PERRLA. Neck: Supple. No JVD. No masses. Central trachea. Chest: Painful to palpation on the right area close to the recent wound. Decreased breath sounds at the bases, mostly on the right side as well. The wound looks clean, dry, and intact. No yola. Abdomen: Soft. Some tenderness to palpation at the level of the right upper quadrant and epigastric area. No signs of peritoneal irritation. Positive bowel sounds. Extremities: No edema, no clubbing, no cyanosis. Neurological: The patient is alert and oriented x3. No focal deficits. DIAGNOSTIC STUDIES: WBC 5.6, hemoglobin 7.3, hematocrit 23.7, platelets 814,000. Sodium 140, potassium 3.84, chloride 104, bicarbonate 24, BUN 4, creatinine 0.5, glucose 87, calcium 8.5. Magnesium 1.5. Albumin 2.6. ASSESSMENT AND PLAN: 1. Chest pain and shortness of breath. Her breathing is much better. She is still complaining of right upper quadrant pain. Decreased breath sounds on the right side, but she has had surgery previously in that area. The wound looks fine. We will continue weaning the oxygen off. 2. Shortness of breath. As above, this is getting better. 3. Severe epigastric and right upper quadrant pain. As per the patient, it is a severe burning sensation. I have placed this patient on Protonix twice a day and Carafate, and it looks like it is working for the epigastric pain, but she is still complaining of right upper quadrant. She states that this is likely due to constipation, so I will get a new abdominal x-ray to rule out any other condition. 4. Elevated D-dimer, negative V/Q scan and lower venous ultrasound. We will monitor for now. She is status post surgery, and likely, this is the source of the elevation of the D-dimer. 5. Chronic obstructive pulmonary disease, not in exacerbation at this moment. 6. Hypertension, stable. 7. Dyslipidemia. Continue with atorvastatin. 8. Anemia. We will monitor for now. The hemoglobin dropped from 8.3 to 7.3. She has not had any bowel movements for now, so I will increase the dose of the MiraLAX from once a day to twice a day, and I will get an abdominal x-ray. cc: Janusz Castillo MD
--- NOTE | 2018-08-06 12:20 | Diag Imaging Result Doc PS360 ---
EXAM: ABDOMEN FLAT/UPRIGHT 08/06/2018 HISTORY: pain TECHNIQUE: Flat and upright abdomen COMMENT: There are phleboliths in the left pelvis. The bowel gas pattern is nonspecific. There is no evidence of mass however there may be hepatomegaly. This is more apparent than on 07/11/2018. IMPRESSION: Hepatomegaly. Otherwise no evidence of acute intra-abdominal disease. Electronically signed by Goldy Xie 08/06/2018 12:18 PM
[2018-08-06 18:14] LABS: HEMATOCRIT 25.4 % (37.0-47.0); HEMOGLOBIN 7.9 g/dL (12.0-16.0)
[2018-08-06] MEDS: SODIUM CHLORIDE 0.9% INJ SCH (20:44)
[2018-08-06] MEDS: LOVENOX SUBQ SCH (20:44)
[2018-08-06] MEDS: PATIENT'S OWN MED BOTH EYES SCH (20:50)
[2018-08-07] MEDS: DUONEB (A & A) INH SCH ×3 (03:20→11:20)
[2018-08-07] MEDS: CARAFATE PO SCH ×2 (06:50→12:24)
[2018-08-07] MEDS: NORCO-7.5 PO PRN (06:50)
[2018-08-07 07:22] LABS: AGAP 12; BUN 4 mg/dL (8-22); CALCIUM 8.7 mg/dL (8.8-10.2); CHLORIDE 102 mmol/L (98-107); COSMO 274; CREATININE 0.5 mg/dL (0.5-0.9); ESTIMATED GFR > 60; GLUCOSE 86 mg/dL (70-104); POTASSIUM 3.4 mmol/L (3.5-5.1); SODIUM 139 mmol/L (136-145); TCO2 25 mmol/L (25-35)
[2018-08-07] MEDS: DULERA 200 MCG/5 MCG INHALER INH SCH (07:30)
[2018-08-07 07:44] LABS: BASO# 0.02 X1000 (0.0-0.2); BASO% 0.3 % (0.0-0.8); EOS% 6.3 % (0.0-10.0); HEMATOCRIT 24.4 % (37.0-47.0); HEMOGLOBIN 7.6 g/dL (12.0-16.0); LYMPH# 0.98 X1000 (1.2-3.4); LYMPH% 15.4 % (20.5-51.1); MCH 26.6 PG (27-31); MCHC 31.1 g/dL (33-37); MCV 85.3 FL (81-99); MONO# 0.74 X1000 (0.11-0.59); MONO% 11.7 % (1.7-9.3); MPV 8.2 FL (7.4-10.4); NEUT# 4.21 X1000 (1.4-6.5); NEUT% 66.3 % (42.2-75.2); PLT 828 X1000 (130-400); RBC 2.86 XMIL (4.2-5.4); RDW 14.9 % (11.5-14.5); WBC 6.35 X1000 (4.8-10.8)
[2018-08-07 08:01] LABS: EOS 10 % (1-10); LYMPHS 14 % (21-51); MONO 8 % (1-9); SEGS 68 % (42-75)
[2018-08-07] MEDS: LIPITOR PO SCH (08:42)
[2018-08-07] MEDS: SODIUM CHLORIDE 0.9% INJ SCH (08:42)
[2018-08-07] MEDS: ZOFRAN IV PRN (08:42)
[2018-08-07] MEDS: NEURONTIN PO SCH (08:42)
[2018-08-07] MEDS: MIRALAX PO SCH (08:42)
[2018-08-07] MEDS: NICODERM PATCH TD SCH (08:42)
[2018-08-07] MEDS: PROTONIX IV SCH (08:42)
[2018-08-07] MEDS ORDERED: KLOR-CON PO ONE (08:44)
[2018-08-07 11:10] VITALS: BP 107/70
--- NOTE | 2018-08-07 11:30 | PROGRESS NOTE ---
DATE: 08/07/2018 SUBJECTIVE: Patient is sitting up in the bed in no acute distress. She states her abdominal pain, and nausea, and vomiting have improved. She states she did have several bowel movements. She states she believes she will go home today. She had an abdominal x-ray on 08/06/2018 that showed hepatomegaly. OBJECTIVE: Vital Signs: Temperature 98.4 degrees, pulse 97, respirations 20, blood pressure 114/73. General: Patient is awake, alert, no acute distress. LABORATORY: Hematology: WBC 6.35, hemoglobin 7.6, hematocrit 24.4, MCV 85.3. Chemistry: Sodium 139, potassium 3.4, chloride 102, CO2 25, BUN 4, creatinine 0.5, glucose 86. Total bilirubin 0.15, AST 14, ALT 11, alkaline phosphatase 221. ASSESSMENT AND PLAN: 1. Chest pain and shortness of breath have improved. 2. Epigastric pain and right upper quadrant pain has improved with proton-pump inhibitor and Carafate. 3. Constipation. Continue MiraLAX. 4. Anemia. There has been no evidence of active bleeding. Continue to monitor. 5. I have instructed patient to follow up with us as an outpatient. I have given her contact information, and she was a prior patient of . I have discussed this case with Dr. Hidalgo. Dictated by ANA Perez for Abdifatah Hidalgo MD cc: ANA Fonseca MD
--- NOTE | 2018-08-07 12:37 | DISCHARGE SUMMARY ---
ADMISSION DATE: 08/03/2018 DISCHARGE DATE: 08/07/2018 DISCHARGE DIAGNOSES: 1. Chest pain and shortness of breath. Shortness of breath has resolved. Chest pain likely due to postsurgical pain. 2. Severe epigastric pain likely due to gastritis, improving. 3. Elevated D-dimer with negative V/Q scan and lower Doppler venous ultrasound negative. 4. Chronic obstructive pulmonary disease, not in exacerbation. 5. Hypertension, stable. 6. Dyslipidemia. 7. Anemia. PROCEDURES PERFORMED: 1. Chest x-ray dated 07/30/2018. Impression: Mild interval improvement. 2. CT scan dated 08/03/2018. Impression: Trace right pneumothorax, small right pleural effusion. 3. V/Q scan of the lung dated 08/03/2018. Impression: Negative for pulmonary embolism. 4. Doppler venous ultrasound of the lower extremities dated 08/03/2018. Normal venous compression and normal venous flow. No DVT noted. 5. Echocardiogram dated 08/03/2018. Trace aortic regurgitation. Estimated systolic pulmonary artery pressure by Doppler is 35 mmHg suggesting mild pulmonary hypertension. Normal left ventricular dimensions with an ejection fraction of 65%. 6. Abdominal x-ray dated 08/06/2018. Impression: Hepatomegaly. Otherwise, no evidence of intra- abdominal disease. HOSPITAL COURSE: A 57-year-old female presented to the emergency department with significant pain and discomfort associated with recent thoracotomy. In fact, she still has her yola from the thoracotomy and lobectomy. She has a history of COPD and dyspnea. She came in because she has much more severe right-sided chest pain that started getting worse the morning of admission on 08/03/2018 at 5 a.m., complaining of shortness of breath, no productive cough. No fever, no chills. But she reported some night sweats. It looks like the pathology for the lobectomy was negative. She had necrotizing granulomatous lesions. She was not hypoxemic. No white blood cell count elevation. X-ray showed postoperative changes, but actually looks a little bit better compared with the previous x-rays. The patient was admitted to the medical floor. Surgery Department evaluated this patient. The plan was to remove the yola and they believe she was progressing well from the surgical standpoint. She does have breath sounds bilaterally and the wound looks good. No sign of bleed or infection. Pulmonary Department also evaluated this patient. They agree with the treatment. We asked for some blood work to rule out bacteremia and actually they have been negative since 08/03/2018. Will continue breathing treatment and pain management. When I examined the patient again she was complaining of severe epigastric pain. She described the pain as a burning sensation. She has a history of gastritis and given her current hospitalization and treatment probably this patient's gastritis got worse, so I started this patient on pantoprazole twice a day and Carafate which has been improving the pain and the burning sensation. Gastroenterology Department evaluated this patient and they agree with the treatment. She has been complaining also of constipation and I increased the dose of the MiraLAX. She had a bowel movement yesterday and actually 3 bowel movements today. I explained to the patient in detail that she will continue with MiraLAX twice a day to have at least a couple of bowel movements per day, but if she has more than 3 probably she needs to decrease the dose to once a day or even stop it. She seems to understand. X-ray of the abdomen done yesterday did not show any acute intra-abdominal disease. Today this patient is feeling better. She has been complaining of mild nausea on and off. She will be discharged home. I explained to her in detail the treatment and she seems to understand. Upon discharge, the patient was in a stable medical condition, tolerating p.o. as well. OBJECTIVE: Vital Signs: Temperature 98.4, pulse 94, respiratory rate 20, blood pressure 114/73, oxygen saturation 100% on room air. HEENT: Head normocephalic. No trauma. PERRLA. Neck: Supple. No JVD. No masses. Central trachea. Chest: Painful to palpation on the right area close to the recent wound. Decreased breath sounds on the right base. The wound looks clean, dry and intact. No yola. Abdomen: Soft. Mild tenderness to palpation at the level of the right upper quadrant and epigastric area. No signs of peritoneal irritation. Positive bowel sounds. Extremities: No edema. No clubbing. No cyanosis. Neurologic: The patient is alert and oriented x 3. No focal deficits. LABORATORY: WBC 6.3, hemoglobin 7.6, hematocrit 24.4, platelets 828,000. Sodium 139, potassium 3.4, chloride 102, bicarbonate 25, BUN 4, creatinine 0.5, glucose 86, calcium 8.7. FOLLOWUP: Follow up with her primary doctor in one week. She will need to call for an appointment and follow up with Gastroenterology Department in one month. DISCHARGE MEDICATIONS: 1. Dulera 200 mcg/5 mcg inhaler 2 puff inhaler daily. 2. Vyzulta 1 drop in both eyes at bedtime. 3. Gabapentin 300 mg p.o. b.i.d. 4. Atorvastatin 20 mg p.o. daily. 5. ProAir HFA 2 puff inhaler as needed every 4 to 6 hours. 6. Carafate 1 g p.o. before meals and before bed. 7. MiraLAX 17 g p.o. b.i.d. 8. Protonix 40 mg p.o. b.i.d. 9. [place] 7.5 one tablet p.o. q.4 hours as needed. TIME SPENT: Time discharging this patient 35 minutes. cc: Janusz Castillo MD MTDD
== END 2018-08-07 14:03 | disposition home health service (06) | DRG 948 ==
LOC: ED 03:30 → EDIPHOLD 03:30 → OBSVTOIN 10:36 → SUATTDRO 10:36 → 3N 14:27
PROVIDERS: ATTEND Internal Medicine
CPT/HCPCS: 71010; 71045; 71250; 74019; 74020; 78582; 80048; 80053; 80101; 80301; 80307; 80324; 80345; 80346; 80353; 80358; 80361; 80365; 81001; 82550; 82805; 83735; 83880; 83992; 84484; 85014; 85018; 85025; 85379; 85610; 87040; 93005; 93306; 93970; 94640; 94761; 96374; 96375; 99285; A9270; A9539; A9540; C9113; G0431; G0434; G0479; G0480; J1170; J1650; J2270; J2405; J7030; S0164